=== PATIENT | male | born 1935 | race Two or more races ===

== ENCOUNTER 2024-06-01 13:16 | Emergency (ER) | payer MEDICARE, BC, SELFPAY ==
[2024-06-01 13:28] VITALS: BP 149/83; PULSE 77; RESP 22; TEMP 36.6; O2SAT 95
--- NOTE | 2024-06-01 13:31 | EKG_ITS ---
[facility] Test Date: 2024-06-01 Pat Name: SARA WILSON Department: Room: - Gender: Male Order Processor: : 1935 Requested By: Paulino Gamboa (URINALYSIS TECHNICIAN) Order Number: [id number] Reading MD: Paulino Gamboa (URINALYSIS TECHNICIAN) Measurements Intervals [place] Rate: 80 P: SD: QRS: 258 QRSD: 128 T: 28 QT: 455 QTc: 527 Interpretive Statements ATRIAL FIBRILLATION MARKED RIGHT AXIS DEVIATION [QRS AXIS > 100] RIGHT BUNDLE BRANCH BLOCK [120+ ms QRS DURATION, UPRIGHT V1, 40+ ms S IN I/aVL/V4/V5/V6] ANTEROSEPTAL MYOCARDIAL INFARCTION , OF INDETERMINATE AGE [40+ ms Q WAVE IN V1-V4] Compared to ECG 10/29/2023 14:36:08 Right-axis deviation now present Myocardial infarct finding still present /store/S0/[id number]
--- NOTE | 2024-06-01 13:31 | XR_ITS ---
Examination: PA lateral chest 2 views TECHNIQUE: Upright PA lateral chest 2 views Exam date and time: June 01, 2024 1409 hours Comparison October 29, 2023 INDICATIONS: Wheezing one week. FINDINGS: Mild bibasilar pneumonia Mild prominence left ventricle Retrocardiac gastric hernia Mild vascular congestion IMPRESSION: Mild bibasilar pneumonia
--- NOTE | 2024-06-01 13:31 | PD.EDRME ---
Rapid Medical Screening Exam E Arrival date/time: 06/01/24 13:16 88-year-old male presents emergency department today complaints of cough, congestion, shortness of breath patient currently on antibiotics for UTI Chief Complaint: Flu Like Symptoms Vital signs: Vital Signs Temperature 97.9 F 06/01/24 13:28 Pulse Rate 77 06/01/24 13:28 Respiratory Rate 22 H 06/01/24 13:28 Blood Pressure 149/83 H 06/01/24 13:28 Pulse Oximetry (%) 95 06/01/24 13:28 Oxygen Delivery Method Room Air 06/01/24 13:28
[2024-06-01 13:54] LABS: Basophils % (Auto) 1 % (0-2.5); Eosinophils # (Auto) 0.2 Thou/mm3 (0.0-0.5); Eosinophils % (Auto) 2 % (0-10); Hematocrit 37.3 % (41.0-53.0); Hemoglobin 11.9 g/dL (13.5-16.0); Immature Granulocytes % (Auto) 0 % (0-0); Immature Granulocytes Auto 0.02 Thou/mm3 (0.00-0.00); Lymphocytes # (Auto) 0.9 Thou/mm3 (1.0-4.8); Lymphocytes % (Auto) 13 % (10-50); Mean Corpuscular HGB Conc 31.9 g/dl (31.0-37.0); Mean Corpuscular Hemoglobin 26.9 pg (25.0-35.0); Mean Corpuscular Volume 84 fL (80-100); Monocytes # (Auto) 0.6 Thou/mm3 (0.0-0.8); Monocytes % (Auto) 8 % (0-12); Neutrophils # (Auto) 5.4 Thou/mm3 (1.8-7.7); Neutrophils % (Auto) 76 % (37-80); Nucleated Red Blood Cell % 0 /100 WBC (0); Platelet Count 173 Thou/mm3 (140-440); Red Blood Count 4.43 Miln/mm3 (4.50-5.90)
[2024-06-01 14:07] LABS: INR 1.2 (0.9-1.3); Partial Thromboplastin Time 27.3 Seconds (22.0-36.0); Prothrombin Time 12.5 Seconds (9.0-12.2)
[2024-06-01 14:14] LABS: Alanine Aminotransferase 30 U/L (10-49); Albumin, Serum 3.5 gm/dL (3.4-4.8); Albumin/Globulin Ratio 1.2 (1.2-2.2); Alkaline Phosphatase 114 U/L (46-116); Anion Gap 5 (7-16); Aspartate Amino Transferase 42 U/L (0-34); BUN/Creatinine Ratio 14 Ratio (12-20); Bilirubin,Total 1.2 mg/dL (0.3-1.2); Blood Urea Nitrogen 17 mg/dL (9-23); Calcium (Corrected) 9.4 mg/dL (8.5-10.1); Carbon Dioxide 27.2 mMol/L (20.0-31.0); Chloride 106 mMol/L (98-107); Creatinine (Component) 1.2 mg/dL (0.6-1.3); Glucose 322 mg/dL (74-106); LDH (Lactate Dehydrogenase) 387 U/L (120-246); Magnesium 1.9 mg/dL (1.6-2.6); Osmolality,Calculated 289 (275-295); Potassium 4.1 mMol/L (3.4-5.1); Sodium 138 mMol/L (136-145); Total Protein 6.5 gm/dL (5.7-8.2); eGFR 58 See Note
[2024-06-01 14:28] LABS: Collection Type, Urine Clean Catch; Squamous Epithelial Cell,Urine 0 /hpf (0-5)
[2024-06-01 14:36] LABS: B-Type Natriuretic Peptide 1645 pg/mL (0-100)
[2024-06-01 14:42] LABS: Bilirubin,Urine Negative (Negative); Blood,Urine Trace (Negative); Clarity,Urine Clear (Clear/Hazy); Color,Urine Lt-Yellow (Lt Yel-Yel); Glucose, Urine 3+ (Negative); Ketones,Urine Negative (Negative); Leukocyte Esterase,Urine Negative (Negative); Nitrite,Urine Negative (Negative); Protein,Urine 1+ (Neg - Trace); RBC,Urine 4 /hpf (0-3); Specific Gravity,Urine 1.018 (1.001-1.035); Urobilinogen,Urine Negative mg/dL (0.0-1.0); WBC,Urine 8 /hpf (0-5)
[2024-06-01 14:51] LABS: Amphetamine/Methamp Scrn,U Negative (Negative); Barbiturate Screen,Urine Negative (Negative); Benzodiazepines Screen,Urine Negative (Negative); Benzoylecgonine Screen, Ur Negative (Negative); Fentanyl Screen,Urine Positive (Negative); Opiate Screen,Urine Negative (Negative); THC Screen,Urine Negative (Negative)
[2024-06-01 15:09] VITALS: BP 102/87; PULSE 77; RESP 24; TEMP 36.5; O2SAT 94
[2024-06-01 15:42] VITALS: BMI 25.2
--- NOTE | 2024-06-01 15:49 | PD.EDADULT ---
ED General RME/HPI General Chief complaint: Flu Like Symptoms Stated complaint: WEAK, SOB, BS LEVELS ERRATIC Time Seen by Provider: 06/01/24 15:38 Arrival date/time: 06/01/24 13:16 CC: Some wheezing mild cough with malaise and fatigue over the last several days. Patient denies fever chills denies acute shortness of breath. Daughter at bedside state the diabetes is well-managed they do not have his blood sugars between 103 100 but never in the 300. The patient took his insulin late today secondary to his concerns. The patient is awake alert oriented speaking in full sentences but has audible expiratory wheezing between words. Patient is not in any respiratory distress RME / HPI RME / HPI narrative: 06/01/24 13:16 88-year-old male presents emergency department today complaints of cough, congestion, shortness of breath patient currently on antibiotics for UTI Related Data Home Medications ?Medication ?Instructions ?Recorded ?Confirmed lovastatin 40 mg tablet 40 mg PO HS #0 tabs 04/02/16 10/29/23 mirabegron 50 mg tablet,extended 50 mg PO QDAY 08/27/17 10/29/23 release 24 hr (Myrbetriq) montelukast 10 mg tablet 10 mg PO QDAY 09/17/18 10/29/23 donepezil 5 mg tablet 5 mg PO Q12HR 01/14/22 10/29/23 ferrous sulfate 325 mg (65 mg 325 mg PO QDAY 01/14/22 10/29/23 iron) tablet (FeroSul) losartan 25 mg tablet 25 mg 1XD 06/09/23 10/29/23 acetaminophen 650 mg tablet 650 mg PO Q4H PRN Pain or Fever 07/27/23 10/29/23 bisacodyl 10 mg rectal suppository 10 mg NH QDAY PRN Constipation 07/27/23 10/29/23 (Dulcolax (bisacodyl)) Previous Rx's ?Medication ?Instructions ?Recorded ascorbic acid (vitamin C) 250 mg 500 mg (2 x 250 mg) PO BID #60 tabs 07/31/23 tablet (Vitamin C) zinc sulfate 50 mg zinc (220 mg) 220 mg (4.4 x 50 mg zinc (220 mg)) 07/31/23 capsule PO QDAY #30 caps lancets 30 gauge and blood glucose #50 ea 08/08/23 strips combo pack pen needle, diabetic 32 gauge x #100 ea 08/08/23 1 (Novofine 32) aspirin 81 mg tablet,delayed 81 mg PO QDAY #30 tabs 11/01/23 release flash glucose scanning reader #1 ea 11/01/23 (FreeStyle Ector 2 Bascom) flash glucose sensor (FreeStyle #1 ea 11/01/23 Ector 2 Sensor kit) insulin detemir U-100 100 unit/mL 15 unit (0.15 mL) subcut HS #10 mL 11/01/23 subcutaneous solution (Levemir U-100 Insulin) levothyroxine 125 mcg capsule 125 mcg PO QDAY #30 caps 11/01/23 nitrofurantoin 100 mg PO BID #14 caps 11/01/23 monohydrate/macrocrystals 100 mg capsule pen needle, diabetic 32 gauge x #100 ea 11/01/2307/23 (Novofine 32) insulin lispro 100 unit/mL 1 sliding scale dose subcut .TIDAC 11/02/23 subcutaneous solution #10 mL furosemide 20 mg tablet (Lasix) 20 mg PO QAM #3 tabs 06/01/24 Allergies Allergy/AdvReac Type Severity Reaction Status Date / Time No Known Allergies Allergy Verified 06/01/24 13:20 Review of Systems Review of Systems Narrative Review of Systems: GEN: No fever, no chills, no weight loss EYES: No discharge, no visual changes, no pain HEENT: No ear pain, no congestion, no sore throat PULM: + shortness of breath, no cough, no congestion CV: No chest pain, no dyspnea on exertion, no palpitations GI: No nausea, no vomiting, no diarrhea, no pain, no constipation : No frequency, no urgency, no dysuria MUSC/SKEL: No joint pain, no back pain SKIN: No rash PSYCH: No hallucinations, no depression HEME/LYMPH: No easy bleeding or bruising tendencies NEURO: No weakness, no headache Past Medical History Past Medical History NEUROLOGIC: Positive Dementia; Negative Neurological Disorders or Seizures CARDIAC: Positive Cardiac Disorders, Myocardial Infarction, Coronary Artery Disease, Hypercholesterolemia and Hypertension; Negative Congestive Heart Failure RESPIRATORY: Positive Asthma, Pneumonia and Sleep Apnea; Negative Chronic Obstructive Pulmonary Disease (COPD) GASTROINTESTINAL: Positive Gastrointestinal Disorders, Diverticulosis and Gastroesophageal Reflux Disease GENITOURINARY: Positive Genitourinary Disorders, Kidney Stones and Prostate Cancer; Negative Renal Disease REPRODUCTIVE: Negative Breast Cancer MUSCULOSKELETAL: Positive Musculoskeletal Disorders, Arthritis and Fractures ENT: Positive Cataracts ENDOCRINE: Positive Endocrine Disorders, Diabetes Mellitus Type 2 and Hypothyroidism; Negative Diabetes Mellitus Type 1 HEMATOLOGIC: Negative Blood Disorders, Anemia or Sickle Cell Disease PSYCHO/SOCIAL: Positive Depression OTHER HISTORY: Positive Hospitalization, Blood Transfusions, Radiation Therapy, Chicken Pox, Measles, Mumps, Cancer and Prostate Cancer; Negative Autoimmune Disease, Shingles, Falls, Blood Transfusion Reaction, Anesthesia Reactions, Organ Transplant, Chemotherapy, MRSA or Breast Cancer Family History FAMILY HISTORY: Positive Family Cardiac Disorders, Family Cancer and Family Anesthesia Reaction; Negative Family Psychiatric Problems, Family Respiratory Disorders, Family Gastrointestinal Problems or Family Surgery Surgical History SURGICAL: Positive Cardiac Surgery, Coronary Stent, Ear Surgery and Joint Replacement; Negative Endocrine Surgery, Abdominal Surgery, Nephrectomy, Neurologic Surgery, Vasectomy or Organ Transplant Social History SMOKING STATUS: Never smoker SUBSTANCE USE: does not use ED Exam Narrative Physical exam: [General: Obese not in any acute distress Head normocephalic HEENT: Eyes pupils are PERRLA EOMs are intact, there is right eye circumoral crusting but no injected conjunctiva. All other subsystems of HEENT are within acceptable limits Neck is supple nontender Chest equal chest rise nontender to palpation Respiratory: Bibasilar end inspiratory crackles left side greater than right. Upper lobes clear. CV: Rate rhythm is regular no murmurs rubs or clicks Abdomen is distended secondary to body habitus soft nontender no masses positive bowel sounds all 4 quadrants Back: No CVA tenderness no spinous process tenderness from cervical spine thoracic and lumbar spine Skin: Intact no petechiae rash induration ulceration or crepitus Extremities: Moving all extremity against resistance cap refill less than 2 seconds neurosensory intact. 2+ pitting edema to the lower extremities. Neuro: Awake alert oriented x3 Gl[place]ow coma 15 no focal deficits] Course Course Course Narrative: Patient is voided approximately 300 mL of urine. At 1803 Reexamination of this patient at 1947, the patient is speaking in full sentences with less audible wheezing. There is a decrease in the amount of fluid in the lower extremities the patient is incontinent's and voiding multiple times into her depends that had to be changed several times during the course of the admission to the hospital emergency room. At this time I find there are no acute findings require emergent or immediate intervention the patient has no chest pain shortness of breath has resolved. Patient is an early CHF. Patient will be discharged home with 3 days worth of low-dose Lasix. Daughter and patient are in agreement with this plan. Quality Measures none Orders Category Date Time Status Bedside COVID-19 Antigen Test NOW Care 06/01/24 13:31 Completed Bedside Influenza A&B Antigen Test NOW Care 06/01/24 13:31 Completed EKG (ED ONLY) *Do not use* NOW Care 06/01/24 13:31 Completed Saline [Insert IV] NOW Care 06/01/24 15:46 Completed EKG (ED Only) Stat Exams 06/01/24 13:31 Draft XR chest 2V Stat Exams 06/01/24 13:31 Completed B-Type Natriuretic Peptide Stat Lab 06/01/24 13:43 Completed CBC Stat Lab 06/01/24 13:43 Completed Comprehensive Metabolic Panel Stat Lab 06/01/24 13:43 Completed Drug Screen,Urine Stat Lab 06/01/24 14:02 Completed LDH (Lactate Dehydrogenase) Stat Lab 06/01/24 13:43 Completed Magnesium Stat Lab 06/01/24 13:43 Completed Partial Thromboplastin Time Stat Lab 06/01/24 13:43 Completed Prothrombin Time with INR Stat Lab 06/01/24 13:43 Completed Troponin I Stat Lab 06/01/24 13:43 Completed Urinalysis Stat Lab 06/01/24 14:02 Completed Furosemide [Lasix Inj] Med 06/01/24 15:46 Discontinued 20 mg IVP X1 ONE Vital Signs Vital signs: Vital Signs Temperature 97.9 F 06/01/24 13:28 Pulse Rate 77 06/01/24 13:28 Respiratory Rate 22 H 06/01/24 13:28 Blood Pressure 149/83 H 06/01/24 13:28 Pulse Oximetry (%) 95 06/01/24 13:28 Oxygen Delivery Method Room Air 06/01/24 13:28 [facility] Patient data External records reviewed:: [facility] previous records Clinical information provided by:: patient and family Social determinants that could affect healthcare access:: none Patient has the following chronic illnesses:: Diabetes hypertension How is presenting disease/condition affected by chronic disease/condition?: uneffected by Evaluation data The following diagnostics were reviewed and interpreted by me:: lab results, radiology exam(s) and EKG tracing(s) Lab and/or radiology exams considered but not ordered:: EKG performed at 1336 shows ventricular rate of 80 QRS of 128 QTc of 491 this is A-fib right axis deviation. When compared to an old EKG of October 2023 there are no significant changes. CBC shows no leukocytosis H&H of 11 and 37 is stable anemia, no thrombocytopenia Coags show an INR 1.2 PT PTT within acceptable limits CMP shows sodium 138 potassium 4.1 chloride of 106 CO2 of 27.2 BUN of 17 creatinine 1.2 glucose of 322. LDH of 357 Troponin 0.07 BNP of 1647 Interpretation Summary: Although troponin is elevated when reviewed and it is minimally elevated compared to almost every other lab draw which shows an elevated troponin higher than this 1 BNP is elevated at last BMP is several years ago and was only 380. I suspect this patient is mildly fluid overloaded. Medications Medications considered but not ordered:: None Medication administrations:: Medication Administration History Discontinued Medications Furosemide (Furosemide Inj 10 Mg/Ml Vial 2 Ml) 20 mg IVP X1 ONE Stop: 06/01/24 15:47 Last Admin: 06/01/24 16:10 Dose: 20 mg Documented By: HARINDER None Consultations Consultation(s) initiated? (list below): No Diagnosis Differential Diagnosis ED Complaint MDM: CHF COPD pneumonia Most likely diagnosis given after review of the tests above:: CHF Admission Indicated Admission indicated?: not indicated Explain why admission is indicated or not indicated:: Stable for outpatient follow-up Admission Request Was there a request for admission?: No Disposition Plan Disposition Plan: Discharge Discharge Attestation Discharge Attestation: The patient and all family members were given an opportunity to ask questions and understood the discharge instructions. Discharge instructions specifically effects, indications for sooner follow up or return to the emergency department, and the expected course of current diagnosis. Patient condition: Stable Medical Decision Making Differential Diagnosis Differential Diagnosis: CHF COPD pneumonia Lab Data 06/01/24 13:43 06/01/24 13:43 Labs: Lab Results 06/01/24 06/01/24 Range/Units 13:43 14:02 WBC 7.0 (3.8-10.6) Thou/mm3 RBC 4.43 L (4.50-5.90) Miln/mm3 Hgb 11.9 L (13.5-16.0) g/dL Hct 37.3 L (41.0-53.0) % MCV 84 (80-100) fL MCH 26.9 (25.0-35.0) pg MCHC 31.9 (31.0-37.0) g/dl RDW Std Deviation 52.0 H (35.1-43.9) fL Plt Count 173 (140-440) Thou/mm3 Neut % (Auto) 76 (37-80) % Lymph % (Auto) 13 (10-50) % [place] % (Auto) 8 (0-12) % Eos % (Auto) 2 (0-10) % Baso % (Auto) 1 (0-2.5) % Neut # (Auto) 5.4 (1.8-7.7) Thou/mm3 Lymph # (Auto) 0.9 L (1.0-4.8) Thou/mm3 [place] # (Auto) 0.6 (0.0-0.8) Thou/mm3 Eos # (Auto) 0.2 (0.0-0.5) Thou/mm3 Baso # (Auto) 0.0 (0.0-0.2) Thou/mm3 Immature Gran # (Auto) 0.02 H (0.00-0.00) Thou/mm3 Absolute Nucleated RBC 0.00 (0.00-0.00) Thou/mm3 Immature Gran % 0 (0-0) % Nucleated RBC % 0 (0) /100 WBC PT 12.5 H (9.0-12.2) Seconds INR 1.2 (0.9-1.3) APTT 27.3 (22.0-36.0) Seconds Sodium 138 (136-145) mMol/L Potassium 4.1 (3.4-5.1) mMol/L Chloride 106 (98-107) mMol/L Carbon Dioxide 27.2 (20.0-31.0) mMol/L Anion Gap 5 L (7-16) BUN 17 (9-23) mg/dL Creatinine 1.2 (0.6-1.3) mg/dL Estim Creat Clear Calc Not Performed. eGFR 58 L (60 - ) See Note BUN/Creatinine Ratio 14 (12-20) Ratio Glucose 322 H (74-106) mg/dL Calculated Osmolality 289 (275-295) Calcium 9.0 (8.3-10.6) mg/dL Corrected Calcium 9.4 (8.5-10.1) mg/dL Magnesium 1.9 (1.6-2.6) mg/dL Total Bilirubin 1.2 (0.3-1.2) mg/dL AST 42 H (0-34) U/L ALT 30 (10-49) U/L Alkaline Phosphatase 114 (46-116) U/L Lactate Dehydrogenase 387 H (120-246) U/L Troponin I 0.070 H* (0.0-0.045) ng/mL B-Natriuretic Peptide 1645 H* (0-100) pg/mL Total Protein 6.5 (5.7-8.2) gm/dL Albumin 3.5 (3.4-4.8) gm/dL Globulin 3.0 (2.3-3.5) gm/dL Albumin/Globulin Ratio 1.2 (1.2-2.2) Ur Collection Type Clean Catch Urine Color Lt-Yellow (Lt Yel-Yel) Urine Clarity Clear (Clear/Hazy) Urine pH 6.0 (5.0-7.0) Ur Specific [place] 1.018 (1.001-1.035) Urine Protein 1+ A (Neg - Trace) Urine Glucose (UA) 3+ A (Negative) Urine Ketones Negative (Negative) Urine Blood Trace (Negative) Urine Nitrite Negative (Negative) Urine Bilirubin Negative (Negative) Urine Urobilinogen (Auto) Negative (0.0-1.0) mg/dL Ur Leukocyte Esterase Negative (Negative) Urine RBC 4 H (0-3) /hpf Urine WBC 8 H (0-5) /hpf Ur Squamous Epith Cells 0 (0-5) /hpf Urine Bacteria None (None) Urine Opiates Screen Negative (Negative) Urine Fentanyl Screen Positive A (Negative) Ur Barbiturates Screen Negative (Negative) U Amphetamin/Meth Scrn Negative (Negative) U Benzodiazepines Scrn Negative (Negative) U Cocaine Metab Screen Negative (Negative) U Marijuana (THC) Screen Negative (Negative) Discharge Plan Plan Patient Disposition: HOME (Self Care) Patient condition on transfer: Stable Prescriptions/Referrals Prescriptions/Med Rec: New furosemide [Lasix] 20 mg tablet 20 mg PO QAM Qty: 3 0RF No Action lovastatin 40 MG tablet 40 mg PO HS Qty: 0 donepezil 5 mg tablet 5 mg PO Q12HR Patient Comments: TAKE 1 TABLET BY MOUTH AT BEDTIME ferrous sulfate [FeroSul] 325 mg (65 mg iron) tablet 325 mg PO QDAY Patient Comments: TAKE 1 TABLET BY MOUTH EVERY DAY Myrbetriq 50 mg Tablet Extended Release 24 Hr 50 mg PO QDAY montelukast 10 mg Tablet 10 mg PO QDAY acetaminophen 650 mg Tablet 650 mg PO Q4H PRN (Reason: Pain or Fever) bisacodyl [Dulcolax (bisacodyl)] 10 mg Suppository 10 mg NH QDAY PRN (Reason: Constipation) Rx Instructions: If MOM ineffective or no BM for 8 hours ascorbic acid (vitamin C) [Vitamin C] 250 mg Tablet 500 mg PO BID Qty: 60 0RF zinc sulfate 50 mg zinc (220 mg) Capsule 220 mg PO QDAY Qty: 30 0RF (DME) pen needle, diabetic [Novofine 32] 32 gauge x 1/4 needle See Rx Instructions .Route Qty: 100 2RF Rx Instructions: As directed (DME) lancets-blood glucose strips 30 gauge combo pack See Rx Instructions .Route Qty: 50 2RF Rx Instructions: As directed losartan 25 mg tablet 25 mg 1XD Patient Comments: TAKE 3 TABLET BY MOUTH EVERY DAY AT NOON nitrofurantoin monohyd/m-cryst 100 mg Capsule 100 mg PO BID Qty: 14 0RF aspirin 81 mg Tablet,Delayed Release (Dr/Ec) 81 mg PO QDAY Qty: 30 0RF (DME) FreeStyle Ector 2 Bascom Misc See Rx Instructions .Route Qty: 1 0RF Rx Instructions: As directed (DME) FreeStyle Ector 2 Sensor Kit See Rx Instructions .Route Qty: 1 0RF Rx Instructions: As directed levothyroxine 125 mcg capsule 125 mcg PO QDAY Qty: 30 0RF Rx Instructions: take 1/2 capsule Levemir U-100 Insulin 100 unit/mL solution 15 unit subcut HS Qty: 10 1RF (DME) pen needle, diabetic [Novofine 32] 32 gauge x 1/4 needle See Rx Instructions .Route Qty: 100 0RF Rx Instructions: As directed insulin lispro 100 unit/mL solution 1 sliding scale dose subcut .TIDAC MDD 30 units Qty: 10 0RF Rx Instructions: Per patient's sliding scale Referrals: Chris Teran MD [Primary Care Provider] - In 1 week Problem List Clinical Impression: Congestive heart failure Patient/Caregiver Discharge Instructions Other Activity Instructions:: Avoid high salt content follow-up with Dr. Abdias Crowe as stated. If there are worsening of symptoms in spite of medications return immediately to the emergency room for reevaluation. Education Materials: Heart Failure Dc Print Language: Burmese Stand Alone Forms: [place] Award Info., Work/School Release, Patient Portal Info Letter MD Attestation MD Attestation The patient was seen by the midlevel practitioner. I, the co-signing physician, was present during the entire ER visit. While I did not physically examine the patient, I was available for consultation as needed.
[2024-06-01 16:10] VITALS: BP 120/82; PULSE 80
[2024-06-01] MEDS: FUROSEMIDE INJ 10 MG/ML VIAL 2 ML 20 MG IVP (16:10)
[2024-06-01 18:37] VITALS: BP 172/100; PULSE 61; RESP 15; TEMP 36.4; O2SAT 95
--- NOTE | 2024-06-01 19:11 | PC.NURSE ---
pt has been inc of urine and brief is saturated. Pt has been up 4 or 5 times attempting BM. myriam said that is not unusual for hime. Pt in no acute distress.
--- NOTE | 2024-06-01 19:33 | PC.NURSE ---
Assume care for this 88 year old male and got report from [employer]. Pt is here with c/o of SOB with generalized malaise. Pt is a GCS of 15, A&O X4 and daughter at bedside.
[2024-06-01 20:09] VITALS: BP 170/103; PULSE 63; RESP 16; TEMP 36.6; O2SAT 94
== END 2024-06-01 20:09 | disposition home or self-care (01) ==
PROVIDERS: Nurse Practitioner Primary Care; Emergency Provider Emergency Medicine; PCP Internal Medicine
DX: I11.0 Hypertensive heart disease with heart failure (principal); I50.9 Heart failure, unspecified; R79.89 Other specified abnormal findings of blood chemistry; I48.91 Unspecified atrial fibrillation; I45.10 Unspecified right bundle-branch block; I25.10 Atherosclerotic heart disease of native coronary artery without angina pectoris; E78.00 Pure hypercholesterolemia, unspecified; I25.2 Old myocardial infarction
CPT/HCPCS: 36415; 71046; 80053; 80307; 81001; 83615; 83735; 83880; 84484; 85025; 85610; 85730; 87400; 87811; 93005; 96374; 99284; J1940

== ENCOUNTER 2024-06-27 14:24 | Emergency (ER) | payer MEDICARE, BC, SELFPAY ==
[2024-06-27 14:26] VITALS: BMI 25.0
[2024-06-27 14:38] VITALS: BP 142/86; PULSE 64; RESP 18; TEMP 36.4; O2SAT 93
--- NOTE | 2024-06-27 14:51 | XR_ITS ---
Examination: AP lateral chest 2 views TECHNIQUE: Upright AP lateral chest 2 views Exam date and time: June 27, 2024 1519 hours Comparison June 01, 2024 INDICATIONS: SOB today. FINDINGS: Bilateral perihilar bibasilar pneumonia Mild prominence left ventricle with mild vascular congestion Reduced inspiratory effort IMPRESSION: Bilateral pneumonia
--- NOTE | 2024-06-27 14:51 | EKG_ITS ---
[facility] Test Date: 2024-06-27 Pat Name: SARA WILSON Department: Room: - Gender: Male Dishtank Operator: : 1935 Requested By: Jeb Garcia Order Number: [id number] Reading MD: Jeb Garcia Measurements Intervals [place] Rate: 87 P: 256 MD: 247 QRS: -37 QRSD: 141 T: 21 QT: 421 QTc: 507 Interpretive Statements SINUS RHYTHM WITH FIRST DEGREE AV BLOCK INDETERMINATE AXIS RIGHT BUNDLE BRANCH BLOCK [120+ ms QRS DURATION, UPRIGHT V1, 40+ ms S IN I/aVL/V4/V5/V6] POSSIBLE ANTERIOR MYOCARDIAL INFARCTION , OF INDETERMINATE AGE [30 ms Q WAVE IN V3/V4, OR R < 0.2 mV IN V4] Compared to ECG 06/01/2024 13:36:48 First degree AV block now present Indeterminate axis now present Atrial fibrillation no longer present Right-axis deviation no longer present Myocardial infarct finding still present /store/S0/[id number]
--- NOTE | 2024-06-27 14:52 | PD.EDRME ---
Rapid Medical Screening Exam RME Arrival date/time: 06/27/24 14:24 88-year-old male with a history of CHF reports with complaints of shortness of breath lower extremity swelling and redness for several days Chief Complaint: Extremity Problem,Nontraumatic Time Seen by Provider: 06/27/24 14:27 Vital signs: Vital Signs Temperature 97.6 F 06/27/24 14:38 Pulse Rate 64 06/27/24 14:38 Respiratory Rate 18 06/27/24 14:38 Blood Pressure 142/86 H 06/27/24 14:38 Pulse Oximetry (%) 93 L 06/27/24 14:38 Oxygen Delivery Method Room Air 06/27/24 14:38
[2024-06-27 15:43] LABS: Basophils # (Auto) 0.1 Thou/mm3 (0.0-0.2); Basophils % (Auto) 1 % (0-2.5); Eosinophils # (Auto) 0.1 Thou/mm3 (0.0-0.5); Eosinophils % (Auto) 2 % (0-10); Hematocrit 38.9 % (41.0-53.0); Hemoglobin 12.1 g/dL (13.5-16.0); Immature Granulocytes % (Auto) 0 % (0-0); Immature Granulocytes Auto 0.01 Thou/mm3 (0.00-0.00); Lymphocytes % (Auto) 15 % (10-50); Mean Corpuscular HGB Conc 31.1 g/dl (31.0-37.0); Mean Corpuscular Volume 84 fL (80-100); Monocytes # (Auto) 0.6 Thou/mm3 (0.0-0.8); Monocytes % (Auto) 9 % (0-12); Neutrophils # (Auto) 5.1 Thou/mm3 (1.8-7.7); Neutrophils % (Auto) 74 % (37-80); Nucleated Red Blood Cell % 0 /100 WBC (0); Platelet Count 153 Thou/mm3 (140-440); RDW Standard Deviation 52.1 fL (35.1-43.9); Red Blood Count 4.65 Miln/mm3 (4.50-5.90)
[2024-06-27 16:10] LABS: Alanine Aminotransferase 25 U/L (10-49); Albumin, Serum 3.7 gm/dL (3.4-4.8); Albumin/Globulin Ratio 1.3 (1.2-2.2); Alkaline Phosphatase 117 U/L (46-116); Anion Gap 4 (7-16); Aspartate Amino Transferase 35 U/L (0-34); B-Type Natriuretic Peptide 1585 pg/mL (0-100); BUN/Creatinine Ratio 13 Ratio (12-20); Blood Urea Nitrogen 15 mg/dL (9-23); Calcium (Corrected) 9.2 mg/dL (8.5-10.1); Carbon Dioxide 32.3 mMol/L (20.0-31.0); Chloride 102 mMol/L (98-107); Creatinine (Component) 1.2 mg/dL (0.6-1.3); Estimated Creatinine Clearance 41.2 mL/min (>60); Globulin 2.9 gm/dL (2.3-3.5); Glucose 251 mg/dL (74-106); Osmolality,Calculated 284 (275-295); Potassium 4.3 mMol/L (3.4-5.1); Sodium 138 mMol/L (136-145); Total Protein 6.6 gm/dL (5.7-8.2); eGFR 58 See Note
[2024-06-27 16:15] LABS: Troponin I 0.063 ng/mL (0.0-0.045)
[2024-06-27 17:06] VITALS: BP 157/100; BP 167/109; PULSE 78; RESP 19; TEMP 36.7; O2SAT 98
--- NOTE | 2024-06-27 17:15 | XR_ITS ---
Examination: Venous duplex lower extremity sonogram, bilateral. Date and time of exam: June 27, 2024 1835 hrs. Indications: Bilateral leg redness swelling and pain beginning one month ago Technique: Multiple sonographic images of the deep venous system have been obtained. B-mode/2-D grayscale imaging of vascular structures and Doppler spectral analysis (waveforms) and color performed Both legs are examined. Findings: Deep venous systems do not demonstrate abnormal echogenicity. All visualized deep veins exhibit compressibility. All visualized deep veins exhibit augmentation. Impression: Negative for deep vein thrombosis
--- NOTE | 2024-06-27 17:15 | PC.NURSE ---
Patient states he has swelling to his bilateral legs accompanied by intermittent pain which is worse on his right leg just above the knee. He has pitting edema to bilateral lower extremities as well as the right side of his abdomen. Uses a cane and walker at home. GCS 15 aao x 4.
--- NOTE | 2024-06-27 17:21 | EDNOTE_ITS ---
ED General RME/HPI General Chief complaint: Extremity Problem,Nontraumatic Stated complaint: REDNESS TO BLE X4 DAYS, WHEEZING Time Seen by Provider: 06/27/24 14:27 Arrival date/time: 06/27/24 14:24 CC: Controlled mild shortness of breath and swelling in both legs HPI of this same event this happened 1 month ago when I had the privilege of seeing this patient then. The patient has exertional dyspnea, with swelling back in the legs family member at bedside who is there 1 month ago states the patient was given 3 days worth of Lasix at home recovered nicely and then slowly over the last month filled back up . Patient denies any chest pain significant shortness of breath while lying supine in bed. Family members deny fever. RME / HPI RME / HPI narrative: 06/27/24 14:24 88-year-old male with a history of CHF reports with complaints of shortness of breath lower extremity swelling and redness for several days Related Data Home Medications ?Medication ?Instructions ?Recorded ?Confirmed lovastatin 40 mg tablet 40 mg PO HS #0 tabs 04/02/16 10/29/23 mirabegron 50 mg tablet,extended 50 mg PO QDAY 08/27/17 10/29/23 release 24 hr (Myrbetriq) montelukast 10 mg tablet 10 mg PO QDAY 09/17/18 10/29/23 donepezil 5 mg tablet 5 mg PO Q12HR 01/14/22 10/29/23 ferrous sulfate 325 mg (65 mg 325 mg PO QDAY 01/14/22 10/29/23 iron) tablet (FeroSul) losartan 25 mg tablet 25 mg 1XD 06/09/23 10/29/23 acetaminophen 650 mg tablet 650 mg PO Q4H PRN Pain or Fever 07/27/23 10/29/23 bisacodyl 10 mg rectal suppository 10 mg MD QDAY PRN Constipation 07/27/23 10/29/23 (Dulcolax (bisacodyl)) Previous Rx's ?Medication ?Instructions ?Recorded ascorbic acid (vitamin C) 250 mg 500 mg (2 x 250 mg) PO BID #60 tabs 07/31/23 tablet (Vitamin C) zinc sulfate 50 mg zinc (220 mg) 220 mg (4.4 x 50 mg zinc (220 mg)) 07/31/23 capsule PO QDAY #30 caps lancets 30 gauge and blood glucose #50 ea 08/08/23 strips combo pack pen needle, diabetic 32 gauge x #100 ea 08/08/2307/23 (Novofine 32) aspirin 81 mg tablet,delayed 81 mg PO QDAY #30 tabs 11/01/23 release flash glucose scanning reader #1 ea 11/01/23 (FreeStyle Ector 2 [place]) flash glucose sensor (FreeStyle #1 ea 11/01/23 Ector 2 Sensor kit) insulin detemir U-100 100 unit/mL 15 unit (0.15 mL) subcut HS #10 mL 11/01/23 subcutaneous solution (Levemir U-100 Insulin) levothyroxine 125 mcg capsule 125 mcg PO QDAY #30 caps 11/01/23 nitrofurantoin 100 mg PO BID #14 caps 11/01/23 monohydrate/macrocrystals 100 mg capsule pen needle, diabetic 32 gauge x #100 ea 11/01/2307/23 (Novofine 32) insulin lispro 100 unit/mL 1 sliding scale dose subcut .TIDAC 11/02/23 subcutaneous solution #10 mL furosemide 20 mg tablet (Lasix) 20 mg PO QAM #3 tabs 06/01/24 furosemide 20 mg tablet (Lasix) 20 mg PO QAM #10 tabs 06/27/24 Allergies Allergy/AdvReac Type Severity Reaction Status Date / Time No Known Allergies Allergy Verified 06/27/24 14:29 Review of Systems Review of Systems Narrative Review of Systems: GEN: No fever, no chills, no weight loss EYES: No discharge, no visual changes, no pain HEENT: No ear pain, no congestion, no sore throat PULM: + shortness of breath, no cough, no congestion CV: No chest pain, no dyspnea on exertion, no palpitations GI: No nausea, no vomiting, no diarrhea, no pain, no constipation : No frequency, no urgency, no dysuria MUSC/SKEL: No joint pain, no back pain SKIN: No rash PSYCH: No hallucinations, no depression HEME/LYMPH: No easy bleeding or bruising tendencies NEURO: No weakness, no headache Past Medical History Past Medical History NEUROLOGIC: Positive Dementia; Negative Neurological Disorders or Seizures CARDIAC: Positive Cardiac Disorders, Myocardial Infarction, Coronary Artery Disease, Hypercholesterolemia and Hypertension; Negative Congestive Heart Failure RESPIRATORY: Positive Asthma, Pneumonia and Sleep Apnea; Negative Chronic Obstructive Pulmonary Disease (COPD) GASTROINTESTINAL: Positive Gastrointestinal Disorders, Diverticulosis and Gastroesophageal Reflux Disease GENITOURINARY: Positive Genitourinary Disorders, Kidney Stones and Prostate Cancer; Negative Renal Disease REPRODUCTIVE: Negative Breast Cancer MUSCULOSKELETAL: Positive Musculoskeletal Disorders, Arthritis and Fractures ENT: Positive Cataracts ENDOCRINE: Positive Endocrine Disorders, Diabetes Mellitus Type 2 and Hypothyroidism; Negative Diabetes Mellitus Type 1 HEMATOLOGIC: Negative Blood Disorders, Anemia or Sickle Cell Disease PSYCHO/SOCIAL: Positive Depression OTHER HISTORY: Positive Hospitalization, Blood Transfusions, Radiation Therapy, Chicken Pox, Measles, Mumps, Cancer and Prostate Cancer; Negative Autoimmune Disease, Shingles, Falls, Blood Transfusion Reaction, Anesthesia Reactions, Organ Transplant, Chemotherapy, MRSA or Breast Cancer Family History FAMILY HISTORY: Positive Family Cardiac Disorders, Family Cancer and Family Anesthesia Reaction; Negative Family Psychiatric Problems, Family Respiratory Disorders, Family Gastrointestinal Problems or Family Surgery Surgical History SURGICAL: Positive Cardiac Surgery, Coronary Stent, Ear Surgery and Joint Replacement; Negative Endocrine Surgery, Abdominal Surgery, Nephrectomy, Neurologic Surgery, Vasectomy or Organ Transplant Social History SMOKING STATUS: Never smoker SUBSTANCE USE: does not use ED Exam Narrative Physical exam: [General: Appears not in any acute distress while supine in bed Head normocephalic HEENT: Eyes pupils are PERRLA EOMs are intact mouth pink dry membranes uvula midline swallow symmetrical other subsystems HEENT are within acceptable limits Neck is supple nontender no JVD no edema Chest equal chest rise nontender to palpation Respiratory: Clear to auscultation no wheezes crackles or rubs CV: Rate rhythm is regular no murmurs rubs or clicks Abdomen is distended secondary to body habitus soft, firm area to the right lower abdomen suggestive of fluid overload no left-sided edema. Back: No CVA tenderness no spinous process tenderness from cervical spine thoracic and lumbar spine Skin: Small number of lower extremity open ulcerations or weeping clear fluid. Otherwise skin is intact no petechiae rash induration ulceration or crepitus Extremities: Nonpitting edema to both lower extremities extending from the ankles up to approximately 10 cm distal to the knee. Moving all extremities weakly, against resistance cap refill less than 2 seconds neurosensory intact Neuro: Awake alert oriented x2, person and place, Glascow coma 15 no focal deficits] Course Course Course Narrative: This the second time I have seen this patient in a month for the same complaint of fluid overload, I discussed the patient's condition with Dr. Gutierrez who his the patient's nurse college and agrees the patient can be discharged home on Lasix, and they are to follow-up in Dr. Gutierrez's office tomorrow or the following day. I notified the daughter of his request and she is agreeable with this plan. Reassessment of this patient at 1999, the patient's lower extremity edema has decreased as the skin is becoming less taut less shiny than initially. Patient voided into diaper, and it was not captured unknown how much fluid was diuresed. Quality Measures VTE prophylaxis Orders Category Date Time Status EKG (ED ONLY) *Do not use* NOW Care 06/27/24 14:52 Completed Alvarez [Urinary Catheter] QS Care 06/27/24 17:38 Active EKG (ED Only) Stat Exams 06/27/24 14:51 Draft US venous doppler LE BI Stat Exams 06/27/24 17:15 Completed XR chest 2V Stat Exams 06/27/24 14:51 Completed BNP [B-Type Natriuretic Peptide] Stat Lab 06/27/24 15:21 Completed CBC Stat Lab 06/27/24 15:21 Completed CMP [Comprehensive Metabolic Panel] Stat Lab 06/27/24 15:21 Completed Troponin I Stat Lab 06/27/24 15:21 Completed Furosemide [Lasix Inj] Med 06/27/24 17:18 Discontinued 20 mg IVP X1 ONE Vital Signs Vital signs: Vital Signs Temperature 97.6 F 06/27/24 14:38 Pulse Rate 64 06/27/24 14:38 Respiratory Rate 18 06/27/24 14:38 Blood Pressure 142/86 H 06/27/24 14:38 Pulse Oximetry (%) 93 L 06/27/24 14:38 Oxygen Delivery Method Room Air 06/27/24 14:38 [facility] Patient data External records reviewed:: [facility] previous records Clinical information provided by:: none Social determinants that could affect healthcare access:: none Patient has the following chronic illnesses:: CHF How is presenting disease/condition affected by chronic disease/condition?: e xacerbated by Evaluation data The following diagnostics were reviewed and interpreted by me:: lab results and radiology exam(s) Lab and/or radiology exams considered but not ordered:: CBC shows no acute leukocytosis anemia thrombocytopenia CMP shows no acute electrolyte imbalances renal impairment transaminitis or T. bili elevation. Ultrasound of the lower extremities is negative for DVT. Interpretation Summary: This is a second in a month visits to the emergency room for lower extremity edema and congestive heart failure patient is now got a follow-up with by a friend, and started on daily Lasix. Medications Medications considered but not ordered:: None Medication administrations:: Medication Administration History Discontinued Medications Furosemide (Furosemide Inj 10 Mg/Ml Vial 2 Ml) 20 mg IVP X1 ONE Stop: 06/27/24 17:19 Last Admin: 06/27/24 17:33 Dose: 20 mg Documented By: RD None Consultations Consultation(s) initiated? (list below): No Diagnosis Differential Diagnosis ED Complaint MDM: ACS [place] CHF pneumonia Most likely diagnosis given after review of the tests above:: CHF bilateral lower extremity edema Admission Indicated Admission indicated?: not indicated Explain why admission is indicated or not indicated:: Stable for outpatient follow-up with Dr. Gutierrez's office tomorrow Admission Request Was there a request for admission?: No Disposition Plan Disposition Plan: Discharge Discharge Attestation Discharge Attestation: The patient and all family members were given an opportunity to ask questions and understood the discharge instructions. Discharge instructions specifically effects, indications for sooner follow up or return to the emergency department, and the expected course of current diagnosis. Patient condition: Stable Medical Decision Making Differential Diagnosis Differential Diagnosis: ACS [place] CHF pneumonia Lab Data 06/27/24 15:21 06/27/24 15:21 Labs: Lab Results 06/27/24 Range/Units 15:21 WBC 7.0 (3.8-10.6) Thou/mm3 RBC 4.65 (4.50-5.90) Miln/mm3 Hgb 12.1 L (13.5-16.0) g/dL Hct 38.9 L (41.0-53.0) % MCV 84 (80-100) fL MCH 26.0 (25.0-35.0) pg MCHC 31.1 (31.0-37.0) g/dl RDW Std Deviation 52.1 H (35.1-43.9) fL Plt Count 153 (140-440) Thou/mm3 Neut % (Auto) 74 (37-80) % Lymph % (Auto) 15 (10-50) % [place] % (Auto) 9 (0-12) % Eos % (Auto) 2 (0-10) % Baso % (Auto) 1 (0-2.5) % Neut # (Auto) 5.1 (1.8-7.7) Thou/mm3 Lymph # (Auto) 1.0 (1.0-4.8) Thou/mm3 [place] # (Auto) 0.6 (0.0-0.8) Thou/mm3 Eos # (Auto) 0.1 (0.0-0.5) Thou/mm3 Baso # (Auto) 0.1 (0.0-0.2) Thou/mm3 Immature Gran # (Auto) 0.01 H (0.00-0.00) Thou/mm3 Absolute Nucleated RBC 0.00 (0.00-0.00) Thou/mm3 Immature Gran % 0 (0-0) % Nucleated RBC % 0 (0) /100 WBC Sodium 138 (136-145) mMol/L Potassium 4.3 (3.4-5.1) mMol/L Chloride 102 (98-107) mMol/L Carbon Dioxide 32.3 H (20.0-31.0) mMol/L Anion Gap 4 L (7-16) BUN 15 (9-23) mg/dL Creatinine 1.2 (0.6-1.3) mg/dL Estim Creat Clear Calc 41.2 L (>60) mL/min eGFR 58 L (60 - ) See Note BUN/Creatinine Ratio 13 (12-20) Ratio Glucose 251 H (74-106) mg/dL Calculated Osmolality 284 (275-295) Calcium 9.0 (8.3-10.6) mg/dL Corrected Calcium 9.2 (8.5-10.1) mg/dL Total Bilirubin 1.0 (0.3-1.2) mg/dL AST 35 H (0-34) U/L ALT 25 (10-49) U/L Alkaline Phosphatase 117 H (46-116) U/L Troponin I 0.063 H* (0.0-0.045) ng/mL B-Natriuretic Peptide 1585 H* (0-100) pg/mL Total Protein 6.6 (5.7-8.2) gm/dL Albumin 3.7 (3.4-4.8) gm/dL Globulin 2.9 (2.3-3.5) gm/dL Albumin/Globulin Ratio 1.3 (1.2-2.2) Discharge Plan Plan Patient Disposition: HOME (Self Care) Patient condition on transfer: Stable Prescriptions/Referrals Prescriptions/Med Rec: New furosemide [Lasix] 20 mg tablet 20 mg PO QAM Qty: 10 0RF No Action lovastatin 40 MG tablet 40 mg PO HS Qty: 0 donepezil 5 mg tablet 5 mg PO Q12HR Patient Comments: TAKE 1 TABLET BY MOUTH AT BEDTIME ferrous sulfate [FeroSul] 325 mg (65 mg iron) tablet 325 mg PO QDAY Patient Comments: TAKE 1 TABLET BY MOUTH EVERY DAY Myrbetriq 50 mg Tablet Extended Release 24 Hr 50 mg PO QDAY montelukast 10 mg Tablet 10 mg PO QDAY acetaminophen 650 mg Tablet 650 mg PO Q4H PRN (Reason: Pain or Fever) bisacodyl [Dulcolax (bisacodyl)] 10 mg Suppository 10 mg MD QDAY PRN (Reason: Constipation) Rx Instructions: If MOM ineffective or no BM for 8 hours ascorbic acid (vitamin C) [Vitamin C] 250 mg Tablet 500 mg PO BID Qty: 60 0RF zinc sulfate 50 mg zinc (220 mg) Capsule 220 mg PO QDAY Qty: 30 0RF (DME) pen needle, diabetic [Novofine 32] 32 gauge x 1/4 needle See Rx Instructions .Route Qty: 100 2RF Rx Instructions: As directed (DME) lancets-blood glucose strips 30 gauge combo pack See Rx Instructions .Route Qty: 50 2RF Rx Instructions: As directed losartan 25 mg tablet 25 mg 1XD Patient Comments: TAKE 3 TABLET BY MOUTH EVERY DAY AT NOON nitrofurantoin monohyd/m-cryst 100 mg Capsule 100 mg PO BID Qty: 14 0RF aspirin 81 mg Tablet,Delayed Release (Dr/Ec) 81 mg PO QDAY Qty: 30 0RF (DME) FreeStyle Ector 2 [place] Misc See Rx Instructions .Route Qty: 1 0RF Rx Instructions: As directed (DME) FreeStyle Ector 2 Sensor Kit See Rx Instructions .Route Qty: 1 0RF Rx Instructions: As directed levothyroxine 125 mcg capsule 125 mcg PO QDAY Qty: 30 0RF Rx Instructions: take 1/2 capsule Levemir U-100 Insulin 100 unit/mL solution 15 unit subcut HS Qty: 10 1RF (DME) pen needle, diabetic [Novofine 32] 32 gauge x 1/4 needle See Rx Instructions .Route Qty: 100 0RF Rx Instructions: As directed insulin lispro 100 unit/mL solution 1 sliding scale dose subcut .TIDAC MDD 30 units Qty: 10 0RF Rx Instructions: Per patient's sliding scale furosemide [Lasix] 20 mg tablet 20 mg PO QAM Qty: 3 0RF Referrals: Chris Teran MD [Primary Care Provider] - In 1 week Gibson Gutierrez MD [Physician] - In 1 week Problem List Clinical Impression: CHF (congestive heart failure), Bilateral edema of lower extremity Patient/Caregiver Discharge Instructions Other Activity Instructions:: Give the Lasix each morning follow-up with Dr. Gutierrez's office tomorrow or the following day June 29. If, in spite of the medications the edema becomes worsened or the shortness of breath worsens, return to the emergency room for further evaluation Education Materials: Coping with Heart Failure Print Language: Azeri Stand Alone Forms: [place] Award Info., Patient Portal Info Letter, Work/School Release PA/MARKETING OPERATIONS SPECIALIST Supervising Physician PA/MARKETING OPERATIONS SPECIALIST Supervising Physician: Adalberto Mcdonald ENP
[2024-06-27 17:33] VITALS: BP 153/99; PULSE 77
[2024-06-27] MEDS: FUROSEMIDE INJ 10 MG/ML VIAL 2 ML 20 MG IVP (17:33)
[2024-06-27 17:34] VITALS: BP 153/99; PULSE 75; RESP 16; TEMP 36.7; O2SAT 96
[2024-06-27 19:27] VITALS: BP 175/102; PULSE 81; RESP 17; O2SAT 94
[2024-06-27 20:38] VITALS: PULSE 73; RESP 16; TEMP 37.1
== END 2024-06-27 20:44 | disposition home or self-care (01) ==
PROVIDERS: Physician Assistant; Emergency Provider Emergency Medicine; PCP Internal Medicine
DX: I11.0 Hypertensive heart disease with heart failure (principal); I50.9 Heart failure, unspecified; R60.0 Localized edema; I44.0 Atrioventricular block, first degree; I45.10 Unspecified right bundle-branch block; I25.10 Atherosclerotic heart disease of native coronary artery without angina pectoris; E78.00 Pure hypercholesterolemia, unspecified; I25.2 Old myocardial infarction; Z95.5 Presence of coronary angioplasty implant and graft
CPT/HCPCS: 36415; 71046; 80053; 83880; 84484; 85025; 93005; 93970; 96374; 99284; J1940

== ENCOUNTER 2024-08-02 13:25 | Emergency (ER) | payer MEDICARE, BC, SELFPAY ==
[2024-08-02 13:25] VITALS: BMI 27.3
--- NOTE | 2024-08-02 13:31 | EKG_ITS ---
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
--- NOTE | 2024-08-02 14:09 | XR_ITS ---
Examination: AP chest single view TECHNIQUE: Sitting AP chest single view Exam date and time: August 02, 2024 1422 hours Comparison June 27, 2024 INDICATIONS: Shortness of breath today. FINDINGS: Mild heart failure Mild enlargement cardiac contour Prominent vascular congestion Consider early superimposed pneumonia at the lung bases Elevation right hemidiaphragm IMPRESSION: Mild heart failure Suspicious for superimposed pneumonia at the lung bases
--- NOTE | 2024-08-02 14:09 | PD.EDRME ---
Rapid Medical Screening Exam RME Arrival date/time: 08/02/24 13:25 88-year-old male presents to the emergency department today complaints of shortness of breath Chief Complaint: Weakness
[2024-08-02 14:15] VITALS: BP 153/102; PULSE 86; RESP 18; TEMP 36.6; O2SAT 100
--- NOTE | 2024-08-02 14:38 | PC.NURSE ---
PTS DAUGHTER REPORTS THEY HAVE BEEN IN AND OUT OF ED PAST 3 MONTHS FOR SAME COMPLAINT, THE WEAKNESS AND B/L LEG SWELLING, TOLD HE HAS CONGESTIVE HF. PER DAUGHTER HIS SCROTUM IS SWOLLEN TOO. PER DAUGHTER HE SEEMS TO BE HALLUCINATING WHEN HE WAS IN THE LOBBY SEEING PEOPLE. DENIES ANY NEW MEDS. PTS BP ELEVATED ALL OTHER VSS ON TELE. DAUGHTER AT BEDSIDE ATTENTIVE TO PT. CALL [facility]SON IN REACH.
[2024-08-02 14:43] LABS: Basophils % (Auto) 0 % (0-2.5); Eosinophils # (Auto) 0.1 Thou/mm3 (0.0-0.5); Eosinophils % (Auto) 1 % (0-10); Hematocrit 39.2 % (41.0-53.0); Hemoglobin 11.8 g/dL (13.5-16.0); Immature Granulocytes % (Auto) 0 % (0-0); Immature Granulocytes Auto 0.02 Thou/mm3 (0.00-0.00); Lymphocytes # (Auto) 0.6 Thou/mm3 (1.0-4.8); Lymphocytes % (Auto) 9 % (10-50); Mean Corpuscular HGB Conc 30.1 g/dl (31.0-37.0); Mean Corpuscular Hemoglobin 25.2 pg (25.0-35.0); Mean Corpuscular Volume 84 fL (80-100); Monocytes # (Auto) 0.7 Thou/mm3 (0.0-0.8); Monocytes % (Auto) 11 % (0-12); Neutrophils # (Auto) 5.1 Thou/mm3 (1.8-7.7); Neutrophils % (Auto) 79 % (37-80); Nucleated Red Blood Cell % 0 /100 WBC (0); Platelet Count 88 Thou/mm3 (140-440); RDW Standard Deviation 56.9 fL (35.1-43.9); Red Blood Count 4.69 Miln/mm3 (4.50-5.90); White Blood Count 6.4 Thou/mm3 (3.8-10.6)
[2024-08-02 14:50] LABS: INR 1.2 (0.9-1.3); Partial Thromboplastin Time 23.3 Seconds (22.0-36.0); Prothrombin Time 13.3 Seconds (9.0-12.2)
[2024-08-02 15:35] VITALS: BP 136/87; PULSE 85; RESP 19; TEMP 36.5; O2SAT 95
[2024-08-02 15:37] LABS: Alanine Aminotransferase 25 U/L (10-49); Albumin, Serum 3.5 gm/dL (3.4-4.8); Alkaline Phosphatase 134 U/L (46-116); Anion Gap 8 (7-16); Aspartate Amino Transferase 37 U/L (0-34); B-Type Natriuretic Peptide 1494 pg/mL (0-100); BUN/Creatinine Ratio 18 Ratio (12-20); Bilirubin,Total 0.9 mg/dL (0.3-1.2); Blood Urea Nitrogen 22 mg/dL (9-23); Calcium 9.2 mg/dL (8.3-10.6); Calcium (Corrected) 9.6 mg/dL (8.5-10.1); Carbon Dioxide 35.7 mMol/L (20.0-31.0); Chloride 97 mMol/L (98-107); Creatinine (Component) 1.2 mg/dL (0.6-1.3); Globulin 3.5 gm/dL (2.3-3.5); Glucose 301 mg/dL (74-106); Magnesium 2.1 mg/dL (1.6-2.6); Osmolality,Calculated 295 (275-295); Potassium 4.4 mMol/L (3.4-5.1); Sodium 141 mMol/L (136-145); eGFR 58 See Note
[2024-08-02 15:40] LABS: Troponin I 0.064 ng/mL (0.0-0.045)
--- NOTE | 2024-08-02 15:50 | PD.EDWEAK ---
ED Weakness RME/HPI General Chief complaint: Weakness Stated complaint: WEAKNESS AND SWELLING Time Seen by Provider: 08/02/24 15:39 Arrival date/time: 08/02/24 13:25 RME / HPI RME / HPI Narrative: 08/02/24 13:25 88-year-old male presents to the emergency department today complaints of shortness of breath DR. RAMIRES MAIN ED EVALUATION: Related Data Home Medications ?Medication ?Instructions ?Recorded ?Confirmed lovastatin 40 mg tablet 40 mg PO HS #0 tabs 04/02/16 10/29/23 mirabegron 50 mg tablet,extended 50 mg PO QDAY 08/27/17 10/29/23 release 24 hr (Myrbetriq) montelukast 10 mg tablet 10 mg PO QDAY 09/17/18 10/29/23 donepezil 5 mg tablet 5 mg PO Q12HR 01/14/22 10/29/23 ferrous sulfate 325 mg (65 mg 325 mg PO QDAY 01/14/22 10/29/23 iron) tablet (FeroSul) losartan 25 mg tablet 25 mg 1XD 06/09/23 10/29/23 acetaminophen 650 mg tablet 650 mg PO Q4H PRN Pain or Fever 07/27/23 10/29/23 bisacodyl 10 mg rectal suppository 10 mg UT QDAY PRN Constipation 07/27/23 10/29/23 (Dulcolax (bisacodyl)) Previous Rx's ?Medication ?Instructions ?Recorded ascorbic acid (vitamin C) 250 mg 500 mg (2 x 250 mg) PO BID #60 tabs 07/31/23 tablet (Vitamin C) zinc sulfate 50 mg zinc (220 mg) 220 mg (4.4 x 50 mg zinc (220 mg)) 07/31/23 capsule PO QDAY #30 caps lancets 30 gauge and blood glucose #50 ea 08/08/23 strips combo pack pen needle, diabetic 32 gauge x #100 ea 08/08/2307/23 (Novofine 32) aspirin 81 mg tablet,delayed 81 mg PO QDAY #30 tabs 11/01/23 release flash glucose scanning reader #1 ea 11/01/23 (FreeStyle Ector 2 [place]) flash glucose sensor (FreeStyle #1 ea 11/01/23 Ector 2 Sensor kit) insulin detemir U-100 100 unit/mL 15 unit (0.15 mL) subcut HS #10 mL 11/01/23 subcutaneous solution (Levemir U-100 Insulin) levothyroxine 125 mcg capsule 125 mcg PO QDAY #30 caps 11/01/23 nitrofurantoin 100 mg PO BID #14 caps 11/01/23 monohydrate/macrocrystals 100 mg capsule pen needle, diabetic 32 gauge x #100 ea 11/01/23/ (Novofine 32) insulin lispro 100 unit/mL 1 sliding scale dose subcut .TIDAC 11/02/23 subcutaneous solution #10 mL furosemide 20 mg tablet (Lasix) 20 mg PO QAM #3 tabs 06/01/24 furosemide 20 mg tablet (Lasix) 20 mg PO QAM #10 tabs 06/27/24 Allergies Allergy/AdvReac Type Severity Reaction Status Date / Time No Known Allergies Allergy Verified 08/02/24 13:31 Course Orders Category Date Time Status Disaster Or Damage Control Specialist NOW Care 08/02/24 14:09 Active EKG (ED ONLY) *Do not use* NOW Care 08/02/24 13:31 Completed EKG (ED Only) Stat Exams 08/02/24 13:31 Draft US scrotum Stat Exams 08/02/24 15:53 Ordered US venous doppler LE BI Stat Exams 08/02/24 15:53 Ordered XR chest 1V Stat Exams 08/02/24 14:09 Completed B-Type Natriuretic Peptide Stat Lab 08/02/24 14:19 Completed CBC Stat Lab 08/02/24 14:19 Completed Comprehensive Metabolic Panel Stat Lab 08/02/24 14:19 Completed Magnesium Stat Lab 08/02/24 14:19 Completed Partial Thromboplastin Time Stat Lab 08/02/24 14:19 Completed Prothrombin Time with INR Stat Lab 08/02/24 14:19 Completed Troponin I Stat Lab 08/02/24 14:19 Completed UA, C/S IF [Urinalysis, C/S if Indicated] Stat Lab 08/02/24 15:29 Completed Urine Culture Stat Lab 08/02/24 15:29 Received Furosemide [Lasix] Med 08/02/24 16:05 Discontinued 40 mg PO X1 ONE O2 [Oxygen Delivery] NOW RT 08/02/24 13:31 Active Vital Signs Vital signs: Vital Signs Temperature 97.8 F 08/02/24 14:15 Pulse Rate 86 08/02/24 14:15 Respiratory Rate 18 08/02/24 14:15 Blood Pressure 153/102 H 08/02/24 14:15 Pulse Oximetry (%) 100 08/02/24 14:15 Oxygen Delivery Method Nasal Cannula 08/02/24 14:15 Oxygen Flow Rate 3 08/02/24 14:15 Weakness MDM Narrative MDM Narrative:: I, Marie Ambrosio am scribing for and in the presence of Dr. Ramires. Patient data External records reviewed:: [facility] previous records (Reviewed last ED visit dated 06/27/24, discharged with the following: Bilateral edema of lower extremity.) Medications / Prescriptions Medication administrations:: Medication Administration History Discontinued Medications Furosemide (Furosemide 40 Mg Tablet) 40 mg PO X1 ONE Stop: 08/02/24 16:06 Discharge Plan Prescriptions/Referrals Prescriptions/Med Rec: No Action lovastatin 40 MG tablet 40 mg PO HS Qty: 0 donepezil 5 mg tablet 5 mg PO Q12HR Patient Comments: TAKE 1 TABLET BY MOUTH AT BEDTIME ferrous sulfate [FeroSul] 325 mg (65 mg iron) tablet 325 mg PO QDAY Patient Comments: TAKE 1 TABLET BY MOUTH EVERY DAY Myrbetriq 50 mg Tablet Extended Release 24 Hr 50 mg PO QDAY montelukast 10 mg Tablet 10 mg PO QDAY acetaminophen 650 mg Tablet 650 mg PO Q4H PRN (Reason: Pain or Fever) bisacodyl [Dulcolax (bisacodyl)] 10 mg Suppository 10 mg UT QDAY PRN (Reason: Constipation) Rx Instructions: If MOM ineffective or no BM for 8 hours ascorbic acid (vitamin C) [Vitamin C] 250 mg Tablet 500 mg PO BID Qty: 60 0RF zinc sulfate 50 mg zinc (220 mg) Capsule 220 mg PO QDAY Qty: 30 0RF (DME) pen needle, diabetic [Novofine 32] 32 gauge x 1/4 needle See Rx Instructions .Route Qty: 100 2RF Rx Instructions: As directed (DME) lancets-blood glucose strips 30 gauge combo pack See Rx Instructions .Route Qty: 50 2RF Rx Instructions: As directed losartan 25 mg tablet 25 mg 1XD Patient Comments: TAKE 3 TABLET BY MOUTH EVERY DAY AT NOON nitrofurantoin monohyd/m-cryst 100 mg Capsule 100 mg PO BID Qty: 14 0RF aspirin 81 mg Tablet,Delayed Release (Dr/Ec) 81 mg PO QDAY Qty: 30 0RF (DME) FreeStyle Ector 2 [place] Misc See Rx Instructions .Route Qty: 1 0RF Rx Instructions: As directed (DME) FreeStyle [place] 2 Sensor Kit See Rx Instructions .Route Qty: 1 0RF Rx Instructions: As directed levothyroxine 125 mcg capsule 125 mcg PO QDAY Qty: 30 0RF Rx Instructions: take 1/2 capsule Levemir U-100 Insulin 100 unit/mL solution 15 unit subcut HS Qty: 10 1RF (DME) pen needle, diabetic [Novofine 32] 32 gauge x 1/4 needle See Rx Instructions .Route Qty: 100 0RF Rx Instructions: As directed insulin lispro 100 unit/mL solution 1 sliding scale dose subcut .TIDAC MDD 30 units Qty: 10 0RF Rx Instructions: Per patient's sliding scale furosemide [Lasix] 20 mg tablet 20 mg PO QAM Qty: 3 0RF furosemide [Lasix] 20 mg tablet 20 mg PO QAM Qty: 10 0RF Patient/Caregiver Discharge Instructions Print Language: American
--- NOTE | 2024-08-02 15:53 | XR_ITS ---
Examination: Venous duplex lower extremity sonogram, bilateral. Date and time of exam: August 02, 2024 1643 hours INDICATIONS: Bilateral leg pain and swelling beginning 3 months ago Technique: Multiple sonographic images of the deep venous system have been obtained. B-mode/2-D grayscale imaging of vascular structures and Doppler spectral analysis (waveforms) and color performed Both legs are examined. Findings: Deep venous systems do not demonstrate abnormal echogenicity. All visualized deep veins exhibit compressibility. All visualized deep veins exhibit augmentation. Impression: Negative for deep vein thrombosis
--- NOTE | 2024-08-02 15:53 | XR_ITS ---
Examination: Testicular sonography complete TECHNIQUE: Grayscale sonographic images testes, assessment arterial inflow venous outflow, Doppler spectral analysis carful analysis Exam date and time: August 02, 2024 1618 hours INDICATIONS: Testicular swelling beginning 3 months ago with intermittent pain FINDINGS: Right testis 3.1 x 2.0 x 2.3 cm Epididymis 11 mm Arterial flow but reduced No testicular mass Scrotal wall thickening 15 mm Left testis 2.9 x 2.0 x 2.1 cm Epididymis 11 mm Appendix testis 5 mm Arterial flow, but reduced No testicular mass Scrotal wall edema 11 mm IMPRESSION: Arterial flow to the testes bilaterally, reduced, which may relate to the patient's scrotal edema No testicular mass Bilateral scrotal wall thickening/edema
[2024-08-02 16:21] LABS: Collection Type, Urine Clean Catch
[2024-08-02 16:30] LABS: Bilirubin,Urine Negative (Negative); Blood,Urine 1+ (Negative); Color,Urine Yellow (Lt Yel-Yel); Glucose, Urine 3+ (Negative); Hyaline Casts,Urine < 1 /hpf (0-1); Ketones,Urine Negative (Negative); Leukocyte Esterase,Urine Positive (Negative); Nitrite,Urine Negative (Negative); Protein,Urine 1+ (Neg - Trace); RBC,Urine 14 /hpf (0-3); Specific Gravity,Urine 1.019 (1.001-1.035); Squamous Epithelial Cell,Urine < 1 /hpf (0-5); Urobilinogen,Urine Negative mg/dL (0.0-1.0); WBC,Urine 124 /hpf (0-5)
[2024-08-02 16:35] LABS: Clarity,Urine Hazy (Clear/Hazy); Culture Indicated,Urine Yes
--- NOTE | 2024-08-02 17:11 | PD.EDSOB ---
ED SOB =RME/HPI General Chief Complaint: Weakness Stated Complaint: WEAKNESS AND SWELLING Time Seen by Provider: 08/02/24 15:39 Arrival date/time: 08/02/24 13:25 RME / HPI RME / HPI Narrative: 08/02/24 13:25 88-year-old male presents to the emergency department today complaints of shortness of breath DR. RAMIRES MAIN ED EVALUATION: 88 year old male with past medical history significant for CHF presents to the Emergency Department with complaint of shortness of breath, onset 1 week worse today. Symptoms are moderate. Associated symptoms include dyspnea on exertion, generalized weakness, scrotal swelling and bilateral leg swelling. Patient on home oxygen, 3 L/min via a nasal cannula. Related Data Home Medications ?Medication ?Instructions ?Recorded ?Confirmed lovastatin 40 mg tablet 40 mg PO HS #0 tabs 04/02/16 10/29/23 mirabegron 50 mg tablet,extended 50 mg PO QDAY 08/27/17 10/29/23 release 24 hr (Myrbetriq) montelukast 10 mg tablet 10 mg PO QDAY 09/17/18 10/29/23 donepezil 5 mg tablet 5 mg PO Q12HR 01/14/22 10/29/23 ferrous sulfate 325 mg (65 mg 325 mg PO QDAY 01/14/22 10/29/23 iron) tablet (FeroSul) losartan 25 mg tablet 25 mg 1XD 06/09/23 10/29/23 acetaminophen 650 mg tablet 650 mg PO Q4H PRN Pain or Fever 07/27/23 10/29/23 bisacodyl 10 mg rectal suppository 10 mg SC QDAY PRN Constipation 07/27/23 10/29/23 (Dulcolax (bisacodyl)) Previous Rx's ?Medication ?Instructions ?Recorded ascorbic acid (vitamin C) 250 mg 500 mg (2 x 250 mg) PO BID #60 tabs 07/31/23 tablet (Vitamin C) zinc sulfate 50 mg zinc (220 mg) 220 mg (4.4 x 50 mg zinc (220 mg)) 07/31/23 capsule PO QDAY #30 caps lancets 30 gauge and blood glucose #50 ea 08/08/23 strips combo pack pen needle, diabetic 32 gauge x #100 ea 08/08/2307/23 (Novofine 32) aspirin 81 mg tablet,delayed 81 mg PO QDAY #30 tabs 11/01/23 release flash glucose scanning reader #1 ea 11/01/23 (FreeStyle Ector 2 Walker) flash glucose sensor (FreeStyle #1 ea 11/01/23 Ector 2 Sensor kit) insulin detemir U-100 100 unit/mL 15 unit (0.15 mL) subcut HS #10 mL 11/01/23 subcutaneous solution (Levemir U-100 Insulin) levothyroxine 125 mcg capsule 125 mcg PO QDAY #30 caps 11/01/23 nitrofurantoin 100 mg PO BID #14 caps 11/01/23 monohydrate/macrocrystals 100 mg capsule pen needle, diabetic 32 gauge x #100 ea 11/01/2307/23 (Novofine 32) insulin lispro 100 unit/mL 1 sliding scale dose subcut .TIDAC 11/02/23 subcutaneous solution #10 mL furosemide 20 mg tablet (Lasix) 20 mg PO QAM #3 tabs 06/01/24 furosemide 20 mg tablet (Lasix) 20 mg PO QAM #10 tabs 06/27/24 furosemide 40 mg tablet (Lasix) 40 mg PO BID #30 tabs 08/02/24 Allergies Allergy/AdvReac Type Severity Reaction Status Date / Time No Known Allergies Allergy Verified 08/02/24 13:31 Review of Systems Review of Systems Systems Reviewed: All systems reviewed, normal except as documented Narrative Review of Systems: GEN: No fever, no chills, no weight loss, + bilateral leg swelling, + scrotal swelling EYES: No discharge, no visual changes, no pain HEENT: No ear pain, no congestion, no sore throat PULM: + shortness of breath, no cough, no congestion CV: No chest pain, + dyspnea on exertion, no palpitations GI: No nausea, no vomiting, no diarrhea, no pain, no constipation : No frequency, no urgency and no dysuria MUSC/SKEL: No joint pain, no back pain SKIN: No rash PSYCH: No hallucinations, no depression HEME/LYMPH: No easy bleeding or bruising tendencies NEURO: + generalized weakness, no headache Past Medical History Past Medical History CARDIAC: Positive Cardiac Disorders, Myocardial Infarction, Coronary Artery Disease, Hypercholesterolemia and Hypertension RESPIRATORY: Positive Asthma, Pneumonia and Sleep Apnea GASTROINTESTINAL: Positive Gastrointestinal Disorders, Diverticulosis and Gastroesophageal Reflux Disease GENITOURINARY: Positive Genitourinary Disorders, Kidney Stones and Prostate Cancer MUSCULOSKELETAL: Positive Musculoskeletal Disorders, Arthritis and Fractures ENT: Positive Cataracts ENDOCRINE: Positive Endocrine Disorders, Diabetes Mellitus Type 2 and Hypothyroidism PSYCHO/SOCIAL: Positive Depression OTHER HISTORY: Positive Hospitalization, Blood Transfusions, Radiation Therapy, Chicken Pox, Measles, Mumps, Cancer and Prostate Cancer Family History FAMILY HISTORY: Positive Family Cardiac Disorders, Family Cancer and Family Anesthesia Reaction Surgical History SURGICAL: Positive Cardiac Surgery, Coronary Stent, Ear Surgery and Joint Replacement; Negative Endocrine Surgery, Abdominal Surgery, Nephrectomy, Neurologic Surgery or Vasectomy Social History SMOKING STATUS: Never smoker SUBSTANCE USE: does not use ED Exam Narrative Physical exam: GENERAL APPEARANCE: alert and oriented x 4, well-developed, well-nourished VITALS: All vitals were reviewed and the pulse ox is 95% on room air, which is normal according to my interpretation. HEENT: Normocephalic, atraumatic; pupils equal, round, reactive to light; EOMI; mucous membranes pink, moist; oropharynx clear NECK: Supple LUNGS: CTABL; no wheezes, no rales, no rhonchi HEART: Regular rate, regular rhythm; normal S1, S2; no murmurs ABDOMEN: non distended; normal BS; soft, no tenderness, no guarding, no rebound; no masses, no organomegaly, no hernia BACK: no CVA tenderness EXTREMITIES: atraumatic; + bilateral leg edema, + scrotal swelling NEUROLOGIC: awake; alert and oriented x4; cranial nerves II-XII grossly intact; no focal sensory or motor deficits PSYCHIATRIC: appropriate mood and affect SKIN: warm, dry, normal color; no rashes Course Quality Measures none Orders Category Date Time 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 08/02/24 14:09 Completed EKG (ED ONLY) *Do not use* NOW Care 08/02/24 13:31 Completed EKG (ED Only) Stat Exams 08/02/24 13:31 Draft US scrotum Stat Exams 08/02/24 15:53 Completed US venous doppler LE BI Stat Exams 08/02/24 15:53 Completed XR chest 1V Stat Exams 08/02/24 14:09 Completed B-Type Natriuretic Peptide Stat Lab 08/02/24 14:19 Completed CBC Stat Lab 08/02/24 14:19 Completed Comprehensive Metabolic Panel Stat Lab 08/02/24 14:19 Completed Magnesium Stat Lab 08/02/24 14:19 Completed Partial Thromboplastin Time Stat Lab 08/02/24 14:19 Completed Prothrombin Time with INR Stat Lab 08/02/24 14:19 Completed Troponin I Stat Lab 08/02/24 14:19 Completed UA, C/S IF [Urinalysis, C/S if Indicated] Stat Lab 08/02/24 15:29 Completed Urine Culture Stat Lab 08/02/24 15:29 Completed Furosemide [Lasix] Med 08/02/24 16:05 Discontinued 40 mg PO X1 ONE O2 [Oxygen Delivery] NOW RT 08/02/24 13:31 Completed Reevaluation(s) Reevaluation #1: Patient remains clinically stable throughout the emergency department visit. Re-assessment at the time of disposition demonstrates that the patient is in no acute distress. We reviewed all the results, analysis, and treatment plans. Patient is amenable to discharge. Strict return precautions were outlined. Patient was discharged in stable condition. Time: 18:30 Vital Signs Vital signs: Vital Signs Temperature 97.8 F 08/02/24 14:15 Pulse Rate 86 08/02/24 14:15 Respiratory Rate 18 08/02/24 14:15 Blood Pressure 153/102 H 08/02/24 14:15 Pulse Oximetry (%) 100 08/02/24 14:15 Oxygen Delivery Method Nasal Cannula 08/02/24 14:15 Oxygen Flow Rate 3 08/02/24 14:15 Shortness of Breath / Dyspnea MDM Narrative MDM Narrative:: IMarie am scribing for and in the presence of Dr. Ramires. Patient data External records reviewed:: [facility] previous records (Reviewed last ED visit dated 06/27/24, discharged with the following: Bilateral edema of lower extremity.) Clinical information provided by:: patient and family Social determinants that could affect healthcare access:: none Patient has the following chronic illnesses:: CHF How is presenting disease/condition affected by chronic disease/condition?: exacerbated by Evaluation data The following diagnostics were reviewed and interpreted by me:: lab results, radiology exam(s) and EKG tracing(s) (sinus rhythm, rate 88, right bundle branch block,) Lab and/or radiology exams considered but not ordered:: none Interpretation Summary: Procedure(s): XR chest 1V Accession Number(s): [id number] cc: Cooper SMITH),Paulino ROJO; Barron Martinez MD~ Examination: AP chest single view TECHNIQUE: Sitting AP chest single view Exam date and time: August 02, 2024 1422 hours Comparison June 27, 2024 INDICATIONS: Shortness of breath today. FINDINGS: Mild heart failure Mild enlargement cardiac contour Prominent vascular congestion Consider early superimposed pneumonia at the lung bases Elevation right hemidiaphragm IMPRESSION: Mild heart failure Suspicious for superimposed pneumonia at the lung bases Dictated By: Barron Martinez MD Procedure(s): US scrotum Accession Number(s): [id number] cc: Barron Martinez MD; Jossy Ramires MD~ Examination: Testicular sonography complete TECHNIQUE: Grayscale sonographic images testes, assessment arterial inflow venous outflow, Doppler spectral analysis carful analysis Exam date and time: August 02, 2024 1618 hours INDICATIONS: Testicular swelling beginning 3 months ago with intermittent pain FINDINGS: Right testis 3.1 x 2.0 x 2.3 cm Epididymis 11 mm Arterial flow but reduced No testicular mass Scrotal wall thickening 15 mm Left testis 2.9 x 2.0 x 2.1 cm Epididymis 11 mm Appendix testis 5 mm Arterial flow, but reduced No testicular mass Scrotal wall edema 11 mm IMPRESSION: Arterial flow to the testes bilaterally, reduced, which may relate to the patient's scrotal edema No testicular mass Bilateral scrotal wall thickening/edema Dictated By: Barron Martinez MD Procedure(s): US venous doppler ROME DOMINGUEZ Accession Number(s): [id number] cc: Barron Martinez MD; Jossy Ramires MD~ Examination: Venous duplex lower extremity sonogram, bilateral. Date and time of exam: August 02, 2024 1643 hours INDICATIONS: Bilateral leg pain and swelling beginning 3 months ago Technique: Multiple sonographic images of the deep venous system have been obtained. B-mode/2-D grayscale imaging of vascular structures and Doppler spectral analysis (waveforms) and color performed Both legs are examined. Findings: Deep venous systems do not demonstrate abnormal echogenicity. All visualized deep veins exhibit compressibility. All visualized deep veins exhibit augmentation. Impression: Negative for deep vein thrombosis Dictated By: Barron Martinez MD Medications / Prescriptions Medications or Prescriptions considered but not ordered:: none Medication administrations:: Medication Administration History Discontinued Medications Furosemide (Furosemide 40 Mg Tablet) 40 mg PO X1 ONE Stop: 08/02/24 16:06 Last Admin: 08/02/24 17:20 Dose: 40 mg Documented By: TM see above Consultations Consultation(s) initiated? (list below): No Diagnosis Shortness of Breath Differential Diagnosis: acute exacerbation of chronic obstructive airways disease, congestive heart failure and pulmonary embolism Most likely diagnosis given after review of the tests above:: CHF Scrotal edema Leg edema Admission Indicated Admission indicated?: not indicated Admission Request Was there a request for admission?: No Disposition Plan Disposition Plan: Discharge Discharge Attestation Discharge Attestation: The patient and all family members were given an opportunity to ask questions and understood the discharge instructions. Discharge instructions specifically effects, indications for sooner follow up or return to the emergency department, and the expected course of current diagnosis. Patient condition: Stable Discharge Plan Plan Patient Disposition: HOME (Self Care) Patient condition on transfer: Stable Prescriptions/Referrals Prescriptions/Med Rec: New furosemide [Lasix] 40 mg tablet 40 mg PO BID Qty: 30 0RF No Action lovastatin 40 MG tablet 40 mg PO HS Qty: 0 donepezil 5 mg tablet 5 mg PO Q12HR Patient Comments: TAKE 1 TABLET BY MOUTH AT BEDTIME ferrous sulfate [FeroSul] 325 mg (65 mg iron) tablet 325 mg PO QDAY Patient Comments: TAKE 1 TABLET BY MOUTH EVERY DAY Myrbetriq 50 mg Tablet Extended Release 24 Hr 50 mg PO QDAY montelukast 10 mg Tablet 10 mg PO QDAY acetaminophen 650 mg Tablet 650 mg PO Q4H PRN (Reason: Pain or Fever) bisacodyl [Dulcolax (bisacodyl)] 10 mg Suppository 10 mg SC QDAY PRN (Reason: Constipation) Rx Instructions: If MOM ineffective or no BM for 8 hours ascorbic acid (vitamin C) [Vitamin C] 250 mg Tablet 500 mg PO BID Qty: 60 0RF zinc sulfate 50 mg zinc (220 mg) Capsule 220 mg PO QDAY Qty: 30 0RF (DME) pen needle, diabetic [Novofine 32] 32 gauge x 1/4 needle See Rx Instructions .Route Qty: 100 2RF Rx Instructions: As directed (DME) lancets-blood glucose strips 30 gauge combo pack See Rx Instructions .Route Qty: 50 2RF Rx Instructions: As directed losartan 25 mg tablet 25 mg 1XD Patient Comments: TAKE 3 TABLET BY MOUTH EVERY DAY AT NOON nitrofurantoin monohyd/m-cryst 100 mg Capsule 100 mg PO BID Qty: 14 0RF aspirin 81 mg Tablet,Delayed Release (Dr/Ec) 81 mg PO QDAY Qty: 30 0RF (DME) FreeStyle Ector 2 Walker Misc See Rx Instructions .Route Qty: 1 0RF Rx Instructions: As directed (DME) FreeStyle Ector 2 Sensor Kit See Rx Instructions .Route Qty: 1 0RF Rx Instructions: As directed levothyroxine 125 mcg capsule 125 mcg PO QDAY Qty: 30 0RF Rx Instructions: take 1/2 capsule Levemir U-100 Insulin 100 unit/mL solution 15 unit subcut HS Qty: 10 1RF (DME) pen needle, diabetic [Novofine 32] 32 gauge x 1/4 needle See Rx Instructions .Route Qty: 100 0RF Rx Instructions: As directed insulin lispro 100 unit/mL solution 1 sliding scale dose subcut .TIDAC MDD 30 units Qty: 10 0RF Rx Instructions: Per patient's sliding scale furosemide [Lasix] 20 mg tablet 20 mg PO QAM Qty: 3 0RF furosemide [Lasix] 20 mg tablet 20 mg PO QAM Qty: 10 0RF Referrals: Gibson Gutierrez MD [Physician] - 08/05/24 Problem List Clinical Impression: CHF (congestive heart failure), Scrotal edema, Leg edema Patient/Caregiver Discharge Instructions Education Materials: ED CHF Left Side Additional Instructions: Increase Lasix (furosemide) to 40mg twice daily. Follow up with Dr. Gutierrez this 08/05/2024. Call office for appointment time. Print Language: [place] Stand Alone Forms: [place] Award Info., Patient Portal Info Letter
[2024-08-02 17:20] VITALS: BP 161/98; PULSE 81
[2024-08-02] MEDS: Furosemide 40 MG TABLET PO (17:20)
[2024-08-02 18:20] VITALS: BP 145/96; PULSE 79; RESP 19; TEMP 36.9; O2SAT 97
== END 2024-08-02 19:19 | disposition home or self-care (01) ==
LOC: SERX 18:51
PROVIDERS: Nurse Practitioner Primary Care; Emergency Provider Emergency Medicine; PCP Internal Medicine
DX: I50.9 Heart failure, unspecified (principal); N50.89 Other specified disorders of the male genital organs; R60.0 Localized edema
CPT/HCPCS: 36415; 71045; 76870; 80053; 81001; 83735; 83880; 84484; 85025; 85610; 85730; 87086; 93005; 93970; 99284; A9270

== ENCOUNTER 2024-09-08 15:26 | Inpatient (IN) | payer MEDICARE, BC, SELFPAY ==
[2024-09-08] VITALS (46 sets, daily range): BP systolic 75–139; BP diastolic 48–100; PULSE 66–94; RESP 9–100; TEMP 36.2–37; O2SAT 90–100; BMI 21.9
--- NOTE | 2024-09-08 15:52 | EDNOTE_ITS ---
Altered Mental Status RME/HPI General Chief Complaint: Altered Mental Status Stated Complaint: AMS Time Seen by Provider: 09/08/24 15:59 Arrival date/time: 09/08/24 15:26 RME / HPI RME / HPI narrative: Patient is a 88-year-old male with past medical history of HFpEF (10/2023 50- 55%), hypertension, type 2 diabetes mellitus, hyperlipidemia, CAD s/p stents, hypothyroidism, prostate cancer s/p radiation therapy, and dementia who presented from [facility] due to altered mental status beginning this morning when staff went to check on the patient. They noticed that he was more somnolent than usual. Patient has a chronic Alvarez catheter, it is unknown when it was last changed, but there is purulence in the tubing. On evaluation patient when asked denies any current complaints, denies pain, GCS is 13, currently arousable to voice. Unable to give much history. Patient is a DNR with selective treatment OK per POLST form. Related Data Home Medications ?Medication ?Instructions ?Recorded ?Confirmed mirabegron 50 mg tablet,extended 50 mg PO QDAY 8 09/09/24 release 24 hr (Myrbetriq) bisacodyl 10 mg rectal suppository 10 mg AK QDAY PRN C onstipation 07/27/23 09/09/24 (Dulcolax (bisacodyl)) amino acids-protein hydrolysate 15 30 ea PO QDAY WOUND HEALING 09/09/24 09/09/24 gram-101 kcal/30 mL oral liquid carvedilol 3.125 mg tablet 3.125 mg PO BID 09/09/24 insulin regular human 100 unit/mL 1 sliding scale dose subcut 09/09/24 09/09/24 injection solution (Humulin R USEASDIRECTD Regular U-100 Insulin) levothyroxine 100 mcg tablet 100 mcg PO QDAY 09/09/24 09/09/24 lisinopril 2.5 mg tablet 2.5 mg PO QDAY HTN- HOLD FOR SBP< 09/09/24 09/09/24 110 OR DBP <60 magnesium hydroxide 400 mg/5 mL 30 ml PO .EVERY 72 HRS PRN 09/09/24 09/09/24 oral suspension (Dulcolax constipation (magnesium hydroxide)) multivitamin (Daily Multi-Vitamin 1 tab PO QAM 2 5 09/09/24 tablet) nystatin 100,000 unit/gram topical 1 applic topical BI D 09/09/24 09/09/24 powder tramadol 50 mg tablet 50 mg PO Q6H PRN pain 09/09/24 Previous Rx's ?Medication ?Instructions ?Recorded zinc sulfate 50 mg zinc (220 mg) 220 mg (4.4 x 50 mg z inc (220 mg)) 07/31/23 capsule PO QDAY #30 caps lancets 30 gauge and blood glucose #50 ea 08/08/23 strips combo pack pen needle, diabetic 32 gauge x #100 ea 08/08/2307/23 (Novofine 32) flash glucose scanning reader #1 ea 11/01/23 (FreeStyle Ector 2 [place]) flash glucose sensor (FreeStyle #1 ea 11/01/23 Ector 2 Sensor kit) pen needle, diabetic 32 gauge x #100 ea 11/01/2307/23 (Novofine 32) ferrous sulfate 325 mg (65 mg 325 mg PO EVERYOTHERDAY #30 tabs 09/11/24 iron) tablet (FeroSul) furosemide 40 mg tablet (Lasix) 40 mg PO DAILY #30 tab s 09/11/24 insulin degludec 200 unit/mL (3 20 unit (0.1 mL) subcu t QPM 1 09/11/24 mL) subcutaneous pen month #3 mL nitrofurantoin macrocrystal 100 mg 100 mg PO BID 7 day s #14 caps 09/11/24 capsule Allergies Allergy/AdvReac Type Severity Reaction Status Date / Time No Known Allergies Allergy Verified 08/02/24 13:31 Review of Systems Review of Systems ROS Unobtainable: unobtainable due to mental status Past Medical History Past Medical History CARDIAC: Positive Cardiac Disorders, Myocardial Infarction, Coronary Artery D isease, Hypercholesterolemia and Hypertension RESPIRATORY: Positive Asthma, Pneumonia and Sleep Apnea GASTROINTESTINAL: Positive Gastrointestinal Disorders, Diverticulosis and Gastroesophageal Reflux Disease GENITOURINARY: Positive Genitourinary Disorders, Kidney Stones and Prostate Cancer MUSCULOSKELETAL: Positive Musculoskeletal Disorders, Arthritis and Fractures ENT: Positive Cataracts ENDOCRINE: Positive Endocrine Disorders, Diabetes Mellitus Type 2 and Hypothyroidism PSYCHO/SOCIAL: Positive Depression OTHER HISTORY: Positive Hospitalization, Blood Transfusions, Radiation Therapy, Chicken Pox, Measles, Mumps, Cancer and Prostate Cancer Family History FAMILY HISTORY: Positive Family Cardiac Disorders, Family Cancer and Family Anesthesia Reaction Surgical History SURGICAL: Positive Cardiac Surgery, Coronary Stent, Ear Surgery and Joint Replacement; Negative Endocrine Surgery, Abdominal Surgery, Nephrectomy, Neurologic Surgery or Vasectomy Social History SMOKING STATUS: Never smoker SUBSTANCE USE: does not use ED Exam Narrative Physical exam: Physical Exam General: Elderly male asleep, arousable to stimuli, in no acute distress. HEENT: Normocephalic, atraumatic, mucous membranes moist. Heart: Regular rate and rhythm, no murmurs. Lungs: Clear to auscultation with no wheezing or crackles. Abdomen: Soft, nondistended, tenderness to palpation suprapubic region, positive bowel sounds. ?No guarding or rebound tenderness. : Inguinal area without erythema, purulence, or discharge. Alvarez bag with purulent mucous in tubing. Neurologic: Alert and oriented x1, no gross neurological deficit, and patient a ble to move all 4 extremities. Following commands. Extremities: No edema. Skin: No rash or ecchymoses. Course Quality Measures Current suspected stage: sepsis Possible source: genitourinary Blood cultures ordered: yes Antibiotic ordered: Yes Pertinent labs: 09/08/24 16:14 Lactic Acid 2.3 H mMol/L (0.4-2.0) Procalcitonin 0.24 ng/ml (0.0-0.49) sepsis Orders Category Date Time Status Steam Conditioner Operator Q4H START 00 Care 09/08/24 15:57 Completed Continuous Pulse Oximetry STAT Care 09/08/24 15:57 Completed EKG (ED ONLY) *Do not use* NOW Care 09/08/24 15:57 Completed Insert IV NOW Care 09/08/24 15:57 Completed NPO STAT Care 09/08/24 15:57 Completed Strict Intake and Output Routine Care 09/08/24 15:[address] head/brain wo con Stat Exams 09/08/24 17:31 Completed CXRP [XR chest 1V portable] Stat Exams 09/08/24 15:57 Completed EKG (ED Only) Stat Exams 09/08/24 15:57 Ordered Blood Culture (Lab) Stat Lab 09/08/24 16:22 Completed CBC Stat Lab 09/08/24 16:14 Completed CMP [Comprehensive Metabolic Panel] Stat Lab 09/08/24 16:14 Completed Lactic Acid [Lactate (Lactic Acid)] Stat Lab 09/08/24 16:14 Completed Procalcitonin Stat Lab 09/08/24 16:14 Completed Urinalysis Stat Lab 09/08/24 16:02 Completed Urine Culture Stat Lab 09/08/24 16:05 Completed Sodium Chloride 0.9% 1000 ml [Ns] 1,000 ml Med 09/08/24 16:54 Discontinued IV 999 mls/hr cefTRIAXone [Rocephin] 1,000 mg Med 09/08/24 16:54 Discontinued SODIUM CHLORIDE 0.9% (Popper) [NS 0.9% (Popper)] 50 ml IV X1 Oxygen Delivery PRN RT 09/08/24 15:57 Completed Vital Signs Vital signs: Vital Signs Temperature 98.6 F 09/08/24 15:42 Pulse Rate 72 09/08/24 15:42 Respiratory Rate 23 H 09/08/24 15:42 Blood Pressure 107/67 09/08/24 15:42 Pulse Oximetry (%) 100 09/08/24 15:42 Oxygen Delivery Method Room Air 09/08/24 15:42 Procedures -ED EKG Interpretation #1: Date of EK09/08/24 Time of EK:55 Rate: 79 Interpretation: Interpreted by me EKG Impression: Normal sinus rhythm, No acute ST-T changes and Bundle branch block (right BBB) Altered Mental Status MDM Narrative MDM Narrative:: Patient presents with increasing lethargy, on examination has suprapubic pain, and there is purulence in the Alvarez catheter tubing. On labs there is a leukocytosis at 22.9, MELO with creatinine 1.7 (baseline 0.8) and electrolyte abnormalities including hyponatremia (124), hyperkalemia (5.4), and hypochloremia (90). Procalcitonin was negative however lactic acid is mildly elevated at 2.3. Patient was given 1 L fluids in the ED and ceftriaxone 1 g. Blood cultures and urine culture are sent. Patient will likely need admission for acute metabolic encephalopathy secondary to UTI. Additional causes of altered mental status may include hyponatremia, uremia, dehydration. Hospitalist team requests CT head to rule out additional causes for altered mental status, ordered pending results. 18:00 Care of the patient was handed off to Dr. Kline, the oncoming ED physician. Will follow result and call for admission to the night team. Patient data External records reviewed:: [facility] previous records Clinical information provided by:: EMS Social determinants that could affect healthcare access:: none Patient has the following chronic illnesses:: As above How is presenting disease/condition affected by chronic disease/condition?: exacerbated by Evaluation data The following diagnostics were reviewed and interpreted by me:: lab results and radiology exam(s) Lab and/or radiology exams considered but not ordered:: Ordered Interpretation Summary: As above Medications / Prescriptions Medications or Prescriptions considered but not ordered:: Given Medication administrations:: Medication Administration History Discontinued Medications Acetaminophen (Acetaminophen 325 Mg Tablet) 650 mg PO Q6H PRN PRN Reason: Fever >101.5 Stop: 10/08/24 19:15 Desmopressin Acetate (Desmopressin Acet Inj 4 Mcg/Ml Vial 10ml) 4 mcg IV X1 ONE Stop: 09/09/24 06:25 Dextrose (Dextrose 50%-Water Inj 50 Ml Syringe) 25 ml IV Q15MIN PRN PRN Reason: BG 50-70 responsive npo pt Stop: 10/08/24 19:18 Dextrose (Dextrose 50%-Water Inj 50 Ml Syringe) 50 ml IV Q15MIN PRN PRN Reason: BG <50 OR BG <70 & pt unresponsive Stop: 10/08/24 19:18 Glucagon (Glucagon Inj 1 Mg Vial) 1 mg IM Q15MIN PRN PRN Reason: BG <70, and no IV access Heparin Sodium (Porcine) (Heparin Sod Inj 5000 Unit/Ml Vial) 5,000 unit SC Q8HR DES Stop: 09/22/24 21:59 Last Admin: 09/08/24 23:07 Dose: Not Given Documented By: KG Non-Admin Reason: Cancelled by Provider Sodium Chloride (Ns) 1,000 mls @ 999 mls/hr IV .Q1H1M ONE Stop: 09/08/24 17:54 Last Infusion: 09/08/24 18:37 Dose: Infused Documented By: Admin: 09/08/24 17:20 Dose: 999 mls/hr Documented By: NAOMIE Ceftriaxone Sodium 1,000 mg/ (Sodium Chloride) 50 mls @ 100 mls/hr IV X1 ONE Stop: 09/08/24 17:23 Last Infusion: 09/08/24 18:37 Dose: Infused Documented By: Admin: 09/08/24 17:20 Dose: 100 mls/hr Documented By: TM Sodium Chloride (Ns) 1,000 mls @ 100 mls/hr IV .Q10H DES Stop: 09/09/24 05:29 Last Admin: 09/08/24 21:03 Dose: 100 mls/hr Documented By: KG Ceftriaxone Sodium 1,000 mg/ (Sodium Chloride) 50 mls @ 100 mls/hr IV QDAY DES Stop: 09/16/24 08:59 Lactated Ringer's (Lactated Ringers) 1,000 mls @ 999 mls/hr IV .Q1H1M ONE Stop: 09/08/24 20:18 Last Infusion: 09/08/24 20:41 Dose: Infused Documented By: Admin: 09/08/24 19:40 Dose: 999 mls/hr Documented By: KG Azithromycin 500 mg/ Sodium (Chloride) 250 mls @ 250 mls/hr IV QDAY@2100 DES Stop: 09/16/24 20:59 Azithromycin 500 mg/ Sodium (Chloride) 250 mls @ 250 mls/hr IV X1 ONE Stop: 09/08/24 20:44 Last Infusion: 09/08/24 20:44 Dose: Infused Documented By: Admin: 09/08/24 19:44 Dose: 250 mls/hr Documented By: KG Norepinephrine/Dextrose (Levophed In D5w 8mg/250ml) 8 mg in 250 mls @ 5.953 mls/hr IV .Q24H PRN; Protocol PRN Reason: PER PROTOCOL Stop: 10/08/24 20:29 Last Titration: 09/09/24 08:40 Dose: 0 mcg/kg/min, 0 mls/hr Documented By: Titration: 09/09/24 08:00 Dose: 0.01 mcg/kg/min, 1.191 mls/hr Documented By: Titration: 09/09/24 07:00 Dose: 0.03 mcg/kg/min, 3.572 mls/hr Documented By: Titration: 09/09/24 03:00 Dose: 0.01 mcg/kg/min, 1.191 mls/hr Documented By: Titration: 09/09/24 02:30 Dose: 0.01 mcg/kg/min, 1.191 mls/hr Documented By: Titration: 09/09/24 02:00 Dose: 0.03 mcg/kg/min, 3.572 mls/hr Documented By: Titration: 09/09/24 01:00 Dose: 0.03 mcg/kg/min, 3.572 mls/hr Documented By: Titration: 09/09/24 00:00 Dose: 0.05 mcg/kg/min, 5.953 mls/hr Documented By: Titration: 09/08/24 22:50 Dose: 0.05 mcg/kg/min, 5.953 mls/hr Documented By: Titration: 09/08/24 22:30 Dose: 0.05 mcg/kg/min, 5.953 mls/hr Documented By: Titration: 09/08/24 22:21 Dose: 0.07 mcg/kg/min, 8.335 mls/hr Documented By: Titration: 09/08/24 22:16 Dose: 0.07 mcg/kg/min, 8.335 mls/hr Documented By: Titration: 09/08/24 22:11 Dose: 0.07 mcg/kg/min, 8.335 mls/hr Documented By: Titration: 09/08/24 22:06 Dose: 0.07 mcg/kg/min, 8.335 mls/hr Documented By: Titration: 09/08/24 22:01 Dose: 0.07 mcg/kg/min, 8.335 mls/hr Documented By: Titration: 09/08/24 21:56 Dose: 0.07 mcg/kg/min, 8.335 mls/hr Documented By: Titration: 09/08/24 21:51 Dose: 0.07 mcg/kg/min, 8.335 mls/hr Documented By: Titration: 09/08/24 21:46 Dose: 0.07 mcg/kg/min, 8.335 mls/hr Documented By: Titration: 09/08/24 21:41 Dose: 0.07 mcg/kg/min, 8.335 mls/hr Documented By: Titration: 09/08/24 21:36 Dose: 0.07 mcg/kg/min, 8.335 mls/hr Documented By: Titration: 09/08/24 21:31 Dose: 0.07 mcg/kg/min, 8.335 mls/hr Documented By: Titration: 09/08/24 21:26 Dose: 0.07 mcg/kg/min, 8.335 mls/hr Documented By: Titration: 09/08/24 21:21 Dose: 0.07 mcg/kg/min, 8.335 mls/hr Documented By: Titration: 09/08/24 21:16 Dose: 0.07 mcg/kg/min, 8.335 mls/hr Documented By: Admin: 09/08/24 21:11 Dose: 0.05 mcg/kg/min, 5.953 mls/hr Documented By: KG Pantoprazole Sodium (Protonix/Ns 80mg Iv Premix) 80 mg in 100 mls @ 400 mls/hr IV X1 ONE Stop: 09/08/24 21:12 Last Infusion: 09/08/24 22:54 Dose: Infused Documented By: Admin: 09/08/24 22:39 Dose: 400 mls/hr Documented By: KG Piperacillin/Tazobactam/Dextrose (Zosyn) 100 mls @ 200 mls/hr IV Q8HR DES Stop: 09/15/24 21:28 Last Admin: 09/08/24 23:56 Dose: Not Given Documented By: KG Non-Admin Reason: Cancelled by Provider Admin: 09/08/24 23:55 Dose: Not Given Documented By: KG Non-Admin Reason: Cancelled by Provider Piperacillin Sod/Tazobactam (Sod 4.5 gm/ Sodium Chloride) 50 mls @ 100 mls/hr IV X1 ONE Stop: 09/08/24 22:29 Last Infusion: 09/08/24 23:05 Dose: Infused Documented By: Admin: 09/08/24 22:35 Dose: 100 mls/hr Documented By: KG Piperacillin Sod/Tazobactam (Sod 3.375 gm/ Sodium Chloride) 50 mls @ 12.5 mls/hr IV Q8HR DES; Protocol Stop: 09/15/24 05:59 Last Admin: 09/10/24 06:04 Dose: 12.5 mls/hr Documented By: Infusion: 09/10/24 01:12 Dose: Infused Documented By: Admin: 09/09/24 21:12 Dose: 12.5 mls/hr Documented By: Infusion: 09/09/24 18:10 Dose: Infused Documented By: Admin: 09/09/24 14:10 Dose: 12.5 mls/hr Documented By: Infusion: 09/09/24 10:15 Dose: Infused Documented By: Admin: 09/09/24 06:15 Dose: 12.5 mls/hr Documented By: MIGUEL ÁNGEL Dextrose (D5w) 1,000 mls @ 100 mls/hr IV .Q10H [facility] Stop: 10/09/24 06:29 Last Admin: 09/09/24 18:43 Dose: Not Given Documented By: PAULINO Non-Admin Reason: Discontinued Infusion: 09/09/24 11:51 Dose: 0 mls/hr Documented By: Admin: 09/09/24 07:27 Dose: 100 mls/hr Documented By: PAULINO Lactated Ringer's (Lactated Ringers) 500 mls @ 999 mls/hr IV .Q31M ONE Stop: 09/09/24 13:46 Last Admin: 09/09/24 13:23 Dose: 999 mls/hr Documented By: PAULINO Sodium Chloride (Ns) 250 mls @ 999 mls/hr IV .Q16M ONE Stop: 09/11/24 10:40 Last Admin: 09/11/24 10:57 Dose: 999 mls/hr Documented By: YANA Magnesium Sulfate (Magnesium Sulfate Ivpb) 2 gm in 50 mls @ 25 mls/hr IV X1 ONE Stop: 09/11/24 12:44 Last Admin: 09/11/24 10:57 Dose: 25 mls/hr Documented By: YANA Insulin Glargine (Insulin Glargine (Lantus) 5 Unit/0.05 Ml (Per 5 Units)) 5 unit SC QDAY [facility] Stop: 10/09/24 08:59 Last Admin: 09/09/24 08:40 Dose: 5 unit Documented By: PAULINO Co-signed By: JAMIE Insulin Glargine (Insulin Glargine (Lantus) 5 Unit/0.05 Ml (Per 5 Units)) 10 unit SC HS [facility] Stop: 10/10/24 20:59 Insulin Glargine (Insulin Glargine (Lantus) 5 Unit/0.05 Ml (Per 5 Units)) 5 unit SC X1 ONE Stop: 09/10/24 07:44 Last Admin: 09/10/24 08:22 Dose: 5 unit Documented By: Co-signed By: JOSTIN Insulin Glargine (Insulin Glargine (Lantus) 5 Unit/0.05 Ml (Per 5 Units)) 15 unit SC HS DES Stop: 10/10/24 20:59 Last Admin: 09/11/24 20:39 Dose: 15 unit Documented By: MARIA Co-signed By: DEBRA Admin: 09/10/24 20:17 Dose: 15 unit Documented By: AIYANA Co-signed By: MARIA Insulin Human Lispro (Insulin Lispro (Admelog) 1 Unit/0.01 Ml Unit) 0 unit SC AC DES; Protocol Stop: 10/09/24 07:29 Insulin Human Lispro (Insulin Lispro (Admelog) 1 Unit/0.01 Ml Unit) 0 unit SC Q6HR DES; Protocol Stop: 10/09/24 11:59 Insulin Human Lispro (Insulin Lispro (Admelog) 1 Unit/0.01 Ml Unit) 0 unit SC Q6HR DES; Protocol Stop: 10/09/24 11:59 Insulin Human Lispro (Insulin Lispro (Admelog) 1 Unit/0.01 Ml Unit) 0 unit SC Q6HR DES; Protocol Stop: 10/09/24 11:59 Last Admin: 09/09/24 13:24 Dose: 3 unit Documented By: PAULINO Co-signed By: JAMIE Comments: Per MD Carroll give now Insulin Human Lispro (Insulin Lispro (Admelog) 1 Unit/0.01 Ml Unit) 0 unit SC AC DES; Protocol Stop: 10/09/24 16:44 Last Admin: 09/10/24 12:10 Dose: 4 unit Documented By: Co-signed By: YANA Admin: 09/10/24 07:48 Dose: 3 unit Documented By: ANDREAS Co-signed By: YANA Admin: 09/09/24 18:43 Dose: Not Given Documented By: PAULINO Non-Admin Reason: see 1821 dose Admin: 09/09/24 18:21 Dose: 2 unit Documented By: PAULINO Co-signed By: ANNALEE Insulin Human Lispro (Insulin Lispro (Admelog) 1 Unit/0.01 Ml Unit) 0 unit SC AC DES; Protocol Stop: 10/09/24 16:44 Last Admin: 09/12/24 11:33 Dose: 6 unit Documented By: MERLYN Co-signed By: JOSTIN Admin: 09/12/24 07:19 Dose: 4 unit Documented By: MERLYN Co-signed By: JOSTIN Admin: 09/11/24 16:45 Dose: 4 unit Documented By: YANA Co-signed By: JOSTIN Admin: 09/11/24 11:18 Dose: 4 unit Documented By: JOSSELYN Co-signed By: YANA Comments: Medication given with instructor Lisa NGO Admin: 09/11/24 07:51 Dose: 3 unit Documented By: JOSSELYN Co-signed By: YANA Admin: 09/10/24 17:27 Dose: 4 unit Documented By: Co-signed By: YANA Levothyroxine Sodium (Levothyroxine Sodium 125 Mcg Tablet) 125 mcg PO ACBR DES Stop: 10/09/24 05:59 Last Admin: 09/12/24 05:10 Dose: 125 mcg Documented By: Admin: 09/11/24 05:16 Dose: 125 mcg Documented By: Admin: 09/10/24 05:16 Dose: 125 mcg Documented By: Admin: 09/09/24 06:54 Dose: Not Given Documented By: MIGUEL ÁNGEL Non-Admin Reason: NPO Lidocaine HCl (Lidocaine Jelly 2% (Urojet) 10 Ml Tube) 0 ml TOP X1 ONE Stop: 09/09/24 00:16 Last Admin: 09/09/24 00:25 Dose: 10 ml Documented By: MIGUEL ÁNGEL Midodrine (Midodrine 5 Mg Tablet) 5 mg PO Q8HR DES Stop: 10/09/24 07:59 Last Admin: 09/09/24 08:40 Dose: 5 mg Documented By: PAULINO Nitrofurantoin Macrocrystals (Nitrofurantoin Macro 100 Mg Capsule) 100 mg PO BID DES Stop: 09/17/24 13:44 Last Admin: 09/12/24 09:17 Dose: 100 mg Documented By: Admin: 09/11/24 20:41 Dose: 100 mg Documented By: Admin: 09/11/24 08:29 Dose: 100 mg Documented By: JOSSELYN Comments: Medication given with instructor Lisa NGO Admin: 09/10/24 20:18 Dose: 100 mg Documented By: Admin: 09/10/24 14:30 Dose: 100 mg Documented By: ANDREAS Ondansetron HCl (Ondansetron Inj 2 Mg/Ml Inj 2 Ml) 4 mg IV Q8HR PRN; Protocol PRN Reason: NAUSEA OR VOMITING Stop: 10/08/24 20:56 Last Admin: 09/08/24 23:17 Dose: 4 mg Documented By: KG Pantoprazole Sodium (Pantoprazole Inj 40 Mg Vial) 40 mg IVP BID DES Stop: 10/09/24 08:59 Last Admin: 09/09/24 08:39 Dose: 40 mg Documented By: GE Pantoprazole Sodium (Pantoprazole Inj 40 Mg Vial) 40 mg IVP QDAY DES Stop: 10/10/24 08:59 Last Admin: 09/12/24 09:17 Dose: 40 mg Documented By: Admin: 09/11/24 08:44 Dose: 40 mg Documented By: Admin: 09/10/24 08:24 Dose: 40 mg Documented By: Potassium Phos/Sodium Phos (Naph,[facility] 1 Packet (1.5 Gm)) 2 packet PO X1 ONE Stop: 09/11/24 10:25 Last Admin: 09/11/24 10:57 Dose: 2 packet Documented By: JOSSELYN Comments: Medication given with instructor Lisa NGO Given Consultations Consultation(s) initiated? (list below): Yes Consultation #1 (Physician, Specialty, Details): 17:45 Hospitalist Team B, Dr. Miller with Dr. Jones - Discussed patient's presentation, findings, and examination. Requests for CT head to be completed prior to admission to further investigate to rule out other underlying etiologies to altered mental status, will order CT head and results pending. Diagnosis Differential diagnosis altered mental status: altered mental status, delirium and hyponatremia Most likely diagnosis given after review of the tests above:: Acute metabolic encephalopathy secondary to UTI, hyponatremia, dehydration, uremia Admission Indicated Admission indicated?: indicated Explain why admission is indicated or not indicated:: Patient will need IV antibiotics and fluids due to altered mental status and unable to safely take PO at this time. Admission Request Was there a request for admission?: Yes Admission Attestation Admission request attestation: Discussed case with [] from Hospitalist service regarding admission. Discussed patients ED course, exam findings, labs, and radiology results. The Hospitalist [agrees,declines] to accept the patient for admission. Disposition Plan Disposition Plan: Admit Discharge Plan Plan Patient Disposition: Admit Acute Care w/in Hospital Disposition Comment: Stable and returned to baseline Patient condition on transfer: Stable Problem List Clinical Impression: Acute metabolic encephalopathy Patient/Caregiver Discharge Instructions Discharge Activity: as per physical therapy MD Attestation MD Attestation The patient was seen by the PGY 2. I, the supervising physician, also encountered and examined the patient and remained present during the entire ER visit. With the PGY 2 we formulated the encounter, workup, management, treatment, and medical decision making. I agree with the plan and documentation.
--- NOTE | 2024-09-08 15:52 | PC.NURSE ---
[facility], PER STAFF PT WAS ALTERED THIS MORNING, UNKNOWN TIME. STAFF CHECKED ON HIM AGAIN AT 12PM NOTICED HE REMAINED ALTERED, HIS BP DROPPED AND HE WAS NOT RESPONDING TO STERNAL RUB. BP WAS30/32 FOR EMS, SPO2 WAS LOW, EMS PLACED HIM ON NRB SPO2 CAME UP TO 91%. SNF STAFF PLACED IV AND STARTED NS BOLUS. PT MORE ALERT NOW, 100% ON RA AWAKE AND RESPONDING TO PROVIDER
--- NOTE | 2024-09-08 15:57 | XR_ITS ---
Examination: AP chest single view Technique one AP portable upright chest single view Exam date and time: Every ,025 1615 hours Comparison August 02, 2024 INDICATIONS: Shortness breath today. FINDINGS: Pneumonia left base obscuring detail left hemidiaphragm Moderate elevation right hemidiaphragm Mild prominence left ventricle No pulmonary edema IMPRESSION: Left base pneumonia
[2024-09-08 16:20] LABS: Collection Type, Urine Clean Catch; Squamous Epithelial Cell,Urine 0 /hpf (0-5)
[2024-09-08 16:23] LABS: Lactate (Lactic Acid) 2.3 mMol/L (0.4-2.0)
[2024-09-08 16:29] LABS: Basophils # (Auto) 0.1 Thou/mm3 (0.0-0.2); Basophils % (Auto) 0 % (0-2.5); Eosinophils % (Auto) 0 % (0-10); Hematocrit 43.6 % (41.0-53.0); Hemoglobin 14.9 g/dL (13.5-16.0); Immature Granulocytes % (Auto) 1 % (0-0); Immature Granulocytes Auto 0.23 Thou/mm3 (0.00-0.00); Lymphocytes # (Auto) 1.1 Thou/mm3 (1.0-4.8); Lymphocytes % (Auto) 5 % (10-50); Mean Corpuscular HGB Conc 34.2 g/dl (31.0-37.0); Mean Corpuscular Hemoglobin 25.8 pg (25.0-35.0); Mean Corpuscular Volume 75 fL (80-100); Monocytes # (Auto) 1.1 Thou/mm3 (0.0-0.8); Monocytes % (Auto) 5 % (0-12); Neutrophils # (Auto) 20.5 Thou/mm3 (1.8-7.7); Neutrophils % (Auto) 89 % (37-80); Nucleated Red Blood Cell % 0 /100 WBC (0); Platelet Count 241 Thou/mm3 (140-440); RDW Standard Deviation 49.5 fL (35.1-43.9); Red Blood Count 5.78 Miln/mm3 (4.50-5.90); White Blood Count 22.9 Thou/mm3 (3.8-10.6)
[2024-09-08 16:35] LABS: Bacteria,Urine 4+; Bilirubin,Urine Negative (Negative); Blood,Urine 3+ (Negative); Color,Urine Orange (Lt Yel-Yel); Glucose, Urine Negative (Negative); Ketones,Urine Negative (Negative); Leukocyte Esterase,Urine Positive (Negative); Nitrite,Urine Negative (Negative); PH,Urine 6.5 (5.0-7.0); Protein,Urine 2+ (Neg - Trace); RBC,Urine 42 /hpf (0-3); Specific Gravity,Urine 1.008 (1.001-1.035); Urobilinogen,Urine Negative mg/dL (0.0-1.0); WBC,Urine 4851 /hpf (0-5)
[2024-09-08 16:42] LABS: Clarity,Urine Turbid (Clear/Hazy)
[2024-09-08 16:51] LABS: Alanine Aminotransferase 16 U/L (10-49); Albumin, Serum 3.5 gm/dL (3.4-4.8); Albumin/Globulin Ratio 0.8 (1.2-2.2); Alkaline Phosphatase 154 U/L (46-116); Anion Gap 7 (7-16); Aspartate Amino Transferase 25 U/L (0-34); BUN/Creatinine Ratio 35 Ratio (12-20); Bilirubin,Total 0.6 mg/dL (0.3-1.2); Blood Urea Nitrogen 60 mg/dL (9-23); Calcium 9.2 mg/dL (8.3-10.6); Calcium (Corrected) 9.6 mg/dL (8.5-10.1); Carbon Dioxide 26.9 mMol/L (20.0-31.0); Chloride 90 mMol/L (98-107); Creatinine (Component) 1.7 mg/dL (0.6-1.3); Globulin 4.3 gm/dL (2.3-3.5); Glucose 143 mg/dL (74-106); Osmolality,Calculated 268 (275-295); Potassium 5.4 mMol/L (3.4-5.1); Procalcitonin 0.24 ng/ml (0.0-0.49); Sodium 124 mMol/L (136-145); Total Protein 7.8 gm/dL (5.7-8.2); eGFR 38 See Note
[2024-09-08] MEDS: cefTRIAXone 1,000 MG in SODIUM CHLORIDE 0.9% (Popper) 50 ML 100 MG IV (17:20)
[2024-09-08] MEDS: SODIUM CHLORIDE 0.9% 1000 ML 1,000 ML 999 ML IV (17:20)
--- NOTE | 2024-09-08 17:31 | XR_ITS ---
Examination: CT brain head without contrast. 2-D sagittal coronal reconstructions Date and time of exam:September 08, 2024 1747 hrs. Comparison: October 29, 2023 Indications: Onset altered mental status today CTDI: vol (mGy):49.5 DLP: (mGycm):1009 Technique: Multiple CT axial sections of the brain have been obtained, 5 mm slice thickness. Contrast has not been administered. 2-D sagittal, coronal reconstructions have been obtained Low dose protocols were performed. One or more of the following dose reduction techniques were used; automated exposure control, adjustment of the mA and/or KV according to patient size, use of iterative reconstruction technique. Findings: No significant ventricular enlargement. Intra-axial or extra-axial hemorrhage density is not seen. No mass effect or midline shift Basal cisterns are not remarkable. Fourth ventricle is midline. Cranial vault intact. Impression: Negative for acute hemorrhage, mass effect or midline shift Advise clinical correlation follow-up accordingly
--- NOTE | 2024-09-08 18:10 | PD.EDADDENDU ---
Emergency Room Addendum Addendum Narrative: 1800: Care assumed from Dr. Dempsey (attending Dr. Metz), the previous shift emergency physician. Past medical, surgical, social and family history reviewed. Vitals and home medications reviewed. Results and treatment plan discussed. I will assume the care of the patient at this time and will follow the patient, pending CT head. Please refer to the emergency department record for history and examination from initial visit.
--- NOTE | 2024-09-08 18:31 | EVENTNT_ITS ---
<Statement entered by Ranjit Mejía MD - 09/12/24 07:11> Agree with plan and examination finding on the note below. Patient seen and examined at bedside today. Labs and imaging reviewed. Patient care discussed with my attending Dr. Jones and co-resident Dr. Babcock. Documentation for date of: 09/08/24 Event Note Event Note: Called by ED to review 88-year-old male with past history of HFpEF, CAD s/p stents, hypertension, hyperlipidemia presenting with altered mental status secondary to acute metabolic encephalopathy in the setting of UTI. Also septic due to elevated lactic acid and elevated Pro-Dejon. Will review patient after CT brain is completed. Plan of care discussed with Attending Dr. Jones and PGY3 Dr. Kym Babcock MD PGY 1
--- NOTE | 2024-09-08 19:02 | PC.NURSE ---
Dr. Kline at the bedside.
--- NOTE | 2024-09-08 19:10 | PD.EDADDENDU ---
Emergency Room Addendum Addendum Narrative: 1800: Care assumed from Dr. Dempsey (attending Dr. Metz), the previous shift emergency physician. Past medical, surgical, social and family history reviewed. Vitals and home medications reviewed. Results and treatment plan discussed. I will assume the care of the patient at this time and will follow the patient, pending CT head. Please refer to the emergency department record for history and examination from initial visit. 1912: Discussed case with [Dr. Chavez] from Hospitalist service regarding admission. Discussed patients ED course, exam findings, labs, and radiology results. The Hospitalist [agrees] to accept the patient for admission. RADIOLOGY RESULTS: [facility] Report Signed Patient: SARA WILSON. Record#: [id number] Birthdate: 1935 Age/Sex: 88 / M Location: [facility] Attending Dr: Ordering Physician: Toña Dempsey MD Date of Service: 09/08/24 Procedure(s): CT head/brain wo con Accession Number(s): [id number] cc: Toña Dempsey MD; Barron Martinez MD; David Gray MD~ Examination: CT brain head without contrast. 2-D sagittal coronal reconstructions Date and time of exam:September 08, 2024 1747 hrs. Comparison: October 29, 2023 Indications: Onset altered mental status today CTDI: vol (mGy):49.5 DLP: (mGycm):1009 Technique: Multiple CT axial sections of the brain have been obtained, 5 mm slice thickness. Contrast has not been administered. 2-D sagittal, coronal reconstructions have been obtained Low dose protocols were performed. One or more of the following dose reduction techniques were used; automated exposure control, adjustment of the mA and/or KV according to patient size, use of iterative reconstruction technique. Findings: No significant ventricular enlargement. Intra-axial or extra-axial hemorrhage density is not seen. No mass effect or midline shift Basal cisterns are not remarkable. Fourth ventricle is midline. Cranial vault intact. Impression: Negative for acute hemorrhage, mass effect or midline shift Advise clinical correlation follow-up accordingly Dictated By: Barron Martinez MD Signed By: <Electronically signed by Barron Martinez MD in OV> 09/08/24 1805 Procedures -ED Central Line Placement Right SC: Time Out Performed: Yes Patient Placed on Monitor/Pulse Ox: Yes Hand Hygiene: soap & water Max Sterile Barrier Techniques used: cap, mask, sterile gown, sterile gloves and sterile full body drape Local Anesthetic: lidocaine 1% Amount of anesthesia used (mL): 8 Ultrasound Used for Placement: No Sterile Technique if Ultrasound used, including sterile gel: n/a Central Line Lumen Inserted: triple Post Procedure: sutured in place, good blood return, all ports aspirated, flushed, capped and sterile dressing applied Patient Tolerated Procedure: well and no complications Post Procedure CXR: good position, no pneumothorax, tip of the catheter is just above the right atrium, according to my interpretation.
[2024-09-08 19:18] LABS: Reflex Lactate? Y
[2024-09-08] MEDS: RINGERS LACTATED 1000 ML 1,000 ML 999 ML IV (19:40)
[2024-09-08 19:44] LABS: Lactic Acid, 3 HR 1.8 mMol/L (0.4-2.0)
[2024-09-08] MEDS: AZITHROMYCIN INJ 500 MG in SODIUM CHLORIDE 0.9% 250 ML 250 ML 250 MG IV (19:44)
--- NOTE | 2024-09-08 19:56 | PC.NURSE ---
Dr. Kline and residents at the bedside to place central line.
--- NOTE | 2024-09-08 20:28 | XR_ITS ---
Examination: AP chest single view Technique one AP portable supine chest single view Exam date and time: September 08, 20242001 hrs. Comparison December 06, 2024 1615 hrs. Indications: Post central line placement Findings: Right subclavian central line tip SVC Pneumonia left base No pneumothorax Mild prominence left ventricle Impression: Right subclavian central line tip SVC satisfactory position, no pneumothorax
--- NOTE | 2024-09-08 20:28 | PD.RESHP ---
Documentation for date of: 09/08/24 [facility] History of Present Illness History of present illness: Patient is a 88-year-old male with past medical history of hypertension, type 2 diabetes mellitus, hyperlipidemia, coronary artery disease status post stents, hypothyroidism, prostate cancer status post radiation therapy and slight dementia that presented to the ED from SNF due to altered mental status. Per nursing staff patient has been more somnolent today and was therefore brought to the ED. Patient does have chronic Alvarez placed due to prostate issues and bladder issues. Patient denying any chest pain, shortness of breath, nausea, vomiting, abdominal pain, fever or chills. Patient remains hypotensive although sepsis boluses was given and therefore will be admitted to ICU for pressure support. Patient denies any known drug allergies. Patient denies alcohol, smoking, or drug use. Patient CODE STATUS is DNR/DNI per POLST form Pertinent labs: WBCs 22.9, sodium 124, potassium 5.4, creatinine 1.7, lactic acid 2.3, Pro-Dejon WNL, UA positive for leukocyte Estrace, RBC, WBCs, and bacteria. Patient given IV fluids and antibiotics while in ED. CT head negative for any acute changes. Exam Vital Signs Temp Pulse Resp BP Pulse Ox O2 Del Method O2 Flow Rate 97.1 F 73 23 H 95/58 L 100 Nasal Cannula 2 09/08/24 18:08 09/08/24 19:40 09/08/24 19:40 09/08/24 19:40 09/08/24 19:40 09/08/24 19:40 09/08/24 19:40 Narrative Exam GENERAL: Pleasant elderly male. Alert and oriented x2, no acute distress. HEENT: Normocephalic, atraumatic. nonicteric. HEART: Regular rate and rhythm, slight murmur at cardiac apex, no rubs or gallops. LUNGS: Clear to auscultation bilaterally. No rales or rhonchi. ABDOMEN: Soft, non-tender, no guarding or rebound tenderness. There are no abnormal masses palpated. Slightly decreased bowel sounds. EXTREMITIES: Non-tender. No edema. Dry scaly skin lower extremities. SKIN: Warm and dry, no jaundice or rashes noted. Results: Labs 09/08/24 16:14 09/08/24 16:14 Labs: Short CBC 09/08/24 Range/Units 16:14 WBC 22.9 H (3.8-10.6) Thou/mm3 Hgb 14.9 (13.5-16.0) g/dL Hct 43.6 (41.0-53.0) % Plt Count 241 D (140-440) Thou/mm3 BMP 09/08/24 16:14 Sodium 124 L Potassium 5.4 H Chloride 90 L Carbon Dioxide 26.9 BUN 60 H Creatinine 1.7 H Glucose 143 H Calcium 9.2 Liver Function 09/08/24 Range/Units 16:14 Total Bilirubin 0.6 (0.3-1.2) mg/dL AST 25 (0-34) U/L ALT 16 (10-49) U/L Alkaline Phosphatase 154 H (46-116) U/L Albumin 3.5 (3.4-4.8) gm/dL Urine 09/08/24 Range/Units 16:02 Urine Color [place] A (Lt Yel-Yel) Urine Clarity Turbid A (Clear/Hazy) Urine pH 6.5 (5.0-7.0) Ur Specific [place] 1.008 (1.001-1.035) Urine Protein 2+ A (Neg - Trace) Urine Glucose (UA) Negative (Negative) Quality Measures Quality Measures sepsis Current suspected stage: sepsis Possible source: genitourinary Blood cultures ordered: yes Antibiotic ordered: Yes Advance care planning discussed with:: patient, child and other (POLST form) Medications Home Medications and Allergies Home Medications ?Medication ?Instructions ?Recorded ?Confirmed ?Type lovastatin 40 mg tablet 40 mg PO HS #0 tabs 04/02/16 10/29/23 History mirabegron 50 mg tablet,extended 50 mg PO QDAY 08/27/17 10/29/23 History release 24 hr (Myrbetriq) montelukast 10 mg tablet 10 mg PO QDAY 09/17/18 10/29/23 History donepezil 5 mg tablet 5 mg PO Q12HR 01/14/22 10/29/23 History ferrous sulfate 325 mg (65 mg 325 mg PO QDAY 01/14/22 10/29/23 History iron) tablet (FeroSul) losartan 25 mg tablet 25 mg 1XD 06/09/23 10/29/23 History acetaminophen 650 mg tablet 650 mg PO Q4H PRN Pain or Fever 07/27/23 10/29/23 History bisacodyl 10 mg rectal suppository 10 mg CO QDAY PRN Constipation 07/27/23 10/29/23 History (Dulcolax (bisacodyl)) Allergies Allergy/AdvReac Type Severity Reaction Status Date / Time No Known Allergies Allergy Verified 08/02/24 13:31 Visit Medications Acetaminophen (Acetaminophen 325 Mg Tablet) 650 mg PO Q6H PRN PRN Reason: Fever >101.5 Stop: 10/08/24 19:15 Dextrose (Dextrose 50%-Water Inj 50 Ml Syringe) 25 ml IV Q15MIN PRN PRN Reason: BG 50-70 responsive npo pt Stop: 10/08/24 19:18 Dextrose (Dextrose 50%-Water Inj 50 Ml Syringe) 50 ml IV Q15MIN PRN PRN Reason: BG <50 OR BG <70 & pt unresponsive Stop: 10/08/24 19:18 Glucagon (Glucagon Inj 1 Mg Vial) 1 mg IM Q15MIN PRN PRN Reason: BG <70, and no IV access Heparin Sodium (Porcine) (Heparin Sod Inj 5000 Unit/Ml Vial) 5,000 unit SC Q8HR [facility], 1928–1983 Stop: 09/22/24 21:59 Sodium Chloride (Ns) 1,000 mls @ 100 mls/hr IV .Q10H [facility], 1928–1983 Stop: 10/08/24 19:29 Ceftriaxone Sodium 1,000 mg/ (Sodium Chloride) 50 mls @ 100 mls/hr IV QDAY DES Stop: 09/16/24 08:59 Azithromycin 500 mg/ Sodium (Chloride) 250 mls @ 250 mls/hr IV QDAY@2100 [facility], 1928–1983 Stop: 09/16/24 20:59 Azithromycin 500 mg/ Sodium (Chloride) 250 mls @ 250 mls/hr IV X1 ONE Stop: 09/08/24 20:44 Last Admin: 09/08/24 19:44 Dose: 250 mls/hr Insulin Human Lispro (Insulin Lispro (Admelog) 1 Unit/0.01 Ml Unit) 0 unit SC [facility]; Protocol Stop: 10/09/24 07:29 Discontinued Medications Sodium Chloride (Ns) 1,000 mls @ 999 mls/hr IV .Q1H1M ONE Stop: 09/08/24 17:54 Last Infusion: 09/08/24 18:37 Dose: Infused Ceftriaxone Sodium 1,000 mg/ (Sodium Chloride) 50 mls @ 100 mls/hr IV X1 ONE Stop: 09/08/24 17:23 Last Infusion: 09/08/24 18:37 Dose: Infused Lactated Ringer's (Lactated Ringers) 1,000 mls @ 999 mls/hr IV .Q1H1M ONE Stop: 09/08/24 20:18 Last Admin: 09/08/24 19:40 Dose: 999 mls/hr Assessment & Plan Plan Patient is a 88-year-old male with past medical history of hypertension, type 2 diabetes mellitus, hyperlipidemia, coronary artery disease status post stents, hypothyroidism, prostate cancer status post radiation therapy and slight dementia that presented to the ED from SNF due to altered mental status. Patient found to be in septic shock secondary from pneumonia and UTI admitted to ICU for pressor support. Neuro #Acute encephalopathy #History of slight dementia Septic VS metabolic VS worsening dementia Imaging showing pneumonia and UA positive for UTI Patient does have hyponatremia Patient received sepsis bundle while in ED and IV antibiotics Will continue with IV antibiotics Will continue monitoring electrolytes Follow-up blood cultures Follow-up urine cultures Cardiac #Shock Septic VS hypovolemic Patient does have current infection with pneumonia and UTI 2 out of 4 SIRS criteria met leukocytosis and tachypnea Patient also has MELO with baseline creatinine being 1.0 current creatinine 1.7 Patient given IV fluids Patient started on Levophed to maintain MAP above 65 Wean off pressors as able Hold off on diuretics for now Holding home BP meds #History of hypertension #History of CAD's S/P stents #History of hyperlipidemia Holding antihypertensives for now in setting of shock Will resume home statin Pulm #Acute hypoxic respiratory failure secondary to pneumonia #Pneumonia Chest x-ray showing left base pneumonia Patient started on IV antibiotics Pending blood cultures Wean off oxygen as able Renal #MELO Baseline creatinine 1.0 current creatinine 1.7 Patient received IV fluids Renally dose medications Avoid nephrotoxic agents Follow-up creatinine #Hypoosmolar hypochloremic hyponatremia Patient does not appear to be in fluid overload Patient likely has decreased p.o. intake from dementia Patient given IV fluids Will follow-up with daily BMPs Goal is to not increase sodium more than 6 mill equivalents within 24 hours # Lactic acidosis?resolved GI/ #Upper GI bleed Patient had an episode of red-colored vomitus while in ED GI consulted Recommends NG tube with LIS Patient started on Protonix N.p.o. Follow-up H&H #History of prostate cancer Continue follow-up outpatient #Chronic Alvarez #UTI UA positive for leukocyte esterase, WBC, and bacteria Alvarez changed Follow-up urine cultures Follow blood cultures Patient on IV antibiotics Narrow antibiotics pending results Endo #History of diabetes Patient signed scale insulin #Hypothyroidism Continue home medication Heme #Leukocytosis Likely in setting of sepsis ID #Pneumonia #UTI Plan as discussed in above sections GI prophylaxis: Protonix DVT prophylaxis: SCDs CODE STATUS: DNR/DNI Case discussed with attending physician Dr. Scott Romero MD PGY3 Attending Provider Attestation/Addendum Pt was evaluated and plan formulated together with the housestaff team. I have reviewed the residents note above and agree with most of its content. Please refer to the residents note for additional details.
[2024-09-08] MEDS: SODIUM CHLORIDE 0.9% 1000 ML 1,000 ML 100 ML IV (21:03)
--- NOTE | 2024-09-08 21:04 | PC.NURSE ---
Dr. Riley at the bedside.
[2024-09-08] MEDS: Norepinephrine/D5W 8mg/250ml 8 MG/250 ML BAG 5.953 MG IV (21:11)
--- NOTE | 2024-09-08 22:00 | PC.NURSE ---
Asked by resident Dr. Riley to replace vo catheter. Attempted twice and unable to get any urine return. JENI Anderson attempted as well without success.
[2024-09-08] MEDS: TAZO IV (22:35)
[2024-09-08] MEDS: PIPER IV (22:35)
[2024-09-08] MEDS: SODIUM CHLORIDE 0.9% IV (22:35)
[2024-09-08] MEDS: PANTOPRAZOLE/NS 80MG IV PREMIX 80 MG/100 ML BAG 400 MG IV (22:39)
--- NOTE | 2024-09-08 23:00 | PC.NURSE ---
Attempted NG tube x2 without success. Pt has a hx of neck fx w/sx and unable to sit up straight and tuck chin so insertion was difficult.
[2024-09-08] MEDS: ONDANSETRON INJ 2 MG/ML INJ 2 ML 4 MG IV (23:17)
[2024-09-09] VITALS (84 sets, daily range): BP systolic 59–133; BP diastolic 45–85; PULSE 60–84; RESP 1–31; TEMP 35.8–36.6; O2SAT 97–100; BMI 23.3; BMI 12.0
[2024-09-09] MEDS: LIDOCAINE JELLY 2% (Urojet) 10 ML TUBE TOP (00:25)
[2024-09-09 00:35] LABS: Hematocrit 36.9 % (41.0-53.0); Hemoglobin 12.5 g/dL (13.5-16.0)
[2024-09-09 05:05] LABS: Basophils % (Auto) 0 % (0-2.5); Eosinophils % (Auto) 0 % (0-10); Hemoglobin 12.6 g/dL (13.5-16.0); Immature Granulocytes % (Auto) 1 % (0-0); Immature Granulocytes Auto 0.12 Thou/mm3 (0.00-0.00); Lymphocytes # (Auto) 1.4 Thou/mm3 (1.0-4.8); Lymphocytes % (Auto) 8 % (10-50); Mean Corpuscular HGB Conc 33.2 g/dl (31.0-37.0); Mean Corpuscular Hemoglobin 25.3 pg (25.0-35.0); Mean Corpuscular Volume 76 fL (80-100); Monocytes % (Auto) 6 % (0-12); Neutrophils # (Auto) 14.7 Thou/mm3 (1.8-7.7); Neutrophils % (Auto) 85 % (37-80); Nucleated Red Blood Cell % 0 /100 WBC (0); Platelet Count 237 Thou/mm3 (140-440); Red Blood Count 4.99 Miln/mm3 (4.50-5.90); White Blood Count 17.3 Thou/mm3 (3.8-10.6)
[2024-09-09 05:32] LABS: Anion Gap 7 (7-16); BUN/Creatinine Ratio 39 Ratio (12-20); Blood Urea Nitrogen 47 mg/dL (9-23); Calcium 8.7 mg/dL (8.3-10.6); Carbon Dioxide 27.3 mMol/L (20.0-31.0); Chloride 100 mMol/L (98-107); Creatinine (Component) 1.2 mg/dL (0.6-1.3); Estimated Creatinine Clearance 38.2 mL/min (>60); Glucose 250 mg/dL (74-106); Osmolality,Calculated 288 (275-295); Potassium 4.7 mMol/L (3.4-5.1); Sodium 134 mMol/L (136-145); eGFR 58 See Note
[2024-09-09] MEDS: PIPER/TAZO INJ 3.375 GM in SODIUM CHLORIDE 0.9% (Popper) 50 ML IV ×3 (06:15→21:12)
[2024-09-09 07:01] LABS: Sodium 134 mMol/L (136-145)
[2024-09-09] MEDS: DEXTROSE 5%-WATER 1,000 ML 100 ML IV (07:27)
[2024-09-09] MEDS: PANTOPRAZOLE INJ 40 MG VIAL IVP (08:39)
[2024-09-09] MEDS: INSULIN GLARGINE (Lantus) 5 UNIT/0.05 ML (PER 5 UNITS) SC (08:40)
[2024-09-09] MEDS: MIDODRINE 5 MG TABLET PO (08:40)
--- NOTE | 2024-09-09 09:46 | PCS.ST ---
Swallow Evaluation completed. See report for details. Recommend Dysphagia 3/Regular liquids when cleared for PO by medical team.
--- NOTE | 2024-09-09 10:06 | PC.SS ---
SS update: attempted contact with patient's daughter Yun to complete initial assessment. Left a voicemail requesting call back.
--- NOTE | 2024-09-09 10:16 | PC.SS ---
Initial assessment: this is 88 year old male who comes from [facility]. The patient is a short term resident, per daughter Caitlin. The patient is able to transfer with assistance device. Patient utilizes oxygen on 2L. Patient working with PT at the SNF. Patient followed by Dr. Fran Teran for primary care. Patient also followed by Dr. Morgan. Patient to return to [facility] upon discharge. Patient's daughter, Yun Wiley is the alternate point of contact in case of an emergency. D/c plan: [facility] Next of kin: daughterYun
[2024-09-09 10:55] LABS: Sodium 132 mMol/L (136-145)
[2024-09-09] MEDS: RINGERS LACTATED 500 ML 500 ML 999 ML IV (13:23)
[2024-09-09] MEDS: INSULIN LISPRO (AdmeLOG) 1 UNIT/0.01 ML UNIT SC ×2 (13:24→18:21)
--- NOTE | 2024-09-09 14:32 | EKG_ITS ---
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 [employer] Store: [employer] : 1935 Requested By: Jose Carroll Order Number: [id number] Reading MD: Jose Carroll Measurements Intervals [place] Rate: 75 P: 52 MS: 300 QRS: -35 QRSD: 146 T: 122 QT: 435 QTc: 487 Interpretive Statements SINUS RHYTHM WITH FIRST DEGREE AV BLOCK INDETERMINATE AXIS RIGHT BUNDLE BRANCH BLOCK ANTEROSEPTAL MYOCARDIAL INFARCTION , OF INDETERMINATE AGE MODERATE T-WAVE ABNORMALITY, CONSIDER LATERAL ISCHEMIA Compared to ECG 08/02/2024 14:34:47 First degree AV block now present T-wave abnormality now present Possible ischemia now present Myocardial infarct finding still present /store/S0/[id number]/ecg/[id number].pdf
--- NOTE | 2024-09-09 14:35 | PC.SS ---
SS update: Patient admitted to ICU for pressor support. Patient comes from SNF-[facility]. D/c plan is to return to SNF once stable.
[2024-09-09 14:37] LABS: Sodium 133 mMol/L (136-145)
--- NOTE | 2024-09-09 15:37 | PD.RESPRO ---
Documentation for date of: 09/09/24 Subjective Subjective Interval history: Patient is a 88-year-old male with past medical history of hypertension, type 2 diabetes mellitus, hyperlipidemia, coronary artery disease status post stents, hypothyroidism, prostate cancer status post radiation therapy and slight dementia that presented to the ED from SNF due to altered mental status. Per nursing staff patient has been more somnolent today and was therefore brought to the ED. 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 Patient denying any chest pain, shortness of breath, nausea, vomiting, abdominal pain, fever or chills. Patient remains hypotensive although sepsis boluses was given and therefore will be admitted to ICU for pressure support. Patient denies any known drug allergies. Patient denies alcohol, smoking, or drug use. Patient CODE STATUS is DNR/DNI per POLST form Pertinent labs: WBCs 22.9, sodium 124, potassium 5.4, creatinine 1.7, lactic acid 2.3, Pro-Dejon WNL, UA positive for leukocyte [place], RBC, WBCs, and bacteria. Patient given IV fluids and antibiotics while in ED. CT head negative for any acute changes. 09/09/2024: Patient interviewed and examined at bedside this a.m. Upon initial evaluation, the patient was however his limbs were perfused and warm to touch. Patient was alert and oriented to person place and situation however not oriented to time. Patient was admitted for septic shock with urinary source with marked pyuria on urinalysis. Patient was started on pipercillin/tazobactam due to history of resistant E.coli. White count improving. Patient's BP was stable after D/C pressors. Patient was placed on D5W at 100 cc/h due to a low sodium of 124. This a.m. repeat sodium corrected to 134 as evidenced on BMP. FSG was in the 400's, therfore D5W was d/c. Patient received 500cc bolus of LR due to hypotension. As H/H was stable and there was no evidence of bleeding, GI cosult was cancelled. Will continue pippercillin/tazobactam for continued treatment of UTI as cultures are pending. After reviewing CXR, low suspicion for pneumonia as CXR was suboptimal as patient was malrotated and poor inspiratory effort. Patient was observed for several hours after discontinuing levophed and was downgraded to general medicine team. Exam Vital Signs Temp Pulse Resp BP Pulse Ox O2 Del Method O2 Flow Rate 96.8 F 77 18 99/63 99 Nasal Cannula 1 09/09/24 08:00 09/09/24 10:00 09/09/24 10:00 09/09/24 10:00 09/09/24 10:00 09/09/24 08:00 09/09/24 08:00 FiO2 96 09/08/24 22:55 Narrative Exam General: Not in any visible or apparent acute distress, sick appearing, alert, pleasant and interactive HEENT: NC/AT, moist mucous membranes, oropharynx clear, trachea appears midline, no gross LAD Neck: Supple, No masses, No JVD, normal range of motion CVS: S1S2 Regular rate and rhythm, No murmurs, rubs or gallops Lungs: Normal respiratory effort, no wheezing rhonchi or rales, CTAB Abd: Soft, no tenderness to palpation, non-distended Ext: No edema, warm well perfused, decreased muscle tone Skin: Dry, Intact, no rashes, no lesions, no erythema Neuro: Alert and oriented to person place and situation but not to time, No gross focal neurological deficits noted Objective Labs 09/11/24 04:55 09/11/24 04:55 Labs: Laboratory Results - last 24 hr 09/08/24 09/08/24 09/08/24 16:02 16:14 19:27 WBC 22.9 H RBC 5.78 Hgb 14.9 Hct 43.6 MCV 75 L MCH 25.8 MCHC 34.2 RDW Std Deviation 49.5 H Plt Count 241 D Neut % (Auto) 89 H Lymph % (Auto) 5 L [place] % (Auto) 5 Eos % (Auto) 0 Baso % (Auto) 0 Neut # (Auto) 20.5 H Lymph # (Auto) 1.1 [place] # (Auto) 1.1 H Eos # (Auto) 0.0 Baso # (Auto) 0.1 Immature Gran # (Auto) 0.23 H Absolute Nucleated RBC 0.00 Immature Gran % 1 H Nucleated RBC % 0 Sodium 124 L Potassium 5.4 H Chloride 90 L Carbon Dioxide 26.9 Anion Gap 7 BUN 60 H Creatinine 1.7 H Estim Creat Clear Calc Not Performed. eGFR 38 L BUN/Creatinine Ratio 35 H Glucose 143 H Calculated Osmolality 268 L Lactic Acid 2.3 H 1.8 Calcium 9.2 Corrected Calcium 9.6 Total Bilirubin 0.6 AST 25 ALT 16 Alkaline Phosphatase 154 H Troponin I Total Protein 7.8 Albumin 3.5 Globulin 4.3 H Albumin/Globulin Ratio 0.8 L Procalcitonin 0.24 Ur Collection Type Clean Catch Urine Color [place] A Urine Clarity Turbid A Urine pH 6.5 Ur Specific [place] 1.008 Urine Protein 2+ A Urine Glucose (UA) Negative Urine Ketones Negative Urine Blood 3+ A Urine Nitrite Negative Urine Bilirubin Negative Urine Urobilinogen (Auto) Negative Ur Leukocyte Esterase Positive Urine RBC 42 H Urine WBC 4851 H Ur Squamous Epith Cells 0 Urine Bacteria 4+ A 09/09/24 09/09/24 09/09/24 00:20 04:49 06:35 WBC 17.3 H D RBC 4.99 Hgb 12.5 L D 12.6 L Hct 36.9 L 38.0 L MCV 76 L MCH 25.3 MCHC 33.2 RDW Std Deviation 51.0 H Plt Count 237 Neut % (Auto) 85 H Lymph % (Auto) 8 L [place] % (Auto) 6 Eos % (Auto) 0 Baso % (Auto) 0 Neut # (Auto) 14.7 H Lymph # (Auto) 1.4 [place] # (Auto) 1.0 H Eos # (Auto) 0.0 Baso # (Auto) 0.0 Immature Gran # (Auto) 0.12 H Absolute Nucleated RBC 0.00 Immature Gran % 1 H Nucleated RBC % 0 Sodium 134 L D 134 L Potassium 4.7 D Chloride 100 Carbon Dioxide 27.3 Anion Gap 7 BUN 47 H Creatinine 1.2 D Estim Creat Clear Calc 38.2 L eGFR 58 L BUN/Creatinine Ratio 39 H Glucose 250 H D Calculated Osmolality 288 Lactic Acid Calcium 8.7 Corrected Calcium Total Bilirubin AST ALT Alkaline Phosphatase Troponin I Total Protein Albumin Globulin Albumin/Globulin Ratio Procalcitonin Ur Collection Type Urine Color Urine Clarity Urine pH Ur Specific [place] Urine Protein Urine Glucose (UA) Urine Ketones Urine Blood Urine Nitrite Urine Bilirubin Urine Urobilinogen (Auto) Ur Leukocyte Esterase Urine RBC Urine WBC Ur Squamous Epith Cells Urine Bacteria 09/09/24 09/09/24 09/09/24 10:30 14:10 14:55 WBC RBC Hgb Hct MCV MCH MCHC RDW Std Deviation Plt Count Neut % (Auto) Lymph % (Auto) [place] % (Auto) Eos % (Auto) Baso % (Auto) Neut # (Auto) Lymph # (Auto) [place] # (Auto) Eos # (Auto) Baso # (Auto) Immature Gran # (Auto) Absolute Nucleated RBC Immature Gran % Nucleated RBC % Sodium 132 L 133 L Potassium Chloride Carbon Dioxide Anion Gap BUN Creatinine Estim Creat Clear Calc eGFR BUN/Creatinine Ratio Glucose Calculated Osmolality Lactic Acid Calcium Corrected Calcium Total Bilirubin AST ALT Alkaline Phosphatase Troponin I 0.040 Total Protein Albumin Globulin Albumin/Globulin Ratio Procalcitonin Ur Collection Type Urine Color Urine Clarity Urine pH Ur Specific [place] Urine Protein Urine Glucose (UA) Urine Ketones Urine Blood Urine Nitrite Urine Bilirubin Urine Urobilinogen (Auto) Ur Leukocyte Esterase Urine RBC Urine WBC Ur Squamous Epith Cells Urine Bacteria Quality Measures Quality Measures sepsis Current suspected stage: sepsis Possible source: genitourinary Blood cultures ordered: yes Antibiotic ordered: Yes Advance care planning discussed with:: patient Assessment & Plan Assessment Current Active Medications: Generic Name Dose Route Start Last Admin Trade Name Freq PRN Reason Stop Dose Admin Acetaminophen 650 mg 09/08/24 19:16 Acetaminophen 325 Mg Tablet PO 10/08/24 19:15 Q6H PRN Fever >101.5 Dextrose 25 ml 09/08/24 19:19 Dextrose 50%-Water Inj 50 Ml Syringe IV 10/08/24 19:18 Q15MIN PRN BG 50-70 responsive npo pt Dextrose 50 ml 09/08/24 19:19 Dextrose 50%-Water Inj 50 Ml Syringe IV 10/08/24 19:18 Q15MIN PRN BG <50 OR BG <70 & pt unresponsive Glucagon 1 mg 09/08/24 19:19 Glucagon Inj 1 Mg Vial IM Q15MIN PRN BG <70, and no IV access Piperacillin Sod/Tazobactam 50 mls @ 12.5 mls/hr 09/09/24 06:00 09/09/24 14:10 Sod 3.375 gm/ Sodium Chloride IV 09/15/24 05:59 12.5 mls/hr Q8HR DES Administration Protocol Dextrose 1,000 mls @ 100 mls/hr 09/09/24 06:30 09/09/24 07:27 D5w IV 10/09/24 06:29 100 mls/hr .Q10H DES Administration Insulin Glargine 5 unit 09/09/24 09:00 09/09/24 08:40 Insulin Glargine (Lantus) 5 Unit/0.05 Ml (Per 5 Units) SC 10/09/24 08:59 5 unit QDAY DES Administration Insulin Human Lispro 0 unit 09/09/24 12:00 09/09/24 13:24 Insulin Lispro (Admelog) 1 Unit/0.01 Ml Unit SC 10/09/24 11:59 3 unit Q6HR DES Administration Protocol Levothyroxine Sodium 125 mcg 09/09/24 06:00 09/09/24 06:54 Levothyroxine Sodium 125 Mcg Tablet PO 10/09/24 05:59 Not Given ACBR DES Ondansetron HCl 4 mg 09/08/24 20:57 09/08/24 23:17 Ondansetron Inj 2 Mg/Ml Inj 2 Ml IV 10/08/24 20:56 4 mg Q8HR PRN Administration NAUSEA OR VOMITING Protocol Pantoprazole Sodium 40 mg 09/09/24 09:00 09/09/24 08:39 Pantoprazole Inj 40 Mg Vial IVP 10/09/24 08:59 40 mg BID DES Administration Plan Assessment & Plan: Patient is a 88-year-old male with past medical history of hypertension, type 2 diabetes mellitus, hyperlipidemia, coronary artery disease status post stents, hypothyroidism, prostate cancer status post radiation therapy and slight dementia that presented to the ED from SNF due to altered mental status. Patient found to be in septic shock secondary from UTI admitted to ICU for pressor support. Neuro #Acute encephalopathy #History of slight dementia Septic VS metabolic VS worsening dementia UA positive for UTI Patient does have hyponatremia Patient received sepsis bundle while in ED and IV antibiotics Will continue with IV antibiotics Will continue monitoring electrolytes Follow-up blood cultures Follow-up urine cultures Cardiac #Shock - resolved Septic VS hypovolemic Septic shock was of urinary source given marked pyuria. Vo interchage for source control completed. Patient also has MELO with baseline creatinine being 1.0 current creatinine 1 improving to 1.2 Patient has been off of Levophed for several hours, maintain MAP above 65 Hold off on diuretics for now Holding home BP meds #History of hypertension #History of CAD's S/P stents #History of hyperlipidemia Holding antihypertensives for now in setting of shock Will resume home statin Pulmonary No active issues. Patient saturating 99% in ambient air Renal #MELO - improving Creatinine: 1.7 on admission, elevated from baseline of 1.0, improved to 1.2 after IV fluids Most likely prerenal in etiology in setting of septic shock/dehydration/decreased renal perfusion For essential medications that are renally cleared, adjust dosing daily Avoid Iodinated contrast media to prevent contrast induced nephropathy Avoid Gadolinium-based contrast agents to prevent?nephrogenic systemic fibrosis Avoid Nephrotoxic medications and drugs that may have a detrimental effect on glomerular pefusion Encourage PO intake #Hypoosmolar hypochloremic hyponatremia - improving -Trend Sodium q4hrs #Lactic acidosis?resolved GI/ #Upper GI bleed Unlikely to have acute GI bleed, as H&H has been stable. Therfore will cancel GI consult. -COntinue to trend H/H w/ daily AM CBC #History of prostate cancer Continue follow-up outpatient #Chronic Vo #UTI UA positive for leukocyte esterase, WBC, and bacteria -Vo interchanged for source control -Follow-up urine cultures -Follow blood cultures -Continue pipercillin/tazobactam due to history of resistant E.coli, de-escalate antibiotics after speciation and sensitivity of cultures. Endocrine #History of Type II Diabetes Mellitus - Hold patient's home Diabetes Medications - Patient started on Insulin Sliding scale - 5 Units Lantus Qday, titrate up to patient's home dose of 20 units qday after starting diet - ACHS accucheks - Follow up QAM CMP glucose level #Hypothyroidism Continue home medication Hemeatology #Leukocytosis - improving Likely in setting of sepsis ID #UTI Plan as discussed in above sections Fluids Electrolytes Nutrition: Analgesia: N/A Sedation: N/A Thromboprophylaxis: SCD's Head up position: N/A Ulcer prophylaxis: Pantoprazole 40 mg IV qday Glycemic control: Glargine 5 units qday, restart home dose after patient starts PO intake Spontaneous breathing trial: N/A Bowel regimen: Indwelling catheter: Chronic vo interchanges 09/09/2024 CODE STATUS: DNR/DNI Patient's case was discussed with supervising attending physician Dr. Gab Carroll M.D. Internal Medicine PGY-3 Attending Provider Attestation/Addendum Patient seen and examined with above resident, Jose Carroll MD. I agree with the findings, assessment, and plan of care as documented except for any differences below. Patient admitted overnight with septic shock secondary to complicated urinary tract infection likely cystitis in the setting of chronic Vo placement. Vo catheter has already probably been changed by staff in the ED on admission. Antibiotics initiated with aggressive volume fluid resuscitation with ability to wean off vasopressors. Additional organ damage is improving with resolution of altered mental status, clearance of lactic acid, and normalizing creatinine/acute kidney injury. Will await cultures for final narrowing of antibiotic regimen. Patient placed on appropriate prophylaxis and glycemic control. Patient is stable for transfer to medicine [facility]ace for ongoing management prior to discharge. Total critical care time: I personally spent 30 minutes for review of physiologic parameters, directing plan of care throughout the day, coordination of care with other specialists, and counseling patient and family at bedside. This is exclusive of time spent teaching housestaff performing any separate billable procedures. Patient required critical care services for severe sepsis with acute renal failure and acute encephalopathy.
--- NOTE | 2024-09-09 16:37 | PD.RESPRO ---
Documentation for date of: 09/09/24 Subjective Subjective Interval history: Patient seen at bedside. He is a an 88-year-old male with a past medical history of hypertension, hyperlipidemia, type II DM, CAD status post stent, hypothyroidism, prostate cancer s/p radiation therapy and mild dementia who presented to the ED on 09/08/2024 from [facility] with altered mental status. In the ED, patient was noted to have low blood pressure, elevated lactic acid and UA was positive for UTI. Chest x-ray also showed pneumonia The patient was admitted to ICU due to pressor requirements. Urine culture so far shows gram-negative puja and the patient was started on IV Zosyn based on previous cultures. Today, he is clinically stable and blood pressure is doing better, although borderline and has been downgraded back to the floors. Exam Vital Signs Temp Pulse Resp BP Pulse Ox O2 Del Method O2 Flow Rate 96.8 F 77 18 99/63 99 Nasal Cannula 1 09/09/24 08:00 09/09/24 10:00 09/09/24 10:00 09/09/24 10:00 09/09/24 10:00 09/09/24 08:00 09/09/24 08:00 FiO2 96 09/08/24 22:55 Narrative Exam GENERAL: AAOX3, elderly male NEURO: QUARTER FOLDER grossly intact, moves extremities x4 HEENT: Moist mucosa. Eyes open, symmetrical, & clear CARDIO: No chest pain on palpation. Heart RRR, no obvious murmurs PULM: No noted coughing/dyspnea. Minimal crackles on left base GI: Abdomen soft, nondistended, no pain on palpation. BSx4 URO/THERAPEUTIC RECREATION SPECIALIST:: No further abnormalities noted. Alvarez catheter in-situ SKIN/MSK/EXT: No wounds/rashes/edema/amputations, no pain on palpation. Pedal pulses present B/L Objective Labs 09/10/24 04:47 09/10/24 04:47 Labs: Laboratory Results - last 24 hr 09/08/24 09/08/24 09/08/24 16:02 16:14 19:27 WBC 22.9 H RBC 5.78 Hgb 14.9 Hct 43.6 MCV 75 L MCH 25.8 MCHC 34.2 RDW Std Deviation 49.5 H Plt Count 241 D Neut % (Auto) 89 H Lymph % (Auto) 5 L [place] % (Auto) 5 Eos % (Auto) 0 Baso % (Auto) 0 Neut # (Auto) 20.5 H Lymph # (Auto) 1.1 [place] # (Auto) 1.1 H Eos # (Auto) 0.0 Baso # (Auto) 0.1 Immature Gran # (Auto) 0.23 H Absolute Nucleated RBC 0.00 Immature Gran % 1 H Nucleated RBC % 0 Sodium 124 L Potassium 5.4 H Chloride 90 L Carbon Dioxide 26.9 Anion Gap 7 BUN 60 H Creatinine 1.7 H Estim Creat Clear Calc Not Performed. eGFR 38 L BUN/Creatinine Ratio 35 H Glucose 143 H Calculated Osmolality 268 L Lactic Acid 1.8 Calcium 9.2 Corrected Calcium 9.6 Total Bilirubin 0.6 AST 25 ALT 16 Alkaline Phosphatase 154 H Troponin I Total Protein 7.8 Albumin 3.5 Globulin 4.3 H Albumin/Globulin Ratio 0.8 L Procalcitonin 0.24 Ur Collection Type Clean Catch Urine Color [place] A Urine Clarity Turbid A Urine pH 6.5 Ur Specific [place] 1.008 Urine Protein 2+ A Urine Glucose (UA) Negative Urine Ketones Negative Urine Blood 3+ A Urine Nitrite Negative Urine Bilirubin Negative Urine Urobilinogen (Auto) Negative Ur Leukocyte Esterase Positive Urine RBC 42 H Urine WBC 4851 H Ur Squamous Epith Cells 0 Urine Bacteria 4+ A 09/09/24 09/09/24 09/09/24 00:20 04:49 06:35 WBC 17.3 H D RBC 4.99 Hgb 12.5 L D 12.6 L Hct 36.9 L 38.0 L MCV 76 L MCH 25.3 MCHC 33.2 RDW Std Deviation 51.0 H Plt Count 237 Neut % (Auto) 85 H Lymph % (Auto) 8 L [place] % (Auto) 6 Eos % (Auto) 0 Baso % (Auto) 0 Neut # (Auto) 14.7 H Lymph # (Auto) 1.4 [place] # (Auto) 1.0 H Eos # (Auto) 0.0 Baso # (Auto) 0.0 Immature Gran # (Auto) 0.12 H Absolute Nucleated RBC 0.00 Immature Gran % 1 H Nucleated RBC % 0 Sodium 134 L D 134 L Potassium 4.7 D Chloride 100 Carbon Dioxide 27.3 Anion Gap 7 BUN 47 H Creatinine 1.2 D Estim Creat Clear Calc 38.2 L eGFR 58 L BUN/Creatinine Ratio 39 H Glucose 250 H D Calculated Osmolality 288 Lactic Acid Calcium 8.7 Corrected Calcium Total Bilirubin AST ALT Alkaline Phosphatase Troponin I Total Protein Albumin Globulin Albumin/Globulin Ratio Procalcitonin Ur Collection Type Urine Color Urine Clarity Urine pH Ur Specific [place] Urine Protein Urine Glucose (UA) Urine Ketones Urine Blood Urine Nitrite Urine Bilirubin Urine Urobilinogen (Auto) Ur Leukocyte Esterase Urine RBC Urine WBC Ur Squamous Epith Cells Urine Bacteria 09/09/24 09/09/24 09/09/24 10:30 14:10 14:55 WBC RBC Hgb Hct MCV MCH MCHC RDW Std Deviation Plt Count Neut % (Auto) Lymph % (Auto) [place] % (Auto) Eos % (Auto) Baso % (Auto) Neut # (Auto) Lymph # (Auto) [place] # (Auto) Eos # (Auto) Baso # (Auto) Immature Gran # (Auto) Absolute Nucleated RBC Immature Gran % Nucleated RBC % Sodium 132 L 133 L Potassium Chloride Carbon Dioxide Anion Gap BUN Creatinine Estim Creat Clear Calc eGFR BUN/Creatinine Ratio Glucose Calculated Osmolality Lactic Acid Calcium Corrected Calcium Total Bilirubin AST ALT Alkaline Phosphatase Troponin I 0.040 Total Protein Albumin Globulin Albumin/Globulin Ratio Procalcitonin Ur Collection Type Urine Color Urine Clarity Urine pH Ur Specific [place] Urine Protein Urine Glucose (UA) Urine Ketones Urine Blood Urine Nitrite Urine Bilirubin Urine Urobilinogen (Auto) Ur Leukocyte Esterase Urine RBC Urine WBC Ur Squamous Epith Cells Urine Bacteria Quality Measures Quality Measures sepsis Current suspected stage: septic shock (LA >4 and/or hypotension) Sepsis reassessment completed at (date): 09/09/24 Sepsis reassessment completed at (time): 17:10 Possible source: genitourinary Blood cultures ordered: yes Antibiotic ordered: Yes Advance care planning discussed with:: patient Assessment & Plan Assessment Current Active Medications: Generic Name Dose Route Start Last Admin Trade Name Freq PRN Reason Stop Dose Admin Acetaminophen 650 mg 09/08/24 19:16 Acetaminophen 325 Mg Tablet PO 10/08/24 19:15 Q6H PRN Fever >101.5 Dextrose 25 ml 09/08/24 19:19 Dextrose 50%-Water Inj 50 Ml Syringe IV 10/08/24 19:18 Q15MIN PRN BG 50-70 responsive npo pt Dextrose 50 ml 09/08/24 19:19 Dextrose 50%-Water Inj 50 Ml Syringe IV 10/08/24 19:18 Q15MIN PRN BG <50 OR BG <70 & pt unresponsive Glucagon 1 mg 09/08/24 19:19 Glucagon Inj 1 Mg Vial IM Q15MIN PRN BG <70, and no IV access Piperacillin Sod/Tazobactam 50 mls @ 12.5 mls/hr 09/09/24 06:00 09/09/24 14:10 Sod 3.375 gm/ Sodium Chloride IV 09/15/24 05:59 12.5 mls/hr Q8HR DES Administration Protocol Dextrose 1,000 mls @ 100 mls/hr 09/09/24 06:30 09/09/24 07:27 D5w IV 10/09/24 06:29 100 mls/hr .Q10H DES Administration Insulin Glargine 5 unit 09/09/24 09:00 09/09/24 08:40 Insulin Glargine (Lantus) 5 Unit/0.05 Ml (Per 5 Units) SC 10/09/24 08:59 5 unit QDAY DES Administration Insulin Human Lispro 0 unit 09/09/24 16:45 Insulin Lispro (Admelog) 1 Unit/0.01 Ml Unit SC 10/09/24 16:44 AC [facility] Protocol Levothyroxine Sodium 125 mcg 09/09/24 06:00 09/09/24 06:54 Levothyroxine Sodium 125 Mcg Tablet PO 10/09/24 05:59 Not Given [facility] Ondansetron HCl 4 mg 09/08/24 20:57 09/08/24 23:17 Ondansetron Inj 2 Mg/Ml Inj 2 Ml IV 10/08/24 20:56 4 mg Q8HR PRN Administration NAUSEA OR VOMITING Protocol Pantoprazole Sodium 40 mg 09/10/24 09:00 Pantoprazole Inj 40 Mg Vial IVP 10/10/24 08:59 QDAY [facility] Plan Summary: The patient is an 88-year-old male with a past medical history of hypertension, hyperlipidemia, type II DM, CAD status post stent, hypothyroidism, prostate cancer s/p radiation therapy and mild dementia #Septic shock-resolved #Sepsis secondary to UTI #Likely E. coli #Left base pneumonia He presented to the ED on 09/08/2024 from [facility] with altered mental status. In the ED, patient was noted to have low blood pressure, elevated lactic acid and UA was positive for UTI. Chest x-ray also showed pneumonia The patient was admitted to ICU due to pressor requirements. Urine culture so far shows gram-negative puja and the patient was started on IV Zosyn based on previous cultures. Today, he is clinically stable and blood pressure is doing better, although borderline and has been downgraded back to the floors. Plan: -Continue IV Zosyn -Pending final read of blood cultures -Continue to monitor CBC -Pending MRSA nare -Midodrine if SBP <100 #Acute kidney injury On admission, patient had a creatinine of 1.7. Previous history shows a baseline of about 1.0. MELO is probably a complication of septic shock. The patient received IV fluids per sepsis protocol and creatinine today is 1.2. Plan: -Encourage oral intake -Avoid nephrotoxic medications -Continue to monitor renal panel #History of hypertension Patient has a history of hypertension and at home was on lisinopril. Due to septic shock, lisinopril was held and blood pressure still soft. Plan: -Continue to hold antihypertensive #History of type II DM Patient has a history of diabetes. Last A1c (10/30/2023)-8.8. Patient is on insulin 20 units daily at home. Currently he is on subcutaneous insulin 5 units daily Plan: -ISS -A1c -Continue subcutaneous glargine 5 units, adjust as needed -Hypoglycemic protocols in place #History of hypothyroidism The patient has a history of hypothyroidism and is on levothyroxine 100 mcg daily. Patient started on levothyroxine 125 mg Plan: -TSH -Continue levothyroxine Health maintenance: Dispo: Tele Diet: Dysphagia/Carb consistent GI: Pantoprazole DVT: SCDs Alvarez: Indwelling Lines: Peripheral PT: Ordered Code: DNR Case was discussed with Dr Jain PGY-2 and attending physician, Dr Sergey Vogel MD PGY1 Disclaimer: This note was dictated by speech recognition. Minor errors in superintendent menagerie may be present due to voice recognition software. Patient examined and case discussed with the team including attending physician. Note reviewed, I agree with the care plan as documented. Mr Goodman is a pleasant 88-year-old male who was admitted for sepsis secondary to E. coli UTI and left base pneumonia. He was found to have septic shock and was admitted to ICU for 1 day for management of septic shock requiring pressor support. Blood cultures show no growth at 24 hours. Urine culture preliminarily showing gram-negative puja. He was downgraded back to medical floors today on 09/09/2024, as MAP maintaining >60. MRSA screen pending. Leukocytosis improving. Acute kidney injury present on admission has now resolved. Plan: Continue IV Zosyn, follow-up final blood culture results and continue as needed midodrine in case MAP drops. Last A1c on file 8.8%, continue T2DM management. - Jhonathan Jain MD, PGY 2 Disclaimer: The document below may not be free of grammatical/phonetic/typographic errors due to use of voice recognition software. This does not dissuade from the commitment to providing health care with the patient's best interest in mind. Attending Provider Attestation/Addendum I have examined the patient, reviewed labs and imaging findings, discussed the case with the resident(s), and reviewed entered orders. I agree with the plan of care as outlined in this note, with these additional summaries/recommendations: Patient is a 88-year-old male with a medical history of coronary artery disease s/p stents, primary hypertension, hyperlipidemia, diabetes mellitus type 2, hypothyroidism, prostate cancer, and dementia who presented from SNF on [facility]24 with chief complaint of altered mental status. Patient was found to be in septic shock on admission and was admitted to the ICU. Patient was downgraded from ICU today 09/09/2024. Patient was admitted to the ICU for septic shock requiring pressor support. He has been weaned off pressors and transition to oral midodrine. Blood pressure remains on the softer side and we will monitor closely. Blood cultures show no growth at 24 hours. Urine culture preliminarily showing gram-negative puja. MRSA screen pending. Leukocytosis improving. We will continue IV Zosyn and follow-up culture results as they become available. Patient's mental status appears to be trending towards baseline. We will continue to treat underlying infection and monitor for improvement. Acute kidney injury present on admission has now resolved. Was most likely secondary to prerenal azotemia in the setting of septic shock. Continue to avoid nephrotoxic agents and renally dose medications. Hyponatremia back to baseline. Hold home antihypertensives for soft blood pressure. Continue basal and bolus insulin for diabetes mellitus type 2. Last A1c on file 8.8% and pending repeat. Continue levothyroxine for history of hypothyroidism. Repeat chemistry and hematology panel in AM. Dr. Sergey MD
[2024-09-09 18:46] LABS: Sodium 135 mMol/L (136-145)
[2024-09-09 23:12] LABS: Sodium 133 mMol/L (136-145)
--- NOTE | 2024-09-09 23:50 | ESPR_ITS ---
Documentation for date of: 09/09/24 Subjective Subjective Interval history: Patient is in ICU with his son at the bedside at dinnertime. He is able to tolerate oral diet well. He continues to have ptosis of the right eye more than the left and is not wanting to close his right eye to see 1 MH clearly. Denies any weakness or paresthesias in the extremities or face. Exam - Neurology Vital Signs Temp Pulse Resp BP Pulse Ox O2 Del Method O2 Flow Rate 96.4 F L 79 26 H 118/66 99 Nasal Cannula 1 09/09/24 20:00 09/09/24 20:00 09/09/24 20:00 09/09/24 20:00 09/09/24 20:00 09/09/24 20:00 09/09/24 20:00 FiO2 96 09/08/24 22:55 Narrative Exam GENERAL APPEARANCE: Well hydrated, well-nourished in no acute distress. HEENT: Normocephalic, atraumatic, extraocular movements intact. Ptosis bilaterally more so on the right. Pupils: Equal reacting to light and accommodation NECK: Supple, no JVD or bruits. CARDIOVASULAR: Heart: S1, S2 heard, regular without S3-S4 or murmur no rubs or gallops. LUNGS/CHEST: Clear to auscultation bilaterally. No rails, rhonchi, or wheezing. Normal inspection. ABDOMEN: Soft, nontender, with normal bowel sounds. No pulsatile masses. No rebound, rigidity, or guarding. Normal inspection and palpation. EXTREMITIES: Normal inspection and palpation. No edema, clubbing or cyanosis. SKIN: Warm and dry without rashes. Normal inspection. MUSCULOSKELETAL: No cervical, thoracic, lumbar or midline bony tenderness. Normal inspection. NEURO: Alert, awake and oriented x3. Cranial nerves: II through XII grossly intact. Speech and language: Normal with no dysarthria or dysphasia. Motor system: Tone and bulk: Normal: Strength:moves all 4 extremities; No pronator drift noted. Deep tendon reflexes: 2+ bilaterally symmetrical. Plantar reflex: Downgoing bilaterally. Sensory system: Intact to all modalities of sensation bilaterally. Rest of the exam: Limited. no signs of meningeal irritation noted. PSYCHIATRIC: Normal mood and affect. Objective Labs 09/09/24 04:49 09/09/24 22:29 Labs: Laboratory Results - last 24 hr 09/09/24 09/09/24 09/09/24 00:20 04:49 06:35 WBC 17.3 H D RBC 4.99 Hgb 12.5 L D 12.6 L Hct 36.9 L 38.0 L MCV 76 L MCH 25.3 MCHC 33.2 RDW Std Deviation 51.0 H Plt Count 237 Neut % (Auto) 85 H Lymph % (Auto) 8 L [place] % (Auto) 6 Eos % (Auto) 0 Baso % (Auto) 0 Neut # (Auto) 14.7 H Lymph # (Auto) 1.4 [place] # (Auto) 1.0 H Eos # (Auto) 0.0 Baso # (Auto) 0.0 Immature Gran # (Auto) 0.12 H Absolute Nucleated RBC 0.00 Immature Gran % 1 H Nucleated RBC % 0 Sodium 134 L D 134 L Potassium 4.7 D Chloride 100 Carbon Dioxide 27.3 Anion Gap 7 BUN 47 H Creatinine 1.2 D Estim Creat Clear Calc 38.2 L eGFR 58 L BUN/Creatinine Ratio 39 H Glucose 250 H D Calculated Osmolality 288 Calcium 8.7 Troponin I 09/09/24 09/09/24 09/09/24 10:30 14:10 14:55 WBC RBC Hgb Hct MCV MCH MCHC RDW Std Deviation Plt Count Neut % (Auto) Lymph % (Auto) [place] % (Auto) Eos % (Auto) Baso % (Auto) Neut # (Auto) Lymph # (Auto) [place] # (Auto) Eos # (Auto) Baso # (Auto) Immature Gran # (Auto) Absolute Nucleated RBC Immature Gran % Nucleated RBC % Sodium 132 L 133 L Potassium Chloride Carbon Dioxide Anion Gap BUN Creatinine Estim Creat Clear Calc eGFR BUN/Creatinine Ratio Glucose Calculated Osmolality Calcium Troponin I 0.040 09/09/24 09/09/24 18:25 22:29 WBC RBC Hgb Hct MCV MCH MCHC RDW Std Deviation Plt Count Neut % (Auto) Lymph % (Auto) [place] % (Auto) Eos % (Auto) Baso % (Auto) Neut # (Auto) Lymph # (Auto) [place] # (Auto) Eos # (Auto) Baso # (Auto) Immature Gran # (Auto) Absolute Nucleated RBC Immature Gran % Nucleated RBC % Sodium 135 L 133 L Potassium Chloride Carbon Dioxide Anion Gap BUN Creatinine Estim Creat Clear Calc eGFR BUN/Creatinine Ratio Glucose Calculated Osmolality Calcium Troponin I Assessment & Plan Assessment and plan (1) Acute metabolic encephalopathy: Status: Acute Assessment and plan: resolving, mental status is back to baseline. White count is trending down. Blood pressure is better not needing pressors follow-up with the urine culture as he is And the chest x-ray periodically as he is treated with antibiotics. This patient is stable, consider physical therapy evaluation for ambulation. (2) Diabetes mellitus: Status: Chronic Assessment and plan: Continue to check fingerstick glucose and follow sliding scale
[2024-09-10] VITALS (12 sets, daily range): BP systolic 105–143; BP diastolic 61–80; PULSE 61–86; RESP 10–18; TEMP 35.6–36.9; O2SAT 96–99; BMI 22.6
--- NOTE | 2024-09-10 04:37 | EKG_ITS ---
[facility] Test Date: 2024-09-10 Pat Name: SARA WILSON [facility] Male Fleecer: JUAN LUIS : 1935 Requested By: Ramy Corbett Order Number: [id number] Reading MD: Ramy Corbett Measurements Intervals Wood Rate: 62 P: 238 LA: 214 QRS: -28 QRSD: 158 T: 124 QT: 467 QTc: 477 Interpretive Statements ECTOPIC ATRIAL RHYTHM WITH FIRST DEGREE AV BLOCK RIGHT BUNDLE BRANCH BLOCK SEPTAL MYOCARDIAL INFARCTION , OF INDETERMINATE AGE MODERATE T-WAVE ABNORMALITY, CONSIDER LATERAL ISCHEMIA Compared to ECG 09/09/2024 15:11:32 Ectopic atrial rhythm now present Sinus rhythm no longer present Indeterminate axis no longer present Myocardial infarct finding still present T-wave abnormality still present Possible ischemia still present /[id number]/[id number]
[2024-09-10] MEDS: LEVOTHYROXINE SODIUM 125 MCG TABLET PO (05:16)
[2024-09-10] MEDS: PIPER/TAZO INJ 3.375 GM in SODIUM CHLORIDE 0.9% (Popper) 50 ML IV (06:04)
[2024-09-10 06:33] LABS: Basophils % (Auto) 0 % (0-2.5); Eosinophils # (Auto) 0.1 Thou/mm3 (0.0-0.5); Eosinophils % (Auto) 1 % (0-10); Hematocrit 35.9 % (41.0-53.0); Hemoglobin 11.9 g/dL (13.5-16.0); Immature Granulocytes % (Auto) 1 % (0-0); Lymphocytes # (Auto) 1.3 Thou/mm3 (1.0-4.8); Lymphocytes % (Auto) 10 % (10-50); Mean Corpuscular HGB Conc 33.1 g/dl (31.0-37.0); Mean Corpuscular Hemoglobin 25.9 pg (25.0-35.0); Mean Corpuscular Volume 78 fL (80-100); Monocytes # (Auto) 0.7 Thou/mm3 (0.0-0.8); Monocytes % (Auto) 6 % (0-12); Neutrophils # (Auto) 10.4 Thou/mm3 (1.8-7.7); Neutrophils % (Auto) 82 % (37-80); Nucleated Red Blood Cell % 0 /100 WBC (0); Platelet Count 199 Thou/mm3 (140-440); Red Blood Count 4.59 Miln/mm3 (4.50-5.90); White Blood Count 12.6 Thou/mm3 (3.8-10.6)
[2024-09-10 07:00] LABS: Anion Gap 7 (7-16); BUN/Creatinine Ratio 28 Ratio (12-20); Blood Urea Nitrogen 33 mg/dL (9-23); Calcium 8.8 mg/dL (8.3-10.6); Carbon Dioxide 28.3 mMol/L (20.0-31.0); Chloride 98 mMol/L (98-107); Creatinine (Component) 1.2 mg/dL (0.6-1.3); Estimated Creatinine Clearance 40.6 mL/min (>60); Glucose 264 mg/dL (74-106); Osmolality,Calculated 282 (275-295); Potassium 4.9 mMol/L (3.4-5.1); Sodium 133 mMol/L (136-145); Thyroid Stimulating Hormone 6.07 uIU/mL (0.55-4.78); eGFR 58 See Note
[2024-09-10] MEDS: INSULIN LISPRO (AdmeLOG) 1 UNIT/0.01 ML UNIT SC ×3 (07:48→17:27)
[2024-09-10] MEDS: INSULIN GLARGINE (Lantus) 5 UNIT/0.05 ML (PER 5 UNITS) SC (08:22)
[2024-09-10] MEDS: PANTOPRAZOLE INJ 40 MG VIAL IVP (08:24)
[2024-09-10 10:16] LABS: Glucose Estimated Average 255 mg/dL (80-131); Hemoglobin A1C 10.5 % Hgb (4.8-6.0)
[2024-09-10 10:20] LABS: Free T4 (Free Thyroxine) 1.14 ng/dL (0.89-1.76)
--- NOTE | 2024-09-10 13:17 | PD.RESPRO ---
Documentation for date of: 09/10/24 Subjective Subjective Interval history: Patient seen at bedside. No acute overnight events. He reports that he is doing well, has no complaints. His mentation is back at baseline, he is AO x 3 today. On examination, very minimal crackles in the left base of the lung, but otherwise she is doing well. Labs reviewed, WBC downtrending and sodium stable. Urine cultures on positive for E. coli, pansensitive will de-escalate antibiotics to Macrobid and anticipation of discharge. PT evaluated patient and recommended SNF placement. Exam Vital Signs Temp Pulse Resp BP Pulse Ox O2 Del Method O2 Flow Rate 96.8 F 84 18 112/80 97 Nasal Cannula 1 09/10/24 11:46 09/10/24 12:14 09/10/24 12:14 09/10/24 11:46 09/10/24 12:14 09/10/24 11:46 09/10/24 12:14 FiO2 96 09/08/24 22:55 Narrative Exam GENERAL: AAOX3 NEURO: DRUM BARKER OPERATOR grossly intact, moves extremities x4 HEENT: Moist mucosa. Eyes open, symmetrical, & clear CARDIO: No chest pain on palpation. Heart RRR, no obvious murmurs PULM: No noted coughing/dyspnea. Minimal crackles in left base of lung. Nasal cannula- 1L GI: Abdomen soft, nondistended, no pain on palpation. BSx4 URO/LOAN REVIEW OFFICER:: No further abnormalities noted. SKIN/MSK/EXT: No wounds/rashes/edema/amputations, no pain on palpation. Pedal pulses present B/L Objective Labs 09/11/24 04:55 09/11/24 04:55 Labs: Laboratory Results - last 24 hr 09/09/24 09/09/24 09/09/24 14:10 14:55 18:25 WBC RBC Hgb Hct MCV MCH MCHC RDW Std Deviation Plt Count Neut % (Auto) Lymph % (Auto) [place] % (Auto) Eos % (Auto) Baso % (Auto) Neut # (Auto) Lymph # (Auto) [place] # (Auto) Eos # (Auto) Baso # (Auto) Immature Gran # (Auto) Absolute Nucleated RBC Immature Gran % Nucleated RBC % Sodium 133 L 135 L Potassium Chloride Carbon Dioxide Anion Gap BUN Creatinine Estim Creat Clear Calc eGFR BUN/Creatinine Ratio Glucose Estimated Ave Glu mg/dL Hemoglobin A1c Calculated Osmolality Calcium Magnesium Troponin I 0.040 TSH Free T4 09/09/24 09/10/24 22:29 04:47 WBC 12.6 H RBC 4.59 Hgb 11.9 L Hct 35.9 L MCV 78 L MCH 25.9 MCHC 33.1 RDW Std Deviation 53.0 H Plt Count 199 D Neut % (Auto) 82 H Lymph % (Auto) 10 [place] % (Auto) 6 Eos % (Auto) 1 Baso % (Auto) 0 Neut # (Auto) 10.4 H Lymph # (Auto) 1.3 [place] # (Auto) 0.7 Eos # (Auto) 0.1 Baso # (Auto) 0.0 Immature Gran # (Auto) 0.10 H Absolute Nucleated RBC 0.00 Immature Gran % 1 H Nucleated RBC % 0 Sodium 133 L 133 L Potassium 4.9 Chloride 98 Carbon Dioxide 28.3 Anion Gap 7 BUN 33 H Creatinine 1.2 Estim Creat Clear Calc 40.6 L eGFR 58 L BUN/Creatinine Ratio 28 H Glucose [address] Glu mg/dL 255 H Hemoglobin A1c 10.5 H Calculated Osmolality 282 Calcium 8.8 Magnesium 2.0 Troponin I TSH 6.07 H Free T4 1.14 Quality Measures Quality Measures sepsis Current suspected stage: sepsis Possible source: genitourinary Blood cultures ordered: yes Antibiotic ordered: Yes Advance care planning discussed with:: patient Assessment & Plan Assessment Current Active Medications: Generic Name Dose Route Start Last Admin Trade Name Freq PRN Reason Stop Dose Admin Acetaminophen 650 mg 09/08/24 19:16 Acetaminophen 325 Mg Tablet PO 10/08/24 19:15 Q6H PRN Fever >101.5 Dextrose 25 ml 09/08/24 19:19 Dextrose 50%-Water Inj 50 Ml Syringe IV 10/08/24 19:18 Q15MIN PRN BG 50-70 responsive npo pt Dextrose 50 ml 09/08/24 19:19 Dextrose 50%-Water Inj 50 Ml Syringe IV 10/08/24 19:18 Q15MIN PRN BG <50 OR BG <70 & pt unresponsive Glucagon 1 mg 09/08/24 19:19 Glucagon Inj 1 Mg Vial IM Q15MIN PRN BG <70, and no IV access Piperacillin Sod/Tazobactam 50 mls @ 12.5 mls/hr 09/09/24 06:00 09/10/24 06:04 Sod 3.375 gm/ Sodium Chloride IV 09/15/24 05:59 12.5 mls/hr Q8HR DES Administration Protocol Insulin Glargine 10 unit 09/10/24 21:00 Insulin Glargine (Lantus) 5 Unit/0.05 Ml (Per 5 Units) SC 10/10/24 20:59 HS DES Insulin Human Lispro 0 unit 09/09/24 16:45 09/10/24 12:10 Insulin Lispro (Admelog) 1 Unit/0.01 Ml Unit SC 10/09/24 16:44 4 unit AC DES Administration Protocol Levothyroxine Sodium 125 mcg 09/09/24 06:00 09/10/24 05:16 Levothyroxine Sodium 125 Mcg Tablet PO 10/09/24 05:59 125 mcg ACBR DES Administration Ondansetron HCl 4 mg 09/08/24 20:57 09/08/24 23:17 Ondansetron Inj 2 Mg/Ml Inj 2 Ml IV 10/08/24 20:56 4 mg Q8HR PRN Administration NAUSEA OR VOMITING Protocol Pantoprazole Sodium 40 mg 09/10/24 09:00 09/10/24 08:24 Pantoprazole Inj 40 Mg Vial IVP 10/10/24 08:59 40 mg QDAY DES Administration Plan Summary: The patient is an 88-year-old male with a past medical history of hypertension, hyperlipidemia, type II DM, CAD status post stent, hypothyroidism, prostate cancer s/p radiation therapy and mild dementia #Acute encephalopathy- resolved #Septic shock-resolved #Sepsis secondary to UTI #E.Coli UTI #Left base pneumonia He presented to the ED on 09/08/2024 from [facility] with altered mental status. In the ED, patient was noted to have low blood pressure, elevated lactic acid and UA was positive for UTI. Chest x-ray also showed pneumonia The patient was admitted to ICU due to pressor requirements. Urine culture so far shows gram-negative puja and the patient was started on IV Zosyn based on previous cultures. Today, he is clinically stable and blood pressure is doing better, although borderline and has been downgraded back to the floors. 09/10/2024- He reports that he is doing well, has no complaints. His mentation is back at baseline, he is AO x 3 today. On examination, very minimal crackles in the left base of the lung, but otherwise she is doing well. Labs reviewed, WBC downtrending and sodium stable. Urine cultures on positive for E. coli, pansensitive will de-escalate antibiotics to Macrobid and anticipation of discharge. MRSA nares negative Plan: -DC IV Zosyn -Commence Macrobid 100mg BID -Continue to monitor CBC -Midodrine if SBP <100 #Acute kidney injury-resolving On admission, patient had a creatinine of 1.7. Previous history shows a baseline of about 1.0. MELO is probably a complication of septic shock. The patient received IV fluids per sepsis protocol and creatinine today is 1.2. Plan: -Encourage oral intake -Avoid nephrotoxic medications -Continue to monitor renal panel #Hyponatremia On admission, sodium was 124. Sodium today-133 Plan: -Allow to correct -Continue monitoring renal panel #History of hypertension Patient has a history of hypertension and at home was on lisinopril. Due to septic shock, lisinopril was held and blood pressure still soft. Plan: -Continue to hold antihypertensive #History of type II DM Patient has a history of diabetes. Last A1c (10/30/2023)-8.8. Patient is on insulin 20 units daily at home. Currently he is on subcutaneous insulin 5 units daily A1c- 10.5% Plan: -ISS -A1c -SC Lantus 10U HS -Hypoglycemic protocols in place #History of hypothyroidism The patient has a history of hypothyroidism and is on levothyroxine 100 mcg daily. Patient started on levothyroxine 125 mg TSH- 6.07, T4- 1.14 Plan: -Continue levothyroxine Health maintenance: Dispo: Tele Diet: Dysphagia/Carb consistent GI: Pantoprazole DVT: SCDs Alvarez: Indwelling Lines: Peripheral PT: Ordered Code: DNR Case was discussed with Dr Jain PGY-2 and attending physician, Dr Sergey Vogel MD PGY-1 Disclaimer: This note was dictated by speech recognition. Minor errors in customer solutions coordinator may be present due to voice recognition software. Patient examined and case discussed with the team including attending physician. Note reviewed, I agree with the care plan as documented. Mr Goodman is a pleasant 88-year-old male who was admitted for sepsis secondary to E. coli UTI and left base pneumonia. He was found to have septic shock and was admitted to ICU for 1 day for management of septic shock requiring pressor support. Blood cultures show no growth at 24 hours. Urine culture preliminarily showing gram-negative puja. He was downgraded back to medical floors today on 09/09/2024, as MAP maintaining >60. 09/10 : MRSA nares screen negative. Leukocytosis improving 17 -> 12.6 on IV Zosyn. Acute kidney injury present on admission has now resolved. Plan: - Continue IV Zosyn, final blood culture negative at 48 hours. Will transition to p.o. Augmentin in preparation for discharge tomorrow 09/11/2024 - Discontinued midodrine as needed, as blood pressure within normal limits and MAP maintaining >60. Physical therapy ordered for evaluation and RN requested to ambulate patient. - Last A1c on file 8.8%, added Glargine 15U HS to SSI. Anticipate blood glucose correction by tomorrow am. Will discharge on Degludec for optimization. Disposition: Patient to be discharged in 24 hours, if remains afebrile and leukocytosis continues to downtrend. - Jhonathan Jain MD, PGY 2 Disclaimer: The document below may not be free of grammatical/phonetic/typographic errors due to use of voice recognition software. This does not dissuade from the commitment to providing health care with the patient's best interest in mind. Attending Provider Attestation/Addendum I have examined the patient, reviewed labs and imaging findings, discussed the case with the resident(s), and reviewed entered orders. I agree with the plan of care as outlined in this note, with these additional summaries/recommendations: Patient is a 88-year-old male with a medical history of coronary artery disease s/p stents, primary hypertension, hyperlipidemia, diabetes mellitus type 2, hypothyroidism, prostate cancer, and dementia who presented from SNF on 09/08/2024 with chief complaint of altered mental status. Patient was found to be in septic shock on admission and was admitted to the ICU. Patient seen at bedside. No acute overnight events. Patients mental status appears back to baseline. He is alert & oriented X 3. He has no new symptoms to report today. Patient was admitted to the ICU for septic shock requiring pressor support. He has been weaned off pressors and transitioned to oral midodrine. Blood pressure remains on the softer side and we will monitor closely. Blood cultures show no growth at 24 hours. Urine culture grew E.coli. MRSA screen negative. Leukocytosis improving although not resolved. We will DC IV zosyn today and deescalate antibiotics. Acute kidney injury present on admission has now resolved. Was most likely secondary to prerenal azotemia in the setting of septic shock. Continue to avoid nephrotoxic agents and renally dose medications. Hyponatremia back to baseline. We will reinstitute home antihypertensives if able. Continue basal and bolus insulin for diabetes mellitus type 2. Last A1c on file 8.8% and pending repeat. Continue levothyroxine for history of hypothyroidism. Repeat chemistry and hematology panel in AM. Dr. Sergey MD
[2024-09-10] MEDS: NITROFURANTOIN MACRO 100 MG CAPSULE PO ×2 (14:30→20:18)
[2024-09-10] MEDS: INSULIN GLARGINE (Lantus) 5 UNIT/0.05 ML (PER 5 UNITS) 15 UNIT SC (20:17)
--- NOTE | 2024-09-10 21:25 | PC.NURSE ---
Dr portillo notified of pt having a run of 6 PVC's and having continuous PVC's. Pt asymptomatic, provider states to continue to monitor, no new orders.
--- NOTE | 2024-09-10 22:45 | PD.VPROG1 ---
Telemedicine visit statement This visit was conducted with the use of phone was obtained on 09/10/24 Documentation for date of: 09/10/24 Subjective Subjective Interval history: Patient is in medsurg, no new symptoms or recurrent episodes reported after admission. Tolerating oral diet well. Virtual exam Vital Signs Temp Pulse Resp BP Pulse Ox O2 Del Method O2 Flow Rate 97.6 F 63 18 114/74 98 Nasal Cannula 2 09/10/24 20:00 09/10/24 20:00 09/10/24 20:00 09/10/24 20:00 09/10/24 20:00 09/10/24 20:00 09/10/24 20:00 FiO2 96 09/10/24 20:00 Objective Labs 09/10/24 04:47 09/10/24 04:47 Labs: Laboratory Results - last 24 hr 09/09/24 09/10/24 22:29 04:47 WBC 12.6 H RBC 4.59 Hgb 11.9 L Hct 35.9 L MCV 78 L MCH 25.9 MCHC 33.1 RDW Std Deviation 53.0 H Plt Count 199 D Neut % (Auto) 82 H Lymph % (Auto) 10 [place] % (Auto) 6 Eos % (Auto) 1 Baso % (Auto) 0 Neut # (Auto) 10.4 H Lymph # (Auto) 1.3 [place] # (Auto) 0.7 Eos # (Auto) 0.1 Baso # (Auto) 0.0 Immature Gran # (Auto) 0.10 H Absolute Nucleated RBC 0.00 Immature Gran % 1 H Nucleated RBC % 0 Sodium 133 L 133 L Potassium 4.9 Chloride 98 Carbon Dioxide 28.3 Anion Gap 7 BUN 33 H Creatinine 1.2 Estim Creat Clear Calc 40.6 L eGFR 58 L BUN/Creatinine Ratio 28 H Glucose [address] Glu mg/dL 255 H Hemoglobin A1c 10.5 H Calculated Osmolality 282 Calcium 8.8 Magnesium 2.0 TSH 6.07 H Free T4 1.14 Assessment & Plan Assessment (1) Acute metabolic encephalopathy: resolved, mental status is back to baseline. White count is trending down. Blood pressure is better not needing pressors/midodrine Urine culture: grew E.coli, sensitive to many antibiotics including Nitrofurantoin. This patient is stable, consider physical therapy evaluation for ambulation. Pneumonia is better too on current antibiotics. (2) Diabetes mellitus: Continue to check fingerstick glucose and follow sliding scale keep it under controlled.
[2024-09-11] VITALS (8 sets, daily range): BP systolic 97–129; BP diastolic 63–77; PULSE 62–94; RESP 17–19; TEMP 36.2–36.6; O2SAT 96–98; BMI 33.9
[2024-09-11] MEDS: LEVOTHYROXINE SODIUM 125 MCG TABLET PO (05:16)
[2024-09-11 06:33] LABS: Basophils # (Auto) 0.1 Thou/mm3 (0.0-0.2); Basophils % (Auto) 1 % (0-2.5); Eosinophils # (Auto) 0.2 Thou/mm3 (0.0-0.5); Eosinophils % (Auto) 2 % (0-10); Hematocrit 37.1 % (41.0-53.0); Hemoglobin 12.3 g/dL (13.5-16.0); Immature Granulocytes % (Auto) 0 % (0-0); Immature Granulocytes Auto 0.05 Thou/mm3 (0.00-0.00); Lymphocytes # (Auto) 1.6 Thou/mm3 (1.0-4.8); Lymphocytes % (Auto) 14 % (10-50); Mean Corpuscular HGB Conc 33.2 g/dl (31.0-37.0); Mean Corpuscular Hemoglobin 25.8 pg (25.0-35.0); Mean Corpuscular Volume 78 fL (80-100); Monocytes # (Auto) 0.7 Thou/mm3 (0.0-0.8); Monocytes % (Auto) 6 % (0-12); Neutrophils # (Auto) 8.9 Thou/mm3 (1.8-7.7); Neutrophils % (Auto) 77 % (37-80); Nucleated Red Blood Cell % 0 /100 WBC (0); Platelet Count 215 Thou/mm3 (140-440); RDW Standard Deviation 51.9 fL (35.1-43.9); Red Blood Count 4.77 Miln/mm3 (4.50-5.90); White Blood Count 11.7 Thou/mm3 (3.8-10.6)
[2024-09-11 06:58] LABS: Anion Gap 6 (7-16); BUN/Creatinine Ratio 24 Ratio (12-20); Blood Urea Nitrogen 22 mg/dL (9-23); Calcium 8.9 mg/dL (8.3-10.6); Carbon Dioxide 28.2 mMol/L (20.0-31.0); Chloride 98 mMol/L (98-107); Creatinine (Component) 0.9 mg/dL (0.6-1.3); Estimated Creatinine Clearance 61.3 mL/min (>60); Glucose 125 mg/dL (74-106); Magnesium 1.8 mg/dL (1.6-2.6); Osmolality,Calculated 268 (275-295); Phosphorous 2.1 mg/dL (2.4-5.1); Potassium 4.3 mMol/L (3.4-5.1); Sodium 132 mMol/L (136-145); eGFR > 60 See Note
[2024-09-11] MEDS: INSULIN LISPRO (AdmeLOG) 1 UNIT/0.01 ML UNIT SC ×3 (07:51→16:45)
[2024-09-11] MEDS: NITROFURANTOIN MACRO 100 MG CAPSULE PO ×2 (08:29→20:41)
[2024-09-11] MEDS: PANTOPRAZOLE INJ 40 MG VIAL IVP (08:44)
[2024-09-11] MEDS: NAPH,KPH MBDB 1 PACKET (1.5 GM) 2 PACKET PO (10:57)
[2024-09-11] MEDS: SODIUM CHLORIDE 0.9% 250 ML 250 ML 999 ML IV (10:57)
[2024-09-11] MEDS: Magnesium Sulfate 2 GM Ivpb 2 GM/50 ML BAG IV (10:57)
--- NOTE | 2024-09-11 10:59 | PC.SS ---
Addendum entered by Mercy Hyman 09/11/24 11:59: SS spoke to physician and patient regarding his concerns for discharge. Patient verbalized he does not want to return to [facility]. He wants to d/c to another facility. Patient states he wants to d/c home but knows he cannot. He is agreeable to any other facility. SS sent out inquiry to all other facilities. Daughter is aware. D/c pending until tomorrow due to placement issue. Original Note: Follow up note; Patient has d/c orders for today. Patient is a short term resident of [facility]. SS spoke to daughter, Yun. She states someone told patient he was ready to go home. Patient is upset now and wants to d/c home rather than return to SNF. PT recommended further rehab as patient is still max assist. Daughter prefers patient to return to SNF as they cannot care for him in this current state. SS will speak with patient regarding discharge for today. Patient will need gurney transport and needs 02 for transport.
--- NOTE | 2024-09-11 14:15 | ESDS_ITS ---
Planned Discharge Date 09/11/24 DS: Providers Provider Date of admission: 09/08/24 19:16 Primary care physician: David Gray MD Admitting Provider: Darell Chavez MD Attending Provider on Admission: Gab Sanchez MD Consults: 09/09/24 00:43 Referral Physical Therapy Routine Comment: Physician Instructions: Referral Registered Dietitian Routine Comment: Referral Speech Therapy Routine Comment: Attending Provider on DC: Stewart Rincon MD Discharging Provider: Jhonathan Jain MD DS: Diagnosis Discharge Diagnosis (1) E. coli UTI: Status: Acute (2) Sepsis associated hypotension: Status: Acute Assessment & Plan: resolved Problem List Completed Was Problem List Reviewed/Reconciled?: Yes Hospital Course Hospital Course Hospital course: Hospital Course: Mr Goodman is a pleasant 88-year-old male with a past medical history of hypertension, hyperlipidemia, type II DM, CAD status post stent, hypothyroidism, prostate cancer s/p radiation therapy and mild dementia, who was admitted for sepsis secondary to E. coli UTI and left base pneumonia. He was found to have septic shock and was admitted to ICU for 1 day for management of septic shock requiring pressor support. Blood cultures show no growth at 24 hours. Urine culture preliminarily showing gram-negative puja. He was downgraded back to medical floors today on 09/09/2024, as MAP maintaining >60. MRSA nares screen negative. Leukocytosis improving 17 -> 12.6 on IV Zosyn. Acute kidney injury present on admission has now resolved. Patient transitioned from zosyn to Nitrofurantoin based on urine culture and senstivity. Blood cultures negative at 48 hours. Problems on this admission: - Acute encephalopathy- resolved - Septic shock- resolved - Sepsis secondary to UTI - E.Coli UTI - Left base pneumonia - Acute kidney injury-resolving - Hyponatremia - Primary hypertension - Type II DM - Hypothyroidism Procedures: Alvarez - discontinued Discharge instructions: - Follow up with your PCP after discharge - Continue Nitrofurantoin 100mg twice a day, for 7 more days to complete antibiotic course - Changed insulin Glargine to Degludec 20 units every evening, for optimization - Continue all other home medications as prescribed. - Stop Lorazepam as high risk in elderly and discontinue Midodrine, if BP drops hold your Lisinopril dose instead. - Return to the ED if symptoms worsen We are grateful to be able to participate in Mr Goodman's care. We wish him the best. - Jhonathan Jain MD Status at Discharge Cognitive/behavioral status at discharge: stable and returned to baseline Time Spent with Patient Time attestation: Total time spent providing and/or coordinating discharge services: more than 50% Exam Vital Signs Temp Pulse Resp BP Pulse Ox O2 Del Method O2 Flow Rate 97.6 F 78 17 116/76 97 Nasal Cannula 1 09/11/24 12:00 09/11/24 12:00 09/11/24 12:00 09/11/24 12:00 09/11/24 12:00 09/11/24 12:00 09/11/24 12:00 FiO2 96 09/11/24 04:00 Narrative Exam GENERAL: AAOX3 NEURO: EQUAL OPPORTUNITY DIRECTOR grossly intact, moves extremities x4 HEENT: Moist mucosa. Eyes open, symmetrical, & clear CARDIO: No chest pain on palpation. Heart RRR, no obvious murmurs PULM: No noted coughing/dyspnea. Minimal crackles in left base of lung. Nasal cannula- 1L GI: Abdomen soft, nondistended, no pain on palpation. BSx4 URO/CAFETERIA FOOD SERVER:: No further abnormalities noted. SKIN/MSK/EXT: No wounds/rashes/edema/amputations, no pain on palpation. Pedal pulses present B/L Discharge Plan Plan Patient Disposition: Xfer Skilled Nsg Fac (SNF) Disposition Comment: Stable and returned to baseline Patient condition on transfer: Stable Care Plan Goals: - Follow up with your PCP after discharge - Continue Nitrofurantoin 100mg twice a day, for 7 more days to complete antibiotic course - Changed insulin Glargine to Degludec 20 units every evening, for optimization - Continue all other home medications as prescribed. - Stop Lorazepam as high risk in elderly and discontinue Midodrine, if BP drops hold your Lisinopril dose instead. - Return to the ED if symptoms worsen Prescriptions/Referrals Prescriptions/Med Rec: New insulin degludec 200 unit/mL (3 mL) insulin pen 20 unit subcut QPM 30 Days Qty: 3 0RF nitrofurantoin macrocrystal 100 mg capsule 100 mg PO BID 7 Days Qty: 14 0RF Rx Instructions: must administer with a meal/food Continued mirabegron [Myrbetriq] 50 mg Tablet Extended Release 24 Hr 50 mg PO QDAY bisacodyl [Dulcolax (bisacodyl)] 10 mg Suppository 10 mg VT QDAY PRN (Reason: Constipation) Rx Instructions: If MOM ineffective or no BM for 8 hours zinc sulfate 50 mg zinc (220 mg) Capsule 220 mg PO QDAY Qty: 30 0RF (DME) pen needle, diabetic [Novofine 32] 32 gauge x 1/4 needle See Rx Instructions .Route Qty: 100 2RF Rx Instructions: As directed (DME) lancets-blood glucose strips 30 gauge combo pack See Rx Instructions .Route Qty: 50 2RF Rx Instructions: As directed (DME) FreeStyle [place] 2 [place] Misc See Rx Instructions .Route Qty: 1 0RF Rx Instructions: As directed (DME) FreeStyle [place]ctor 2 Sensor Kit See Rx Instructions .Route Qty: 1 0RF Rx Instructions: As directed (DME) pen needle, diabetic [Novofine 32] 32 gauge x 1/4 needle See Rx Instructions .Route Qty: 100 0RF Rx Instructions: As directed levothyroxine 100 mcg tablet 100 mcg PO QDAY Patient Comments: TAKE 1 TABLET BY MOUTH EVERY MORNING carvedilol 3.125 mg tablet 3.125 mg PO BID Patient Comments: TAKE 1 TABLET BY MOUTH DAILY tramadol 50 mg tablet 50 mg PO Q6H PRN (Reason: pain) lisinopril 2.5 mg tablet 2.5 mg PO QDAY magnesium hydroxide [Dulcolax (magnesium hydroxide)] 400 mg/5 mL suspension 30 ml PO .EVERY 72 HRS PRN (Reason: constipation) multivitamin [Daily Multi-Vitamin] Tablet 1 tab PO QAM nystatin 100,000 unit/gram powder 1 applic topical BID amino acids-protein hydrolys 15-101 gram-kcal/30 mL liquid 30 ea PO QDAY Patient Comments: 30 mL Rx Instructions: orally daily; Humulin R Regular U-100 Insuln 100 unit/mL solution 1 sliding scale dose subcut USEASDIRECTD Changed furosemide [Lasix] 40 mg tablet 40 mg PO DAILY Qty: 30 0RF ferrous sulfate [FeroSul] 325 mg (65 mg iron) tablet 325 mg PO EVERYOTHERDAY Qty: 30 0RF Patient Comments: TAKE 1 TABLET BY MOUTH EVERY DAY Discontinued acetaminophen 650 mg Tablet 650 mg PO Q4H PRN (Reason: Pain or Fever) ascorbic acid (vitamin C) [Vitamin C] 250 mg Tablet 500 mg PO BID Qty: 60 0RF lorazepam [Ativan] 0.5 mg tablet 0.5 mg PO HS PRN (Reason: anxiety) midodrine 5 mg tablet 5 mg PO Q8HR Rx Instructions: do not give last dose of day after 6PM or within 4 hrs of bedtime Enema Disposable 19-7 gram/118 mL enema 29.5 ml VT Q72H PRN (Reason: constipation) insulin glargine [Basaglar KwikPen U-100 Insulin] 100 unit/mL (3 mL) insulin p en 20 unit subcut QAM Referrals: David Gray MD [Primary Care Provider] - Patient/Caregiver Discharge Instructions Discharge Activity: as per physical therapy Education Materials: Using a Blood Sugar Log, Diabetes Exercise Plan Print Language: Spanish Stand Alone Forms: [place] Award Info., Patient Portal Info Letter Quality Discharge Quality Measures VTE prophylaxis and sepsis MD Attestestation MD Attestation I have examined the patient, reviewed labs and imaging findings, discussed the case with the resident(s), and reviewed entered orders. I agree with the plan of care as outlined in this note, with these additional summaries/recommendations: Patient is a 88-year-old male with a medical history of coronary artery disease s/p stents, primary hypertension, hyperlipidemia, diabetes mellitus type 2, hypothyroidism, prostate cancer, and dementia who presented from SNF on 09/08/2024 with chief complaint of altered mental status. Patient was found to be in septic shock on admission and was admitted to the ICU. Patient seen at bedside. No acute overnight events. Patient has no new symptoms to report today other than he declines being discharged to his previous SNF. Case management notified and working on placement. He is alert & oriented X 3. Patient was admitted to the ICU for septic shock requiring pressor support. He has been weaned off pressors and transitioned to oral midodrine and blood pressure has remained stable. Blood cultures show no growth at 48 hours. Urine culture grew E.coli. MRSA screen negative. Leukocytosis improving/resolving. S/P IV zosyn today and transitioned to oral antibiotics. Acute kidney injury present on admission has now resolved. Hyponatremia back to baseline. Continue basal and bolus insulin for diabetes mellitus type 2. Last A1c on file 8.8% and pending repeat. Continue levothyroxine for history of hypothyroidism. Anticipate discharge once placement has been made. Dr. Sergey MD
[2024-09-11] MEDS: INSULIN GLARGINE (Lantus) 5 UNIT/0.05 ML (PER 5 UNITS) 15 UNIT SC (20:39)
--- NOTE | 2024-09-11 23:14 | PD.VPROG1 ---
Telemedicine visit statement This visit was conducted with the use of interactive audio and video telecommunications system that permits real time communication between the patient and the provider. Patient's verbal consent for virtual visit was obtained on 09/11/24 at 2314. Documentation for date of: 09/11/24 Subjective Subjective Interval history: [facility], no new symptoms or recurrent episodes reported after admission. Tolerating oral diet well. Virtual exam Vital Signs Temp Pulse Resp BP Pulse Ox O2 Del Method O2 Flow Rate 97.5 F 94 19 121/77 97 Nasal Cannula 1 09/11/24 20:00 09/11/24 20:00 09/11/24 20:00 09/11/24 20:00 09/11/24 20:00 09/11/24 20:00 09/11/24 20:00 FiO2 96 09/11/24 04:00 Objective Labs 09/11/24 04:55 09/11/24 04:55 Labs: Laboratory Results - last 24 hr 09/11/24 04:55 WBC 11.7 H RBC 4.77 Hgb 12.3 L Hct 37.1 L MCV 78 L MCH 25.8 MCHC 33.2 RDW Std Deviation 51.9 H Plt Count 215 Neut % (Auto) 77 Lymph % (Auto) 14 Crowley % (Auto) 6 Eos % (Auto) 2 Baso % (Auto) 1 Neut # (Auto) 8.9 H Lymph # (Auto) 1.6 Crowley # (Auto) 0.7 Eos # (Auto) 0.2 Baso # (Auto) 0.1 Immature Gran # (Auto) 0.05 H Absolute Nucleated RBC 0.00 Immature Gran % 0 Nucleated RBC % 0 Sodium 132 L Potassium 4.3 D Chloride 98 Carbon Dioxide 28.2 Anion Gap 6 L BUN 22 Creatinine 0.9 Estim Creat Clear Calc 61.3 eGFR > 60 BUN/Creatinine Ratio 24 H Glucose 125 H D Calculated Osmolality 268 L Calcium 8.9 Phosphorus 2.1 L Magnesium 1.8 Assessment & Plan Assessment (1) Acute metabolic encephalopathy: resolved, mental status is back to baseline. White count is trending down. Blood pressure is better not needing midodrine Urine culture: grew E.coli, sensitive to many antibiotics including Nitrofurantoin. This patient is stable, consider physical therapy evaluation for ambulation. Pneumonia is better too on current antibiotics. (2) Diabetes mellitus: Continue to check fingerstick glucose and follow sliding scale keep it under controlled.
[2024-09-12] VITALS (9 sets, daily range): BP systolic 98–127; BP diastolic 59–92; PULSE 59–86; RESP 12–18; TEMP 36.2–36.5; O2SAT 93–99; BMI 23.6; BMI 22.9
[2024-09-12] MEDS: LEVOTHYROXINE SODIUM 125 MCG TABLET PO (05:10)
[2024-09-12] MEDS: INSULIN LISPRO (AdmeLOG) 1 UNIT/0.01 ML UNIT SC ×2 (07:19→11:33)
[2024-09-12] MEDS: NITROFURANTOIN MACRO 100 MG CAPSULE PO (09:17)
[2024-09-12] MEDS: PANTOPRAZOLE INJ 40 MG VIAL IVP (09:17)
--- NOTE | 2024-09-12 09:48 | PCS.ST ---
A new ST order was received. Pt already on the caseload. See Swallow Tx. Note.
--- NOTE | 2024-09-12 10:11 | PC.SS ---
Follow up note: SS spoke to patient who states he does not want to return to [facility]. The two other facilities that accepted are [facility] and [facility]. Patient prefers [facility] since he's been before. SS updated daughter. Daughter will pay for ambulance transport and preferred [facility]. Patient has d/c orders.
--- NOTE | 2024-09-12 13:57 | ESPR_ITS ---
Documentation for date of: 09/12/24 Subjective Subjective Interval history: Patient seen and examined in [facility], no new symptoms or recurrent episodes reported after admission. Tolerating oral diet well. Exam Vital Signs Temp Pulse Resp BP Pulse Ox O2 Del Method O2 Flow Rate 97.1 F 79 12 108/69 98 Nasal Cannula 1 09/12/24 11:39 09/12/24 12:00 09/12/24 11:39 09/12/24 11:39 09/12/24 11:39 09/12/24 11:39 09/12/24 11:39 FiO2 96 09/11/24 04:00 Narrative Exam Constitutional: AOx3, able to speak full sentences HEENT: NC/AT, PERRLA, oral mucosa moist, neck supple CVS: RRR, S1-S2 present, no murmurs RESP: CTAB GI: non distended, non tender to palpation, NBS MSK: full ROM, no peripheral edema, peripheral pulses present Skin: warm and dry, no rashes Neuro: dehydrating press operator II-XII grossly intact. Sensation grossly intact. Objective Labs 09/11/24 04:55 09/11/24 04:55 Labs: Laboratory Results - last 24 hr 09/12/24 04:35 Magnesium 2.0 Quality Measures Quality Measures VTE prophylaxis and sepsis Current suspected stage: sepsis Possible source: genitourinary Blood cultures ordered: yes Antibiotic ordered: Yes Advance care planning discussed with:: other Assessment & Plan Assessment Current Active Medications: Generic Name Dose Route Start Last Admin Trade Name Freq PRN Reason Stop Dose Admin Acetaminophen 650 mg 09/08/24 19:16 Acetaminophen 325 Mg Tablet PO 10/08/24 19:15 Q6H PRN Fever >101.5 Dextrose 25 ml 09/08/24 19:19 Dextrose 50%-Water Inj 50 Ml Syringe IV 10/08/24 19:18 Q15MIN PRN BG 50-70 responsive npo pt Dextrose 50 ml 09/08/24 19:19 Dextrose 50%-Water Inj 50 Ml Syringe IV 10/08/24 19:18 Q15MIN PRN BG <50 OR BG <70 & pt unresponsive Glucagon 1 mg 09/08/24 19:19 Glucagon Inj 1 Mg Vial IM Q15MIN PRN BG <70, and no IV access Insulin Glargine 15 unit 09/10/24 21:00 09/11/24 20:39 Insulin Glargine (Lantus) 5 Unit/0.05 Ml (Per 5 Units) SC 10/10/24 20:59 15 unit HS DES Administration Insulin Human Lispro 0 unit 09/10/24 16:46 09/12/24 11:33 Insulin Lispro (Admelog) 1 Unit/0.01 Ml Unit SC 10/09/24 16:44 6 unit AC DES Administration Protocol Levothyroxine Sodium 125 mcg 09/09/24 06:00 09/12/24 05:10 Levothyroxine Sodium 125 Mcg Tablet PO 10/09/24 05:59 125 mcg ACBR DES Administration Nitrofurantoin Macrocrystals 100 mg 09/10/24 13:45 09/12/24 09:17 Nitrofurantoin Macro 100 Mg Capsule PO 09/17/24 13:44 100 mg BID DES Administration Ondansetron HCl 4 mg 09/08/24 20:57 09/08/24 23:17 Ondansetron Inj 2 Mg/Ml Inj 2 Ml IV 10/08/24 20:56 4 mg Q8HR PRN Administration NAUSEA OR VOMITING Protocol Pantoprazole Sodium 40 mg 09/10/24 09:00 09/12/24 09:17 Pantoprazole Inj 40 Mg Vial IVP 10/10/24 08:59 40 mg QDAY DES Administration Plan (1) Acute metabolic encephalopathy: Assessment: resolved, mental status is back to baseline. White count is trending down. Blood pressure is better not needing midodrine Urine culture: grew E.coli, sensitive to many antibiotics including Nitrofurantoin. This patient is stable, consider physical therapy evaluation for ambulation. Pneumonia is better too on current antibiotics. Recommendations: -treat underlying condition, UTI (2) Diabetes mellitus: Recommendations: Continue to check fingerstick glucose and follow sliding scale keep it under controlled. - Patient's care was discussed with my attending physician, Dr. Isaac Mcgregor MD Internal Medicine PGY-3 Attending Provider Attestation/Addendum I personally have seen and examined the patient with the resident at the bedside and I agree with the residents findings assessment and plan of care. His presenting symptoms are related to sepsis/hypotension from metabolic encephalopathy. Patient is back to his baseline mentation, waiting for rehab placement. continue with PT to get stronger so that he can walk with as before
--- NOTE | 2024-09-12 14:18 | PD.RESDS ---
Planned Discharge Date 09/12/24 DS: Providers Provider Date of admission: 09/08/24 19:16 Primary care physician: David Gray MD Admitting Provider: Darell Chavez MD Attending Provider on Admission: Stewart Rincon MD Consults: 09/09/24 00:43 Referral Registered Dietitian Routine Comment: Referral Speech Therapy Routine Comment: 09/11/24 18:30 Referral Speech Therapy Urgent Comment: Pt c/o of 'feeling like food gets stuck in throat' Attending Provider on DC: Stewart Rincon MD Discharging Provider: Taz Vogel MD DS: Diagnosis Problem List Completed Was Problem List Reviewed/Reconciled?: Yes Hospital Course Hospital Course Hospital course: The patient is an 88-year-old male with a past medical history of hypertension, hyperlipidemia, type II DM, CAD status post stent, hypothyroidism, prostate cancer s/p radiation therapy and mild dementia, who was admitted for sepsis secondary to E. coli UTI and left base pneumonia. He was found to have septic shock and was admitted to ICU for 1 day for management of septic shock requiring pressor support. Blood cultures show no growth at 24 hours. Urine culture preliminarily showing gram-negative puja. He was downgraded back to medical floors today on 09/09/2024, as MAP maintaining >60. MRSA nares screen negative. Leukocytosis improving 17 -> 12.6 on IV Zosyn. Acute kidney injury present on admission has now resolved. Patient transitioned from zosyn to Nitrofurantoin based on urine culture and senstivity. Blood cultures negative at 48 hours. Problems on this admission: - Acute encephalopathy- resolved - Septic shock- resolved - Sepsis secondary to UTI - E.Coli UTI - Left base pneumonia - Acute kidney injury-resolving - Hyponatremia - Primary hypertension - Type II DM - Hypothyroidism Procedures: Alvarez - discontinued Discharge instructions: - Follow up with your PCP after discharge - Continue Nitrofurantoin 100mg twice a day, for 7 more days to complete antibiotic course - Changed insulin Glargine to Degludec 20 units every evening, for optimization - Continue all other home medications as prescribed. - Stop Lorazepam as high risk in elderly and discontinue Midodrine, if BP drops hold your Lisinopril dose instead. - Return to the ED if symptoms worsen Case was discussed with Dr Encinas PGY-2 and attending physician, Dr Sergey Vogel MD PGY-1 Disclaimer: This note was dictated by speech recognition. Minor errors in active directory engineer may be present due to voice recognition software. Status at Discharge Overall status at discharge: patient is back to baseline Time Spent with Patient Time attestation: Total time spent providing and/or coordinating discharge services: Time spent: Greater than 30 minutes Exam Vital Signs Temp Pulse Resp BP Pulse Ox O2 Del Method O2 Flow Rate 97.1 F 79 12 108/69 98 Nasal Cannula 1 09/12/24 11:39 09/12/24 12:00 09/12/24 11:39 09/12/24 11:39 09/12/24 11:39 09/12/24 11:39 09/12/24 11:39 FiO2 96 09/11/24 04:00 Narrative Exam GENERAL: AAOX3 NEURO: PERSONAL BANKING OFFICER grossly intact, moves extremities x4 HEENT: Moist mucosa. Eyes open, symmetrical, & clear CARDIO: No chest pain on palpation. Heart RRR, no obvious murmurs PULM: No noted coughing/dyspnea. Minimal crackles in left base of lung. Nasal cannula- 1L GI: Abdomen soft, nondistended, no pain on palpation. BSx4 URO/DIE PRESS OPERATOR:: No further abnormalities noted. SKIN/MSK/EXT: No wounds/rashes/edema/amputations, no pain on palpation. Pedal pulses present B/L Discharge Plan Plan Patient Disposition: Xfer Skilled Nsg Fac (SNF) Disposition Comment: Stable and returned to baseline Patient condition on transfer: Stable Care Plan Goals: - Follow up with your PCP after discharge - Continue Nitrofurantoin 100mg twice a day, for 7 more days to complete antibiotic course - Changed insulin Glargine to Degludec 20 units every evening, for optimization - Continue all other home medications as prescribed. - Stop Lorazepam as high risk in elderly and discontinue Midodrine, if BP drops hold your Lisinopril dose instead. - Return to the ED if symptoms worsen Prescriptions/Referrals Prescriptions/Med Rec: New insulin degludec 200 unit/mL (3 mL) insulin pen 20 unit subcut QPM 30 Days Qty: 3 0RF nitrofurantoin macrocrystal 100 mg capsule 100 mg PO BID 7 Days Qty: 14 0RF Rx Instructions: must administer with a meal/food Continued mirabegron [Myrbetriq] 50 mg Tablet Extended Release 24 Hr 50 mg PO QDAY bisacodyl [Dulcolax (bisacodyl)] 10 mg Suppository 10 mg IA QDAY PRN (Reason: Constipation) Rx Instructions: If MOM ineffective or no BM for 8 hours zinc sulfate 50 mg zinc (220 mg) Capsule 220 mg PO QDAY Qty: 30 0RF (DME) pen needle, diabetic [Novofine 32] 32 gauge x 1/4 needle See Rx Instructions .Route Qty: 100 2RF Rx Instructions: As directed (DME) lancets-blood glucose strips 30 gauge combo pack See Rx Instructions .Route Qty: 50 2RF Rx Instructions: [place] [place] FreeStyle [place] Misc See Rx Instructions .Route Qty: 1 0RF Rx Instructions: [place] [place] FreeStyle [place] 2 Sensor Kit See Rx Instructions .Route Qty: 1 0RF Rx Instructions: As [place] [place] pen needle, diabetic [Novofine 32] 32 gauge x 1/4 needle See Rx Instructions .Route Qty: 100 0RF Rx Instructions: As directed levothyroxine 100 mcg tablet 100 mcg PO QDAY Patient Comments: TAKE 1 TABLET BY MOUTH EVERY MORNING carvedilol 3.125 mg tablet 3.125 mg PO BID Patient Comments: TAKE 1 TABLET BY MOUTH DAILY tramadol 50 mg tablet 50 mg PO Q6H PRN (Reason: pain) lisinopril 2.5 mg tablet 2.5 mg PO QDAY magnesium hydroxide [Dulcolax (magnesium hydroxide)] 400 mg/5 mL suspension 30 ml PO .EVERY 72 HRS PRN (Reason: constipation) multivitamin [Daily Multi-Vitamin] Tablet 1 tab PO QAM nystatin 100,000 unit/gram powder 1 applic topical BID amino acids-protein hydrolys 15-101 gram-kcal/30 mL liquid 30 ea PO QDAY Patient Comments: 30 mL Rx Instructions: orally daily; Humulin R Regular U-100 Insuln 100 unit/mL solution 1 sliding scale dose subcut USEASDIRECTD Changed furosemide [Lasix] 40 mg tablet 40 mg PO DAILY Qty: 30 0RF ferrous sulfate [FeroSul] 325 mg (65 mg iron) tablet 325 mg PO EVERYOTHERDAY Qty: 30 0RF Patient Comments: TAKE 1 TABLET BY MOUTH EVERY DAY Discontinued acetaminophen 650 mg Tablet 650 mg PO Q4H PRN (Reason: Pain or Fever) ascorbic acid (vitamin C) [Vitamin C] 250 mg Tablet 500 mg PO BID Qty: 60 0RF lorazepam [Ativan] 0.5 mg tablet 0.5 mg PO HS PRN (Reason: anxiety) midodrine 5 mg tablet 5 mg PO Q8HR Rx Instructions: do not give last dose of day after 6PM or within 4 hrs of bedtime Enema Disposable 19-7 gram/118 mL enema 29.5 ml IA Q72H PRN (Reason: constipation) insulin glargine [Basaglar KwikPen U-100 Insulin] 100 unit/mL (3 mL) insulin pen 20 unit subcut QAM Referrals: David Gray MD [Primary Care Provider] - Patient/Caregiver Discharge Instructions Discharge Activity: as per physical therapy Education Materials: Using a Blood Sugar Log, Diabetes Exercise Plan Print Language: Latvian Stand Alone Forms: [place] Award Info., Patient Portal Info Letter Discharge Order Discharge Orders: Discharge (Routine); Ordered 09/12/24 Ordered By: Kip Encinas Quality Discharge Quality Measures VTE prophylaxis Attestestation MD Attestation I have examined the patient, reviewed labs and imaging findings, discussed the case with the resident(s), and reviewed entered orders. I agree with the plan of care as outlined in this note. Dr. Rincon
--- NOTE | 2024-09-12 15:36 | PC.NURSE ---
report given to [facility] nurse from [facility], all questions answered.
== END 2024-09-12 17:45 | disposition skilled nursing facility (03) | DRG 871 ==
LOC: SERX 18:23 → SERHOLD 20:39 → S2SX 09-09 06:27 → S3NX 09-10 05:43
PROVIDERS: Student in an Organized Health Care Education/Training Program; Admitting Provider Internal Medicine; Emergency Provider Emergency Medicine; PCP Psychiatry & Neurology Neurology; Visit Provider Student in an Organized Health Care Education/Training Program
DX: A41.51 Sepsis due to Escherichia coli [E. coli] (principal); G93.41 Metabolic encephalopathy; J18.9 Pneumonia, unspecified organism; J96.01 Acute respiratory failure with hypoxia; R65.21 Severe sepsis with septic shock; I50.32 Chronic diastolic (congestive) heart failure; E87.1 Hypo-osmolality and hyponatremia; N17.9 Acute kidney failure, unspecified; K92.2 Gastrointestinal hemorrhage, unspecified; E87.20 Acidosis, unspecified; Z16.39 Resistance to other specified antimicrobial drug; N39.0 Urinary tract infection, site not specified; I11.0 Hypertensive heart disease with heart failure; I25.10 Atherosclerotic heart disease of native coronary artery without angina pectoris; E87.8 Other disorders of electrolyte and fluid balance, not elsewhere classified; E78.5 Hyperlipidemia, unspecified; E03.9 Hypothyroidism, unspecified; H02.401 Unspecified ptosis of right eyelid; E11.9 Type 2 diabetes mellitus without complications; F03.A0 Unspecified dementia, mild, without behavioral disturbance, psychotic disturbance, mood disturbance, and anxiety; Z66 Do not resuscitate; Z85.46 Personal history of malignant neoplasm of prostate; Z92.3 Personal history of irradiation; Z95.5 Presence of coronary angioplasty implant and graft; E87.5 Hyperkalemia; Z79.4 Long term (current) use of insulin; Z79.890 Hormone replacement therapy
CPT/HCPCS: 36415; 70450; 71045; 80048; 80053; 81001; 83036; 83605; 83735; 84100; 84145; 84295; 84439; 84443; 84484; 85014; 85018; 85025; 87040; 87077; 87081; 87086; 87186; 87811; 92526; 92610; 93005; 93225; 96365; 96367; 97162; 99285; J0456; J0696; J1815; J2405; J2470; J2543; J3475; J3490; J7030; J7050; J7070; J7120; A9270

== ENCOUNTER 2024-09-27 22:20 | Emergency (ER) | payer MEDICARE, BC, SELFPAY ==
[2024-09-27 22:21] VITALS: PULSE 65; O2SAT 98; BMI 21.9
--- NOTE | 2024-09-27 22:24 | PD.EDADULT ---
ED General RME/HPI General Chief complaint: Urogenital-Male Stated complaint: BLOOD IN URINE Arrival date/time: 09/27/24 22:20 RME / HPI RME / HPI narrative: Patient is a 88 years old male with PMH of hypertension, hyperlipidemia, type II DM, CAD status post stent x2, hypothyroidism, prostate cancer s/p radiation therapy and on chronic vo and dementia presented to the ED due to blood in urine. Patient is poor historian. Patient reported discomfort in his penis and urge to urinate feeling which started recently. He cannot recall when his urine became bloody. He denies any fever, chills, chest pain, abdominal pain, nausea or vomiting. He cannot report when the last time he had a treatment for prostate cancer but previously he was on medications and had radiotherapy. Family member at the bedside reporting they do not know what was the reason for chronic Vo catheter placement. Related Data Home Medications ?Medication ?Instructions ?Recorded ?Confirmed mirabegron 50 mg tablet,extended 50 mg PO QDAY 08/27/17 09/09/24 release 24 hr (Myrbetriq) bisacodyl 10 mg rectal suppository 10 mg [place] QDAY PRN Constipation 07/27/23 09/09/24 (Dulcolax (bisacodyl)) amino acids-protein hydrolysate 15 30 ea PO QDAY WOUND HEALING 09/09/24 09/09/24 gram-101 kcal/30 mL oral liquid carvedilol 3.125 mg tablet 3.125 mg PO BID 09/09/24 09/09/24 insulin regular human 100 unit/mL 1 sliding scale dose subcut 09/09/24 09/09/24 injection solution (Humulin R USEASDIRECTD Regular U-100 Insulin) levothyroxine 100 mcg tablet 100 mcg PO QDAY 09/09/24 09/09/24 lisinopril 2.5 mg tablet 2.5 mg PO QDAY HTN- HOLD FOR SBP< 09/09/24 09/09/24 110 OR DBP <60 magnesium hydroxide 400 mg/5 mL 30 ml PO .EVERY 72 HRS PRN 09/09/24 09/09/24 oral suspension (Dulcolax constipation (magnesium hydroxide)) multivitamin (Daily Multi-Vitamin 1 tab PO QAM 09/09/24 09/09/24 tablet) nystatin 100,000 unit/gram topical 1 applic topical BID 09/09/24 09/09/24 powder tramadol 50 mg tablet 50 mg PO Q6H PRN pain 09/09/24 09/09/24 Previous Rx's ?Medication ?Instructions ?Recorded zinc sulfate 50 mg zinc (220 mg) 220 mg (4.4 x 50 mg zinc (220 mg)) 07/31/23 capsule PO QDAY #30 caps lancets 30 gauge and blood glucose #50 ea 08/08/23 strips combo pack pen needle, diabetic 32 gauge x #100 ea 08/08/2307/23 (Novofine 32) flash glucose scanning reader #1 ea 11/01/23 (FreeStyle Ector 2 Rodney) flash glucose sensor (FreeStyle #1 ea 11/01/23 Ector 2 Sensor kit) pen needle, diabetic 32 gauge x #100 ea 11/01/2307/23 (Novofine 32) ferrous sulfate 325 mg (65 mg 325 mg PO EVERYOTHERDAY #30 tabs 09/11/24 iron) tablet (FeroSul) furosemide 40 mg tablet (Lasix) 40 mg PO DAILY #30 tabs 09/11/24 insulin degludec 200 unit/mL (3 20 unit (0.1 mL) subcut QPM 1 09/11/24 mL) subcutaneous pen month #3 mL sulfamethoxazole 800 1 tab PO BID 10 days #20 tabs 09/28/24 mg-trimethoprim 160 mg tablet (Bactrim DS) Allergies Allergy/AdvReac Type Severity Reaction Status Date / Time No Known Allergies Allergy Verified 08/02/24 13:31 Review of Systems Review of Systems Systems Reviewed: All systems reviewed, normal except as documented ED Exam Narrative Physical exam: Gen: Well-developed and well-nourished elderly male. HEENT: NCAT, PERRLA, EOMI, MMM, anicteric conjunctivae. CVS: normal S1 and S2. RRR. No M/R/G. Resp: CTA B/L. No rhonchi, rales, crackles or wheezing. Abd: soft, non-tender, non-distended. BS+ in all 4 quadrants. : No CVA tenderness. Chronic Vo in place, some yellow discharge are seen at insertion site. Mild suprapubic and penile tenderness. Small ulcer on shaft of penis, tender to touch. MSK: Good ROM in BUE & BLE. No edema or rash. Neuro: CN II-XII grossly intact. Strength 5/5 in BUE & BLE. Alert and oriented x2. Psych: appropriate mood and affect. Course Quality Measures none Orders Category Date Time Status IV [Insert IV] NOW Care 09/27/24 22:[address] abdomen pelvis wo con Stat Exams 09/27/24 23:17 Taken CBC Stat Lab 09/27/24 22:56 Completed CMP [Comprehensive Metabolic Panel] Stat Lab 09/27/24 22:56 Completed Type and Screen Stat Lab 09/27/24 22:56 Completed Urinalysis Stat Lab 09/27/24 22:47 Completed Acetaminophen Ivpb [Ofirmev Inj] Med 09/28/24 00:25 Active 1,000 mg in 100 ml IV Q6HR Piper/Tazo 3.375 gm Premix [Zosyn] Med 09/27/24 23:23 Discontinued 3.375 gm in 50 ml IV X1 Vital Signs Vital signs: Vital Signs Temperature 97.5 F 09/27/24 22:25 Pulse Rate 58 L 09/27/24 22:25 Respiratory Rate 16 09/27/24 22:25 Blood Pressure 157/83 H 09/27/24 22:25 Pulse Oximetry (%) 100 09/27/24 22:25 Oxygen Delivery Method Room Air 09/27/24 22:25 [facility] Patient data External records reviewed:: [facility] previous records and EMS form Clinical information provided by:: patient, EMS and family Social determinants that could affect healthcare access:: none Patient has the following chronic illnesses:: hypertension, hyperlipidemia, type II DM, CAD status post stent x2, hypothyroidism, prostate cancer s/p radiation therapy and on chronic vo and dementia How is presenting disease/condition affected by chronic disease/condition?: caused by Evaluation data The following diagnostics were reviewed and interpreted by me:: lab results and radiology exam(s) Lab and/or radiology exams considered but not ordered:: US Interpretation Summary: Cystitis Medications Medications considered but not ordered:: na Medication administrations:: Medication Administration History Acetaminophen (Ofirmev Inj) 1,000 mg in 100 mls @ 250 mls/hr IV Q6HR DES Stop: 09/28/24 18:23 Last Admin: 09/28/24 01:16 Dose: Not Given Documented By: EF Non-Admin Reason: Cancelled by Provider Discontinued Medications Piperacillin/Tazobactam/Dextrose (Zosyn) 3.375 gm in 50 mls @ 100 mls/hr IV X1 ONE Stop: 09/27/24 23:52 Last Infusion: 09/28/24 01:16 Dose: Infused Documented By: Admin: 09/28/24 00:46 Dose: 100 mls/hr Documented By: NIKI as above Consultations Consultation(s) initiated? (list below): No Diagnosis Differential Diagnosis ED Complaint MDM: UTI, SBO, colitis, kidney stone Most likely diagnosis given after review of the tests above:: UTI Admission Indicated Admission indicated?: not indicated Explain why admission is indicated or not indicated:: Patient has catheter associated urinary tract infection. He does not have sepsis and hemodynamically and clinically stable. He will be discharged with antibiotics outpatient and will need to follow-up with urology as soon as possible for hematuria (resolved in the ED) and chronic vo catheter. Admission Request Was there a request for admission?: No Disposition Plan Disposition Plan: Discharge Discharge Attestation Discharge Attestation: The patient and all family members were given an opportunity to ask questions and understood the discharge instructions. Discharge instructions specifically effects, indications for sooner follow up or return to the emergency department, and the expected course of current diagnosis. Patient condition: Stable Medical Decision Making Differential Diagnosis Differential Diagnosis: UTI, SBO, colitis, kidney stone Lab Data 09/27/24 22:56 09/27/24 22:56 Labs: Lab Results 09/27/24 09/27/24 Range/Units 22:47 22:56 WBC 9.3 (3.8-10.6) Thou/mm3 RBC 4.54 (4.50-5.90) Miln/mm3 Hgb 12.0 L (13.5-16.0) g/dL Hct 36.8 L (41.0-53.0) % MCV 81 (80-100) fL MCH 26.4 (25.0-35.0) pg MCHC 32.6 (31.0-37.0) g/dl RDW Std Deviation 54.9 H (35.1-43.9) fL Plt Count 192 (140-440) Thou/mm3 Neut % (Auto) 69 (37-80) % Lymph % (Auto) 19 (10-50) % [place] % (Auto) 8 (0-12) % Eos % (Auto) 3 (0-10) % Baso % (Auto) 1 (0-2.5) % Neut # (Auto) 6.4 (1.8-7.7) Thou/mm3 Lymph # (Auto) 1.8 (1.0-4.8) Thou/mm3 [place] # (Auto) 0.7 (0.0-0.8) Thou/mm3 Eos # (Auto) 0.3 (0.0-0.5) Thou/mm3 Baso # (Auto) 0.1 (0.0-0.2) Thou/mm3 Immature Gran # (Auto) 0.04 H (0.00-0.00) Thou/mm3 Absolute Nucleated RBC 0.00 (0.00-0.00) Thou/mm3 Immature Gran % 0 (0-0) % Nucleated RBC % 0 (0) /100 WBC Sodium 138 (136-145) mMol/L Potassium 3.9 (3.4-5.1) mMol/L Chloride 101 (98-107) mMol/L Carbon Dioxide 31.5 H (20.0-31.0) mMol/L Anion Gap 6 L (7-16) BUN 17 (9-23) mg/dL Creatinine 0.7 (0.6-1.3) mg/dL Estim Creat Clear Calc 67.4 (>60) mL/min eGFR > 60 (60 - ) See Note BUN/Creatinine Ratio 24 H (12-20) Ratio Glucose 119 H (74-106) mg/dL Calculated Osmolality 278 (275-295) Calcium 9.2 (8.3-10.6) mg/dL Corrected Calcium 10.0 (8.5-10.1) mg/dL Total Bilirubin 0.4 (0.3-1.2) mg/dL AST 26 (0-34) U/L ALT 17 (10-49) U/L Alkaline Phosphatase 137 H (46-116) U/L Total Protein 6.7 (5.7-8.2) gm/dL Albumin 3.0 L (3.4-4.8) gm/dL Globulin 3.7 H (2.3-3.5) gm/dL Albumin/Globulin Ratio 0.8 L (1.2-2.2) Ur Collection Type Catheter Urine Color Brown A (Lt Yel-Yel) Urine Clarity Turbid A (Clear/Hazy) Urine pH 6.5 (5.0-7.0) Ur Specific [place] 1.019 (1.001-1.035) Urine Protein 1+ A (Neg - Trace) Urine Glucose (UA) 4+ A (Negative) Urine Ketones Negative (Negative) Urine Blood 3+ A (Negative) Urine Nitrite Negative (Negative) Urine Bilirubin Negative (Negative) Urine Urobilinogen (Auto) Negative (0.0-1.0) mg/dL Ur Leukocyte Esterase Positive (Negative) Urine RBC 483 H (0-3) /hpf Urine WBC 414 H (0-5) /hpf Ur Squamous Epith Cells 0 (0-5) /hpf Urine Bacteria None (None) Urine Yeast (Budding) Present A (None) Blood Type O Positive Antibody Screen NEGATIVE Blood Bank Wristband ID Yes Discharge Plan Plan Patient Disposition: HOME (Self Care) Patient condition on transfer: Stable Prescriptions/Referrals Prescriptions/Med Rec: New sulfamethoxazole-trimethoprim [Bactrim DS] 800-160 mg tablet 1 tab PO BID 10 Days Qty: 20 0RF No Action mirabegron [Myrbetriq] 50 mg Tablet Extended Release 24 Hr 50 mg PO QDAY bisacodyl [Dulcolax (bisacodyl)] 10 mg Suppository 10 mg [place] QDAY PRN (Reason: Constipation) Rx Instructions: If MOM ineffective or no BM for 8 hours zinc sulfate 50 mg zinc (220 mg) Capsule 220 mg PO QDAY Qty: 30 0RF (DME) pen needle, diabetic [Novofine 32] 32 gauge x 1/4 needle See Rx Instructions .Route Qty: 100 2RF Rx Instructions: As directed (DME) lancets-blood glucose strips 30 gauge combo pack See Rx Instructions .Route Qty: 50 2RF Rx Instructions: As directed (DME) FreeStyle Ector 2 Rodney Misc See Rx Instructions .Route Qty: 1 0RF Rx Instructions: As directed (DME) FreeStyle Ector 2 Sensor Kit See Rx Instructions .Route Qty: 1 0RF Rx Instructions: As directed (DME) pen needle, diabetic [Novofine 32] 32 gauge x 1/4 needle See Rx Instructions .Route Qty: 100 0RF Rx Instructions: As directed levothyroxine 100 mcg tablet 100 mcg PO QDAY Patient Comments: TAKE 1 TABLET BY MOUTH EVERY MORNING carvedilol 3.125 mg tablet 3.125 mg PO BID Patient Comments: TAKE 1 TABLET BY MOUTH DAILY tramadol 50 mg tablet 50 mg PO Q6H PRN (Reason: pain) lisinopril 2.5 mg tablet 2.5 mg PO QDAY magnesium hydroxide [Dulcolax (magnesium hydroxide)] 400 mg/5 mL suspension 30 ml PO .EVERY 72 HRS PRN (Reason: constipation) multivitamin [Daily Multi-Vitamin] Tablet 1 tab PO QAM nystatin 100,000 unit/gram powder 1 applic topical BID amino acids-protein hydrolys 15-101 gram-kcal/30 mL liquid 30 ea PO QDAY Patient Comments: 30 mL Rx Instructions: orally daily; Humulin R Regular U-100 Insuln 100 unit/mL solution 1 sliding scale dose subcut USEASDIRECTD insulin degludec 200 unit/mL (3 mL) insulin pen 20 unit subcut QPM 30 Days Qty: 3 0RF furosemide [Lasix] 40 mg tablet 40 mg PO DAILY Qty: 30 0RF ferrous sulfate [FeroSul] 325 mg (65 mg iron) tablet 325 mg PO EVERYOTHERDAY Qty: 30 0RF Patient Comments: TAKE 1 TABLET BY MOUTH EVERY DAY Referrals: Usman([facility])Loyd MD [Primary Care Provider] - In 1 week Problem List Clinical Impression: Catheter-associated urinary tract infection, Hematuria due to acute cystitis Patient/Caregiver Discharge Instructions Education Materials: Catheter-Linked Urinary Tract ..., ED Bladder Infection, Male (Adult) Additional Instructions: Recommendations after ER visit: -start taking Bactrim DS 1 tab twice daily for 10 days. -follow up with urology as soon as possible regarding hematuria and chronic vo catheter. -follow up with PCP within 1 week. -return to the ED if symptoms recur or worsen. Print Language: Wolof Stand Alone Forms: [place] Award Info., Patient Portal Info Letter Attestation Attestation I, Dr. Raza, have reviewed the history, exam, and assessment of the patient. I have evaluated the patient independently and agree with the plan of care documented by resident Kip Encinas. All diagnostic studies were reviewed and discussed. I confirm the diagnosis as documented by the resident. I was present during the Medical Decision Making for this patient. The patient's plan of care was created between myself and the Resident and consistent with our discussion of the patient's case.
[2024-09-27 22:25] VITALS: BP 157/83; PULSE 58; RESP 16; TEMP 36.4; O2SAT 100
--- NOTE | 2024-09-27 22:34 | PC.NURSE ---
patient biba for blood in urine with vo in place. upon assessment wound noted on patients foreskin patient is unsure of how long he has had this wound
[2024-09-27 22:52] LABS: Collection Type, Urine Catheter; Squamous Epithelial Cell,Urine 0 /hpf (0-5)
[2024-09-27 23:10] LABS: Bilirubin,Urine Negative (Negative); Blood,Urine 3+ (Negative); Budding Yeast,Urine Present; Clarity,Urine Turbid (Clear/Hazy); Color,Urine Brown (Lt Yel-Yel); Glucose, Urine 4+ (Negative); Ketones,Urine Negative (Negative); Leukocyte Esterase,Urine Positive (Negative); Nitrite,Urine Negative (Negative); PH,Urine 6.5 (5.0-7.0); Protein,Urine 1+ (Neg - Trace); RBC,Urine 483 /hpf (0-3); Specific Gravity,Urine 1.019 (1.001-1.035); Urobilinogen,Urine Negative mg/dL (0.0-1.0); WBC,Urine 414 /hpf (0-5)
[2024-09-27 23:12] LABS: Basophils # (Auto) 0.1 Thou/mm3 (0.0-0.2); Basophils % (Auto) 1 % (0-2.5); Eosinophils # (Auto) 0.3 Thou/mm3 (0.0-0.5); Eosinophils % (Auto) 3 % (0-10); Hematocrit 36.8 % (41.0-53.0); Immature Granulocytes % (Auto) 0 % (0-0); Immature Granulocytes Auto 0.04 Thou/mm3 (0.00-0.00); Lymphocytes # (Auto) 1.8 Thou/mm3 (1.0-4.8); Lymphocytes % (Auto) 19 % (10-50); Mean Corpuscular HGB Conc 32.6 g/dl (31.0-37.0); Mean Corpuscular Hemoglobin 26.4 pg (25.0-35.0); Mean Corpuscular Volume 81 fL (80-100); Monocytes # (Auto) 0.7 Thou/mm3 (0.0-0.8); Monocytes % (Auto) 8 % (0-12); Neutrophils # (Auto) 6.4 Thou/mm3 (1.8-7.7); Neutrophils % (Auto) 69 % (37-80); Nucleated Red Blood Cell % 0 /100 WBC (0); Platelet Count 192 Thou/mm3 (140-440); RDW Standard Deviation 54.9 fL (35.1-43.9); Red Blood Count 4.54 Miln/mm3 (4.50-5.90); White Blood Count 9.3 Thou/mm3 (3.8-10.6)
--- NOTE | 2024-09-27 23:17 | XR_ITS ---
Examination: CT abdomen and pelvis without contrast. Coronal 3-D reconstructions. Sagittal 2-D reconstructions. Date and time of exam:September 27, 2024. Indications: Abdominal pain, penile pain and ulcer today CTDI: vol (mGy): 7.22 DLP: (mGycm): 456 Technique: Axial images of the abdomen have been obtained, 3 mm slice thickness Intravenous contrast material has not been administered. Low dose protocols were performed. One or more of the following dose reduction techniques were used; automated exposure control, adjustment of the mA and/or KV according to patient size, use of iterative reconstruction technique. Findings: Atelectasis in the bases Mild irregularity of the liver contour Absent gallbladder Spleen not enlarged Heavy abdominal aortic calcification. 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
[2024-09-27 23:40] LABS: Alanine Aminotransferase 17 U/L (10-49); Albumin/Globulin Ratio 0.8 (1.2-2.2); Alkaline Phosphatase 137 U/L (46-116); Anion Gap 6 (7-16); Aspartate Amino Transferase 26 U/L (0-34); BUN/Creatinine Ratio 24 Ratio (12-20); Bilirubin,Total 0.4 mg/dL (0.3-1.2); Blood Urea Nitrogen 17 mg/dL (9-23); Calcium 9.2 mg/dL (8.3-10.6); Carbon Dioxide 31.5 mMol/L (20.0-31.0); Chloride 101 mMol/L (98-107); Creatinine (Component) 0.7 mg/dL (0.6-1.3); Estimated Creatinine Clearance 67.4 mL/min (>60); Globulin 3.7 gm/dL (2.3-3.5); Glucose 119 mg/dL (74-106); Osmolality,Calculated 278 (275-295); Potassium 3.9 mMol/L (3.4-5.1); Sodium 138 mMol/L (136-145); Total Protein 6.7 gm/dL (5.7-8.2); eGFR > 60 See Note
[2024-09-28] MEDS: PIPER/TAZO 3.375 GM PREMIX 3.375 GM/50 ML BAG IV (00:46)
--- NOTE | 2024-09-28 01:01 | PRELIM_ITS ---
CT scan of the abdomen and pelvis without intravenous contrast (axial sections with sagittal and coronal reformats) September 27, 2024 2359 hours Clinical History: Abdominal pain, penile pain and ulcer Comparison: None available at the time of this report. Findings: Small consolidation at the lung bases, atelectasis versus small foci of pneumonia. The pancreas, spleen, kidneys and adrenals are unremarkable on this noncontrast study. S/p cholecystectomy. No biliary duct dilation. Large hiatus hernia. Mild irregular liver margins. No evidence of bowel obstruction. No evidence of appendicitis. There is no mesenteric or retroperitoneal adenopathy. Air within the urinary bladder. Urinary bladder wall thickening associated with peripheral fat stranding. Alvarez catheter in place. There is no free fluid. Degenerative changes of the imaged portions of the spine. No acute fractures. No suspicious bone lesions. Right convex thoracolumbar scoliosis. Vascular calcifications. Fecal loading. Diverticulosis of the colon. Brachytherapy seeds in the prostate. Impression: Acute cystitis. Possible cirrhosis. Large hiatus hernia. Fecal loading. Small consolidation at the lung bases, atelectasis versus small foci of pneumonia. Report Electronically Signed By: Bucky Mulligan 09/28/2024 1:00:37 AM [EST]
--- NOTE | 2024-09-28 02:43 | PC.NURSE ---
report called to endy collins via telephone
[2024-09-28 02:58] VITALS: BP 170/75; PULSE 62; RESP 18; TEMP 36.7; O2SAT 100
== END 2024-09-28 02:59 | disposition home or self-care (01) ==
PROVIDERS: Student in an Organized Health Care Education/Training Program; Emergency Provider Emergency Medicine; PCP Hospitalist
DX: T83.511A Infection and inflammatory reaction due to indwelling urethral catheter, initial encounter (principal); E11.9 Type 2 diabetes mellitus without complications; E78.5 Hyperlipidemia, unspecified; I10 Essential (primary) hypertension; I25.10 Atherosclerotic heart disease of native coronary artery without angina pectoris; Z95.5 Presence of coronary angioplasty implant and graft; Z92.3 Personal history of irradiation; Z85.46 Personal history of malignant neoplasm of prostate
CPT/HCPCS: 36415; 74176; 80053; 81001; 85025; 86850; 86900; 86901; 96365; 99284; J2543

== ENCOUNTER → 2024-12-06 | Outpatient (CLI) | payer MEDICARE, BC, SELFPAY ==
[2024-12-06 14:37] LABS: Collection Type, Urine Clean Catch; Squamous Epithelial Cell,Urine 0 /hpf (0-5)
[2024-12-06 16:54] LABS: Bilirubin,Urine Negative (Negative); Blood,Urine 2+ (Negative); Clarity,Urine Clear (Clear/Hazy); Color,Urine Colorless (Lt Yel-Yel); Glucose, Urine 4+ (Negative); Ketones,Urine Negative (Negative); Leukocyte Esterase,Urine Positive (Negative); Nitrite,Urine Negative (Negative); Protein,Urine Negative (Neg - Trace); RBC,Urine 29 /hpf (0-3); Specific Gravity,Urine 1.006 (1.001-1.035); Urobilinogen,Urine Negative mg/dL (0.0-1.0); WBC,Urine 24 /hpf (0-5)
[2024-12-06 17:19] LABS: Culture Indicated,Urine Yes
== END | disposition home or self-care (01) ==
LOC: SLDO 14:33
PROVIDERS: PCP Internal Medicine; Referring Provider Internal Medicine; Visit Provider Internal Medicine
DX: N39.0 Urinary tract infection, site not specified (principal)
CPT/HCPCS: 81001; 87077; 87086; 87186

== ENCOUNTER → 2025-01-13 | Outpatient (CLI) | payer MEDICARE, BC, SELFPAY ==
[2025-01-13 13:09] LABS: Collection Type, Urine Clean Catch
[2025-01-13 13:35] LABS: Basophils # (Auto) 0.1 Thou/mm3 (0.0-0.2); Basophils % (Auto) 1 % (0-2.5); Eosinophils # (Auto) 0.5 Thou/mm3 (0.0-0.5); Eosinophils % (Auto) 5 % (0-10); Hematocrit 36.5 % (41.0-53.0); Immature Granulocytes % (Auto) 1 % (0-0); Immature Granulocytes Auto 0.05 Thou/mm3 (0.00-0.00); Lymphocytes # (Auto) 2.4 Thou/mm3 (1.0-4.8); Lymphocytes % (Auto) 24 % (10-50); Mean Corpuscular HGB Conc 32.9 g/dl (31.0-37.0); Mean Corpuscular Volume 85 fL (80-100); Monocytes # (Auto) 0.9 Thou/mm3 (0.0-0.8); Monocytes % (Auto) 9 % (0-12); Neutrophils # (Auto) 6.1 Thou/mm3 (1.8-7.7); Neutrophils % (Auto) 62 % (37-80); Nucleated Red Blood Cell % 0 /100 WBC (0); Platelet Count 192 Thou/mm3 (140-440); RDW Standard Deviation 45.8 fL (35.1-43.9); Red Blood Count 4.29 Miln/mm3 (4.50-5.90)
[2025-01-13 13:46] LABS: Bacteria,Urine Rare; Bilirubin,Urine Negative (Negative); Blood,Urine 1+ (Negative); Clarity,Urine Turbid (Clear/Hazy); Color,Urine Lt-Yellow (Lt Yel-Yel); Glucose, Urine 3+ (Negative); Ketones,Urine Negative (Negative); Leukocyte Esterase,Urine Positive (Negative); Nitrite,Urine Positive (Negative); Protein,Urine Trace (Neg - Trace); RBC,Urine 15 /hpf (0-3); Specific Gravity,Urine 1.014 (1.001-1.035); Squamous Epithelial Cell,Urine 1 /hpf (0-5); Urobilinogen,Urine Negative mg/dL (0.0-1.0); WBC,Urine 293 /hpf (0-5)
[2025-01-13 13:47] LABS: Culture Indicated,Urine Yes
[2025-01-13 13:54] LABS: Glucose Estimated Average 249 mg/dL (80-131); Hemoglobin A1C 10.3 % Hgb (4.8-6.0)
[2025-01-13 13:59] LABS: Alanine Aminotransferase 25 U/L (10-49); Albumin, Serum 3.3 gm/dL (3.4-4.8); Albumin/Globulin Ratio 1.1 (1.2-2.2); Alkaline Phosphatase 115 U/L (46-116); Anion Gap 11 (7-16); Aspartate Amino Transferase 36 U/L (0-34); BUN/Creatinine Ratio 21 Ratio (12-20); Bilirubin,Total 0.4 mg/dL (0.3-1.2); Blood Urea Nitrogen 19 mg/dL (9-23); Calcium 8.8 mg/dL (8.3-10.6); Calcium (Corrected) 9.4 mg/dL (8.5-10.1); Carbon Dioxide 26.4 mMol/L (20.0-31.0); Chloride 104 mMol/L (98-107); Creatinine (Component) 0.9 mg/dL (0.6-1.3); Glucose 191 mg/dL (74-106); Osmolality,Calculated 288 (275-295); Potassium 4.4 mMol/L (3.4-5.1); Sodium 141 mMol/L (136-145); Total Protein 6.3 gm/dL (5.7-8.2); eGFR > 60 See Note
== END | disposition home or self-care (01) ==
LOC: SLDO 13:01
PROVIDERS: PCP Internal Medicine; Referring Provider Internal Medicine; Visit Provider Internal Medicine
DX: N39.0 Urinary tract infection, site not specified (principal); I10 Essential (primary) hypertension; D50.0 Iron deficiency anemia secondary to blood loss (chronic); E11.65 Type 2 diabetes mellitus with hyperglycemia
CPT/HCPCS: 36415; 80053; 81001; 83036; 85025; 87077; 87086; 87186

== ENCOUNTER 2025-06-10 18:54 | Emergency (ER) | payer MEDICARE, BC, SELFPAY ==
--- NOTE | 2025-06-10 19:11 | EKG_ITS ---
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: : 1935 Requested By: Cuba Church Order Number: [id number] Reading MD: [place] Church Measurements Intervals [place] Rate: 72 P: CA: QRS: -59 QRSD: 128 T: 25 QT: 434 QTc: 475 Interpretive Statements ATRIAL FIBRILLATION WITH ABERRANT CONDUCTION OR VENTRICULAR PREMATURE COMPLEXES INDETERMINATE AXIS RIGHT BUNDLE BRANCH BLOCK [120+ ms QRS DURATION, UPRIGHT V1, 40+ ms S IN I/aVL/V4/V5/V6] LEFT ANTERIOR FASCICULAR BLOCK [QRS AXIS <= -45, QR IN I, RS IN II] POSSIBLE SEPTAL MYOCARDIAL INFARCTION , OF INDETERMINATE AGE [30 ms Q WAVE IN V1/V2] Compared to ECG 09/10/2024 05:02:39 Ventricular premature complex(es) now present Aberrant conduction of supraventricular beat(s) now present Indeterminate axis now present Left anterior fascicular block now present Ectopic atrial rhythm no longer present First degree AV block no longer present T-wave abnormality no longer present Possible ischemia no longer present Myocardial infarct finding still present /store/[id number]
[2025-06-10 19:14] VITALS: BP 140/76; PULSE 68; RESP 19; TEMP 36.6; O2SAT 96; BMI 25.2
--- NOTE | 2025-06-10 19:50 | PD.EDSOB ---
ED SOB =RME/HPI General Chief Complaint: Shortness of Breath/Dyspnea Stated Complaint: SOB X 1 week Time Seen by Provider: 06/10/25 19:11 Arrival date/time: 06/10/25 18:54 RME / HPI RME / HPI Narrative: DR. HWANG MAIN ED EVALUATION: Patient with Hx of ischemic cardiomyopathy s/p cardiac stent placement most recently > 5 years now presents with progressive SEGURA and orthopnea at rest. Also notes substernal chest pain onset since earlier today with ? exertional respiration. Notes palpitations and lightheadedness, although denies near-syncope. No antecedent fever, chills, or productive cough. PMH: Dementia, Myocardial Infarction, Coronary Artery Disease, Hypercholesterolemia, Hypertension, Asthma, Sleep Apnea, Diverticulosis, Gastroesophageal Reflux Disease, Kidney Stones, Prostate Cancer, Arthritis, Cataracts, Diabetes Mellitus Type 2, Hypothyroidism, Depression PSH: Coronary Stent, Joint Replacement Allergies: NKDA Social: Negative Related Data Home Medications ?Medication ?Instructions ?Recorded ?Confirmed mirabegron 50 mg tablet,extended 50 mg PO QDAY 08/27/17 09/09/24 release 24 hr (Myrbetriq) bisacodyl 10 mg rectal suppository 10 mg ND QDAY PRN Constipation 07/27/23 09/09/24 (Dulcolax (bisacodyl)) amino acids-protein hydrolysate 15 30 ea PO QDAY WOUND HEALING 09/09/24 09/09/24 gram-101 kcal/30 mL oral liquid carvedilol 3.125 mg tablet 3.125 mg PO BID 09/09/24 09/09/24 insulin regular human 100 unit/mL 1 sliding scale dose subcut 09/09/24 09/09/24 injection solution (Humulin R USEASDIRECTD Regular U-100 Insulin) levothyroxine 100 mcg tablet 100 mcg PO QDAY 09/09/24 09/09/24 lisinopril 2.5 mg tablet 2.5 mg PO QDAY HTN- HOLD FOR SBP< 09/09/24 09/09/24 110 OR DBP <60 magnesium hydroxide 400 mg/5 mL 30 ml PO .EVERY 72 HRS PRN 09/09/24 09/09/24 oral suspension (Dulcolax constipation (magnesium hydroxide)) multivitamin (Daily Multi-Vitamin 1 tab PO QAM 09/09/24 09/09/24 tablet) nystatin 100,000 unit/gram topical 1 applic topical BID 09/09/24 09/09/24 powder tramadol 50 mg tablet 50 mg PO Q6H PRN pain 09/09/24 09/09/24 Previous Rx's ?Medication ?Instructions ?Recorded zinc sulfate 50 mg zinc (220 mg) 220 mg (4.4 x 50 mg zinc (220 mg)) 07/31/23 capsule PO QDAY #30 caps lancets 30 gauge and blood glucose #50 ea 08/08/23 strips combo pack pen needle, diabetic 32 gauge x #100 ea 08/08/2307/23 (Novofine 32) flash glucose scanning reader #1 ea 11/01/23 (FreeStyle Ector 2 Xenia) flash glucose sensor (FreeStyle #1 ea 11/01/23 Ector 2 Sensor kit) pen needle, diabetic 32 gauge x #100 ea 11/01/2307/23 (Novofine 32) ferrous sulfate 325 mg (65 mg 325 mg PO EVERYOTHERDAY #30 tabs 09/11/24 iron) tablet (FeroSul) furosemide 40 mg tablet (Lasix) 40 mg PO DAILY #30 tabs 09/11/24 aspirin 81 mg tablet,delayed 81 mg PO QDAY #30 tabs 06/10/25 release (Ecotrin Low Strength) cephalexin 500 mg capsule 500 mg PO BID 7 days #14 caps 06/10/25 isosorbide dinitrate 30 mg tablet 30 mg PO .qd #30 tabs 06/10/25 tamsulosin 0.4 mg capsule (Flomax) 0.4 mg PO QDAY 30 days #30 caps 06/11/25 Allergies Allergy/AdvReac Type Severity Reaction Status Date / Time No Known Allergies Allergy Verified 06/10/25 18:59 Review of Systems Review of Systems Systems Reviewed: All systems reviewed, normal except as documented Past Medical History Past Medical History NEUROLOGIC: Positive Dementia CARDIAC: Positive Myocardial Infarction, Coronary Artery Disease, Hypercholesterolemia and Hypertension RESPIRATORY: Positive Asthma, Pneumonia and Sleep Apnea GASTROINTESTINAL: Positive Diverticulosis and Gastroesophageal Reflux Disease GENITOURINARY: Positive Kidney Stones and Prostate Cancer MUSCULOSKELETAL: Positive Arthritis and Fractures ENT: Positive Cataracts ENDOCRINE: Positive Diabetes Mellitus Type 2 and Hypothyroidism PSYCHO/SOCIAL: Positive Depression OTHER HISTORY: Positive Hospitalization, Blood Transfusions, Radiation Therapy, Chicken Pox, Measles, Mumps, Cancer and Prostate Cancer Family History FAMILY HISTORY: Positive Family Cardiac Disorders, Family Cancer and Family Anesthesia Reaction Surgical History SURGICAL: Positive Cardiac Surgery, Coronary Stent, Ear Surgery and Joint Replacement ED Exam Narrative Physical exam: GEN. APPEARANCE: The patient is alert awake oriented X-3 c/o mild chest discomfort and SOB, lying down comfortably, does not look ill/toxic. Patient has good eye contact. Patient is cooperative. VITALS: All vitals were reviewed and the pulse ox is 96%, which is normal according to my interpretation HEENT: Normocephalic, atraumatic and nontender. Pupils are equal and reactive. Oral mucosa is moist. NECK: Supple, nontender, no meningismus, no JVD. There is no thyromegaly and no lymphadenopathy. CHEST: Nontender on palpation no deformity and no crepitus. CARDIOVASCULAR: Heart regular rhythm, no murmur or gallop rub or extra beats. LUNGS: Diminished breath sounds bilaterally with symmetrical chest rise. No laboring tachypnea or wheezing. No intercostal subcostal retraction. No rales and no rhonchi. ABDOMEN: Soft, flat, nontender to palpation, no guarding or rebound tenderness. There are no abnormal masses palpated. No pulsatile masses or bruits. Active and normal bowel sounds. EXTREMITIES: Normal inspection and palpation. No edema or calf tenderness. No cyanosis. Patient is able to move all 4 extremities well SKIN: Warm and dry, no rashes noted. MUSCULOSKELETAL: No lumbar or midline bony tenderness. There is no CVA tenderness. No paraspinal muscle spasm or tenderness. NEURO: Cranial nerves II through XII grossly intact. There are no focal neurologic deficits noted. GCS is 15 PSYCHIATRIC: Patient is in normal mood and affect, cooperative. LYMPHATICS: No major lymphadenopathy noted. Course Quality Measures none Orders Category Date Time Status Accredited Legal Secretary NOW Care 06/10/25 19:12 Active Continuous Pulse Oximetry NOW Care 06/10/25 19:11 Completed EKG (ED ONLY) *Do not use* NOW Care 06/10/25 19:12 Completed Insert IV NOW Care 06/10/25 19:12 Active EKG (ED Only) Stat Exams 06/10/25 19:11 Draft XR chest 1V portable Stat Exams 06/10/25 20:24 Completed B-Type Natriuretic Peptide Stat Lab 06/10/25 19:32 Completed CBC Stat Lab 06/10/25 19:32 Completed Comprehensive Metabolic Panel Stat Lab 06/10/25 19:32 Completed Drug Screen,Urine Stat Lab 06/10/25 21:27 Completed Magnesium Stat Lab 06/10/25 19:32 Completed Troponin I Stat Lab 06/10/25 20:46 Completed Troponin I Stat Lab 06/10/25 23:43 Ordered Urinalysis, C/S if Indicated Stat Lab 06/10/25 21:27 Completed Urine Culture Stat Lab 06/10/25 21:27 Received Aspirin Med 06/10/25 19:55 Discontinued 325 mg PO X1 ONE Nitroglycerin Oint 2% [Nitro-paste Oint 2%] Med 06/10/25 19:55 Discontinued 1 inch TOP X1 ONE Sodium Chloride 0.9% 1000 ml [Ns] 1,000 ml Med 06/10/25 19:11 Active IV 100 mls/hr Oxygen Delivery NOW RT 06/10/25 19:11 Active Vital Signs Vital signs: Vital Signs Temperature 97.9 F 06/10/25 19:14 Pulse Rate 68 06/10/25 19:14 Respiratory Rate 19 06/10/25 19:14 Blood Pressure 140/76 H 06/10/25 19:14 Pulse Oximetry (%) 96 06/10/25 19:14 Oxygen Delivery Method Room Air 06/10/25 19:14 Shortness of Breath / Dyspnea MDM Narrative MDM Narrative:: Scribe Attestation: I, Sheila Ye, am scribing for and in the presence of Dr. Villafana. Provider Notation: Although this document has been carefully reviewed, there may still be some phonetic and other typographical errors. These errors are purely grammatical due to imperfections in the software program and should not be construed in any way to compromise the substance of the patient's medical care during this visit. Patient with Hx of ischemic cardiomyopathy s/p cardiac stent placement most recently > 5 years now presents with progressive SEGURA and orthopnea at rest. Also notes substernal chest pain onset since earlier today with ? exertional respiration. Please see PE findings. Laboratory markers demonstrate a normal WBC with a stable hemoglobin of 12.3, and normal platelet count. Serum chemistries demonstrated slightly reduced GFR and mildly elevated blood sugar of 240. BNP and Troponin I are marginally elevated. CXR demonstrates cardiomegaly and mild pulmonary venous congestion, no gross pleural effusions. Patient was treated with ASA, topical nitrates, and IV diuretics with brisk diereses, overtime demonstrated significant improvement. Lungs demonstrated improved aeration. Mildly elevated Troponin I is likely due to patient's compensated CHF. Will place on isosorbide dinitrate, reduce Losartan, and introduce baby ASA given Hx of multiple stents. Final diagnoses include acute exacerbation of CHF and UTI. Patient data External records reviewed:: [facility] previous records (Reviewed prior ED records from 09/08/24. Patient was seen for Acute metabolic encephalopathy.) Clinical information provided by:: patient Social determinants that could affect healthcare access:: none Patient has the following chronic illnesses:: Dementia, Coronary Artery Disease, Hypercholesterolemia, Hypertension, Asthma, Sleep Apnea, Diverticulosis, Gastroesophageal Reflux Disease, Kidney Stones, Prostate Cancer, Arthritis, Cataracts, Diabetes Mellitus Type 2, Hypothyroidism, Depression How is presenting disease/condition affected by chronic disease/condition?: exacerbated by Evaluation data The following diagnostics were reviewed and interpreted by me:: lab results, radiology exam(s) and EKG tracing(s) (EKG at 19:17 shows Atrial fibrillation with controlled rate of 72 bpm, leftward axis, no ventricular ectopy, left anterior ephraim-block present, underlying RBBB, per my interpretation.) Lab and/or radiology exams considered but not ordered:: None Interpretation Summary: RADIOLOGY Chest X-Ray: FINDINGS: Mild heart failure Moderate enlargement cardiac contour Prominent vascular congestion including central vascular engorgement Moderate elevation right hemidiaphragm Prominent osteopenia IMPRESSION: Mild heart failure Medications / Prescriptions Medications or Prescriptions considered but not ordered:: None Medication administrations:: Medication Administration History Sodium Chloride (Ns) 1,000 mls @ 100 mls/hr IV .Q10H ONE Stop: 06/11/25 05:10 Last Admin: 06/10/25 20:17 Dose: 100 mls/hr Documented By: JE Discontinued Medications Aspirin (Aspirin 325 Mg Tablet) 325 mg PO X1 ONE Stop: 06/10/25 19:56 Last Admin: 06/10/25 20:17 Dose: 325 mg Documented By: HARINDER Nitroglycerin (Nitroglycerin Oint 2% 1 Inch Packet) 1 inch TOP X1 ONE Stop: 06/10/25 19:56 Last Admin: 06/10/25 20:11 Dose: 1 inch Documented By: HARINDER See above if any Consultations Consultation(s) initiated? (list below): No Diagnosis Shortness of Breath Differential Diagnosis: congestive heart failure, community acquired pneumonia and pulmonary embolism Most likely diagnosis given after review of the tests above:: Acute exacerbation of CHF, UTI Admission Indicated Admission indicated?: not indicated Explain why admission is indicated or not indicated:: Patient does not meet admission criteria Admission Request Was there a request for admission?: No Disposition Plan Disposition Plan: Discharge Discharge Attestation Discharge Attestation: The patient and all family members were given an opportunity to ask questions and understood the discharge instructions. Discharge instructions specifically effects, indications for sooner follow up or return to the emergency department, and the expected course of current diagnosis. Patient condition: Stable Discharge Plan Plan Patient Disposition: HOME (Self Care) Discharge Disposition comment: stable Prescriptions/Referrals Prescriptions/Med Rec: New isosorbide dinitrate 30 mg tablet 30 mg PO .qd Qty: 30 0RF Rx Instructions: allow nitrate-free interval of 12-14 hrs per 24-hr period aspirin [Ecotrin Low Strength] 81 mg tablet,delayed release (DR/EC) 81 mg PO QDAY Qty: 30 0RF No Action mirabegron [Myrbetriq] 50 mg Tablet Extended Release 24 Hr 50 mg PO QDAY bisacodyl [Dulcolax (bisacodyl)] 10 mg Suppository 10 mg ND QDAY PRN (Reason: Constipation) Rx Instructions: If MOM ineffective or no BM for 8 hours zinc sulfate 50 mg zinc (220 mg) Capsule 220 mg PO QDAY Qty: 30 0RF (DME) pen needle, diabetic [Novofine 32] 32 gauge x 1/4 needle See Rx Instructions .Route Qty: 100 2RF Rx Instructions: As directed (DME) lancets-blood glucose strips 30 gauge combo pack See Rx Instructions .Route Qty: 50 2RF Rx Instructions: As directed (DME) FreeStyle Ector 2 Xenia Misc See Rx Instructions .Route Qty: 1 0RF Rx Instructions: As directed (DME) FreeStyle Ector 2 Sensor Kit See Rx Instructions .Route Qty: 1 0RF Rx Instructions: As directed (DME) pen needle, diabetic [Novofine 32] 32 gauge x 1/4 needle See Rx Instructions .Route Qty: 100 0RF Rx Instructions: As directed levothyroxine 100 mcg tablet 100 mcg PO QDAY Patient Comments: TAKE 1 TABLET BY MOUTH EVERY MORNING carvedilol 3.125 mg tablet 3.125 mg PO BID Patient Comments: TAKE 1 TABLET BY MOUTH DAILY tramadol 50 mg tablet 50 mg PO Q6H PRN (Reason: pain) lisinopril 2.5 mg tablet 2.5 mg PO QDAY magnesium hydroxide [Dulcolax (magnesium hydroxide)] 400 mg/5 mL suspension 30 ml PO .EVERY 72 HRS PRN (Reason: constipation) multivitamin [Daily Multi-Vitamin] Tablet 1 tab PO QAM nystatin 100,000 unit/gram powder 1 applic topical BID amino acids-protein hydrolys 15-101 gram-kcal/30 mL liquid 30 ea PO QDAY Patient Comments: 30 mL Rx Instructions: orally daily; Humulin R Regular U-100 Insuln 100 unit/mL solution 1 sliding scale dose subcut USEASDIRECTD furosemide [Lasix] 40 mg tablet 40 mg PO DAILY Qty: 30 0RF ferrous sulfate [FeroSul] 325 mg (65 mg iron) tablet 325 mg PO EVERYOTHERDAY Qty: 30 0RF Patient Comments: TAKE 1 TABLET BY MOUTH EVERY DAY Referrals: Chris Teran MD [Primary Care Provider, Internal Medicine] - In 1 week Problem List Clinical Impression: Acute exacerbation of CHF (congestive heart failure), UTI (urinary tract infection), Acute UTI Impression comment: CHF exacerbation Patient/Caregiver Discharge Instructions Discharge Activity: activity as tolerated Education Materials: Heart Failure: Being Active, Heart Failure Dc, ED Urinary Tract Infections in Men Additional Instructions: Will add oral nitrates and increase Lasix to twice daily for 3 days. Additionally patient to reduce losartan to 50 mg daily and continue to monitor blood pressures. Follow-up with stereo equipment repairer in 1 to 2 weeks return if worsening//recheck urine by PMD in 1 week Print Language: Spanish Stand Alone Forms: [place] Info., Patient Portal Info Letter
[2025-06-10 20:10] LABS: B-Type Natriuretic Peptide 1432 pg/mL (0-100)
[2025-06-10 20:11] VITALS: BP 148/84; PULSE 60
[2025-06-10 20:11] LABS: Alanine Aminotransferase 23 U/L (10-49); Albumin, Serum 3.7 gm/dL (3.4-4.8); Albumin/Globulin Ratio 1.2 (1.2-2.2); Alkaline Phosphatase 111 U/L (46-116); Anion Gap 9 (7-16); Aspartate Amino Transferase 27 U/L (0-34); BUN/Creatinine Ratio 12 Ratio (12-20); Bilirubin,Total 0.9 mg/dL (0.3-1.2); Blood Urea Nitrogen 13 mg/dL (9-23); Calcium 9.2 mg/dL (8.3-10.6); Calcium (Corrected) 9.4 mg/dL (8.5-10.1); Carbon Dioxide 28.7 mMol/L (20.0-31.0); Chloride 105 mMol/L (98-107); Creatinine (Component) 1.1 mg/dL (0.6-1.3); Estimated Creatinine Clearance 41.1 mL/min (>60); Globulin 3.0 gm/dL (2.3-3.5); Glucose 243 mg/dL (74-106); Magnesium 1.9 mg/dL (1.6-2.6); Osmolality,Calculated 293 (275-295); Potassium 3.8 mMol/L (3.4-5.1); Sodium 143 mMol/L (136-145); Total Protein 6.7 gm/dL (5.7-8.2); eGFR > 60 See Note
[2025-06-10] MEDS: NITROGLYCERIN OINT 2% 1 INCH PACKET TOP (20:11)
[2025-06-10 20:13] LABS: Basophils # (Auto) 0.0 Thou/mm3 (0.0-0.2); Basophils % (Auto) 1 % (0-2.5); Eosinophils # (Auto) 0.2 Thou/mm3 (0.0-0.5); Eosinophils % (Auto) 2 % (0-10); Hematocrit 38.1 % (41.0-53.0); Hemoglobin 12.3 g/dL (13.5-16.0); Immature Granulocytes Auto 0.02 Thou/mm3 (0.00-0.00); Lymphocytes # (Auto) 1.1 Thou/mm3 (1.0-4.8); Lymphocytes % (Auto) 18 % (10-50); Mean Corpuscular HGB Conc 32.3 g/dl (31.0-37.0); Mean Corpuscular Hemoglobin 27.4 pg (25.0-35.0); Mean Corpuscular Volume 85 fL (80-100); Monocytes # (Auto) 0.6 Thou/mm3 (0.0-0.8); Monocytes % (Auto) 9 % (0-12); Neutrophils # (Auto) 4.4 Thou/mm3 (1.8-7.7); Neutrophils % (Auto) 70 % (37-80); Nucleated Red Blood Cell # 0.00 Thou/mm3 (0.00-0.00); Nucleated Red Blood Cell % 0 /100 WBC (0); Platelet Count 152 Thou/mm3 (140-440); RDW Standard Deviation 52.1 fL (35.1-43.9); Red Blood Count 4.49 Miln/mm3 (4.50-5.90); White Blood Count 6.3 Thou/mm3 (3.8-10.6)
[2025-06-10] MEDS: SODIUM CHLORIDE 0.9% 1000 ML 1,000 ML 100 ML IV (20:17)
--- NOTE | 2025-06-10 20:24 | XR_ITS ---
EXAMINATION: AP chest single view TECHNIQUE: AP portable semiupright chest single view Date and time: June 10, 2025, 2030 hours, comparison September 08, 2024 INDICATIONS: Dyspnea shortness of breath 1 week FINDINGS: Mild heart failure Moderate enlargement cardiac contour Prominent vascular congestion including central vascular engorgement Moderate elevation right hemidiaphragm Prominent osteopenia IMPRESSION: Mild heart failure
[2025-06-10 21:00] VITALS: BP 144/86; PULSE 57; RESP 14; O2SAT 99
[2025-06-10 21:44] LABS: Troponin I 0.047 ng/mL (0.0-0.045)
[2025-06-10 21:49] LABS: Collection Type, Urine Clean Catch
[2025-06-10 21:58] LABS: Bilirubin,Urine Negative (Negative); Blood,Urine 1+ (Negative); Clarity,Urine Turbid (Clear/Hazy); Color,Urine Lt-Yellow (Lt Yel-Yel); Culture Indicated,Urine Yes; Glucose, Urine 2+ (Negative); Ketones,Urine Negative (Negative); Leukocyte Esterase,Urine Positive (Negative); Nitrite,Urine Negative (Negative); PH,Urine 6.0 (5.0-7.0); Protein,Urine 1+ (Neg - Trace); RBC,Urine 17 /hpf (0-3); Specific Gravity,Urine 1.019 (1.001-1.035); Squamous Epithelial Cell,Urine < 1 /hpf (0-5); Urobilinogen,Urine Negative mg/dL (0.0-1.0); WBC,Urine 189 /hpf (0-5)
[2025-06-10 22:25] VITALS: PULSE 57; RESP 14; O2SAT 99
[2025-06-10 22:25] LABS: Amphetamine/Methamp Scrn,U Negative (Negative); Barbiturate Screen,Urine Negative (Negative); Benzodiazepines Screen,Urine Negative (Negative); Benzoylecgonine Screen, Ur Negative (Negative); Fentanyl Screen,Urine Negative (Negative); Opiate Screen,Urine Negative (Negative); THC Screen,Urine Negative (Negative)
[2025-06-10 22:26] VITALS: PULSE 57
[2025-06-11 00:35] VITALS: BP 138/85; PULSE 62; RESP 16; TEMP 36.6; O2SAT 99
[2025-06-11 01:06] LABS: Troponin I 0.051 ng/mL (0.0-0.045)
[2025-06-11 01:22] VITALS: BP 124/85; PULSE 57; RESP 14; TEMP 37; O2SAT 99
== END 2025-06-11 01:23 | disposition home or self-care (01) ==
PROVIDERS: Emergency Provider Emergency Medicine; PCP Internal Medicine
DX: I11.0 Hypertensive heart disease with heart failure (principal); I50.9 Heart failure, unspecified; E03.9 Hypothyroidism, unspecified; E11.9 Type 2 diabetes mellitus without complications; E78.00 Pure hypercholesterolemia, unspecified; I25.10 Atherosclerotic heart disease of native coronary artery without angina pectoris; N39.0 Urinary tract infection, site not specified; Z79.82 Long term (current) use of aspirin; Z87.442 Personal history of urinary calculi; Z96.60 Presence of unspecified orthopedic joint implant; Z95.5 Presence of coronary angioplasty implant and graft; J45.909 Unspecified asthma, uncomplicated; F03.90 Unspecified dementia, unspecified severity, without behavioral disturbance, psychotic disturbance, mood disturbance, and anxiety; I25.2 Old myocardial infarction; I25.5 Ischemic cardiomyopathy; G47.30 Sleep apnea, unspecified; M19.90 Unspecified osteoarthritis, unspecified site
CPT/HCPCS: 36415; 71045; 80053; 80307; 81001; 83735; 83880; 84484; 85025; 87077; 87086; 87186; 93005; 99284; J7030; A9270